=== PATIENT | male | born 1945 | race Caucasian/White ===

== ENCOUNTER → 2016-09-21 | Outpatient (CLI) | payer BC ==
[~2016-09-21] MED LIST: ASPI-232 PO; ERGO1CAP41 PO; LOSA1TAB PO; LPT40 PO; METO50TA7 PO; PHEN-905 PO; SIMV40TA2 PO
[2016-09-21 15:33] LABS: BASO % 0.4 %; BASO ABS # 0.03 K/uL (0-0.2); COMPLETE YES; EOS % 6.6 %; HEMATOCRIT 39.2 % (42-52); IG% 0.1 %; LYMPH % 14.6 %; LYMPH ABS # 1.22 K/uL (1.2-3.4); MEAN CELL VOLUME 93.1 fL (80-100); MEAN CORPUSCULAR HEMOGLOBIN 32.8 pg (25-34); MEAN CORPUSCULAR HGB CONC 35.2 g/dl (32-36); MEAN PLATELET VOLUME 10.5 fL (7.4-10.4); MONO % 9.9 %; NEUT % 68.4 %; PLATELET COUNT 181 K/uL (130-400); RED BLOOD COUNT 4.21 M/uL (4.7-6.1); WHITE BLOOD COUNT 8.36 K/uL (4.8-10.8)
[2016-09-21 15:36] LABS: MANUAL MICROSCOPIC REQUIRED? NO; REVIEW REQ? NO; URINE APPEARANCE CLEAR (CLEAR); URINE BILIRUBIN NEG (NEG); URINE COLOR YELLOW; URINE EPITHELIAL CELL AUTO 0-5 /lpf (0-5); URINE NITRITE NEG (NEG); URINE SPECIFIC GRAVITY 1.027 (1.000-1.030); UROBILINOGEN NEG (NEG); ZZUR CULT IF INDIC CLEAN CATCH NO
[2016-09-21 15:45] LABS: BLOOD UREA NITROGEN 16 mg/dl (7-18); BUN/CREATININE RATIO 11.7 (10-20); CALCIUM 9.1 mg/dl (8.5-10.1); CARBON DIOXIDE 28 mmol/L (21-32); CHLORIDE 107 mmol/L (98-107); GLUCOSE 109 mg/dl (70-99); MAGNESIUM 2.3 mg/dl (1.8-2.4); POTASSIUM 4.4 mmol/L (3.5-5.1); SODIUM 144 mmol/L (136-145)
[2016-09-21 15:47] LABS: PHOSPHORUS 2.9 mg/dl (2.5-4.9)
[2016-09-21 16:08] LABS: URINE PROTIEN/CREAT RATIO 0.1 (0-0.2); URINE TOTAL PROTEIN 13.2 mg/dl (0-11.9)
== END | disposition home or self-care (01) ==
LOC: C.LAB1850 14:14
PROVIDERS: ATTEND Internal Medicine Nephrology
DX: N18.3 Chronic kidney disease, stage 3 (moderate) (principal)

== ENCOUNTER 2017-02-14 12:45 | Inpatient (IN) | payer BC, OTHER ==
[~2017-02-14] VITALS: Ht 188 cm; Wt 88.9 kg
[~2017-02-14 12:45] MED LIST changes: -ERGO1CAP41 PO; -LPT40 PO
[2017-02-14] MEDS ORDERED: ASPIRIN 81 MG CHEW PO STA (13:13)
[2017-02-14] MEDS ORDERED: LPT40 PO (13:32)
[2017-02-14] MEDS ORDERED: ERGO1CAP41 PO (13:32)
--- NOTE | 2017-02-14 13:39 | EMERGENCY ROOM VISIT NOTE ---
History Report prepared by Yanet: Lucille Howe Under the Supervision of: Dr. Iraida Bucio M.D. First contact with patient: 12:53 Chief Complaint: DIZZY Stated Complaint: DIZZY,SWEATING,FLUTTERING- HEART ATTACK 7 YRS AGO Nursing Triage Summary: Pt states he woke up sweating and dizzy. Did not pass but is feeling 95% better. His sister wanted him to be seen. Pt has hx "silent heart attack 7 years ago". Feels like someone tapped his left chest with with a finger. History of Present Illness The patient is a 71 year old male who presents to the Emergency Room with complaints of nearly resolved dizziness that started this morning. The patient describes the dizziness as lightheadedness. He states that he is feeling 95% better. The patient states that he wakes up at 0600 and then takes a nap around 0900. He states he has been doing that for years. The patient states that he woke up not long after falling asleep to take a nap and had a feeling of euphoria. The sensation ended and he fell back asleep. When he woke up from the nap, he experienced lightheadedness, sweating, some weakness of his bilateral arms, and some nausea. He states that he was able to stand, but the lightheadedness was significantly worse with standing. He denies any pain at that time, including chest pain. The patient called his sister because she is an EMT and he wanted to get her opinion on his symptoms. He denies any facial numbness or trouble speaking when talking to her on the phone. The patient's sister encouraged him to come into the ED due to his heart history. The patient states that he had a "silent" heart attack 7 years ago. He states that he had a quintuple bypass and mitral valve repair. The patient states that he has been pretty active since the beginning of the year. He states that he runs on the treadmill and rides a stationary bike every other day and on the other days the patient rides a stationary bike and lifts weights. The patient adds that he has been restricting his diet because he is going on vacation. The patient is a former smoker. He denies any history of diabetes. Source of History: patient Onset: this morning Position: head Quality: other (dizziness) Timing: resolved (nearly) Modifying Factors (Worsening): other (standing) Modifying Factors (Relieving): other (lying flat) Associated Symptoms: + nausea, + weakness (bilateral arms), No chest pain, No numbness Note: lightheadedness, sweating, no trouble speaking Review of Systems See HPI for pertinent positives & negatives. A total of 10 systems reviewed and were otherwise negative. Past Medical & Surgical Medical Problems: (1) Kidney stones Surgical Problems: (1) H/O heart bypass surgery (2) H/O mitral valve repair Family History FH: diverticulitis Social History Smoking Status: Never Smoker Alcohol Use: none Drug Use: none Marital Status: single Occupation Status: retired Current/Historical Medications Scheduled Aspirin (Aspir-81), 1 TAB PO QPM Atorvastatin (Atorvastatin Calcium), 40 MG PO QPM Ergocalciferol (Vitamin D 56219 Unit), 1 CAP PO MONTHLY Losartan Potassium (Cozaar), 25 MG PO QAM Metoprolol Succ (Toprol Xl) (Toprol-Xl), 50 MG PO QAM Fszzavhueftmq-Lkctxktxbb-Iacmc (Nyquil Severe Cold/Flu 5-6.25-10-325 mg/15Ml), 10 ML PO HS Allergies Coded Allergies: NO KNOWN DRUG ALLERGIES (Unverified Allergy, Unknown, NO, 02/14/17) Uncoded Allergies: SUNLIGHT (Allergy, Unknown, UNKNOWN, 02/14/17) Physical Exam Vital Signs Date Time Temp Pulse Resp B/P (MAP) Pulse Ox O2 Delivery O2 Flow Rate FiO2 02/14/17 14:40 Room Air 02/14/17 14:14 65 18 144/72 96 Room Air 02/14/17 13:32 63 18 127/71 98 Room Air 02/14/17 12:59 79 02/14/17 12:49 36.5 69 17 130/85 94 Room Air Physical Exam Vital signs reviewed. General: Well-appearing elderly male, in no significant distress. HEENT: No scleral icterus, PERRLA, neck supple. Atraumatic. Cardiovascular: Regular rate and rhythm, no extra sounds. Pulmonary: Clear to auscultation bilaterally, normal work of breathing. Abdomen: Soft, nontender, nondistended, positive bowel sounds. Musculoskeletal: Atraumatic, no peripheral edema. Neurologic: Patient awake alert and oriented x 3, full strength in all 4 extremities. Cranial nerves 2 through 12 grossly intact. Skin: Warm, dry, no rash Medical Decision & Procedures ER Provider Diagnostic Interpretation: Radiology results as stated below per my review and radiologist interpretation: CHEST ONE VIEW PORTABLE FINDINGS: Postoperative changes and a mitral valve ring is noted. The heart is normal in size. There are suture material within the left hilum. The lungs are clear. No pleural effusions. No pneumothorax. IMPRESSION: No acute process. Electronically signed by: Sd Regalado M.D. 02/14/2017 1:52 PM Dictated Date/Time: 02/14/2017 1:49 Laboratory Results 02/14/17 13:00 Red Blood Count 4.58, Mean Corpuscular Volume 93.4, Mean Corpuscular Hemoglobin 31.9, Mean Corpuscular Hemoglobin Concent 34.1, Mean Platelet Volume 10.7, Neutrophils (%) (Auto) 81.1, Lymphocytes (%) (Auto) 11.6, Monocytes (%) (Auto) 6.2, Eosinophils (%) (Auto) 0.7, Basophils (%) (Auto) 0.2, Neutrophils # (Auto) 8.01, Lymphocytes # (Auto) 1.15, Monocytes # (Auto) 0.61, Eosinophils # (Auto) 0.07, Basophils # (Auto) 0.02 02/14/17 13:00 Test 02/14/17 13:00 02/14/17 13:24 White Blood Count 9.88 K/uL (4.8-10.8) Red Blood Count 4.58 M/uL (4.7-6.1) Hemoglobin 14.6 g/dL (14.0-18.0) Hematocrit 42.8 % (42-52) Mean Corpuscular Volume 93.4 fL (80-100) Mean Corpuscular Hemoglobin 31.9 pg (25-34) Mean Corpuscular Hemoglobin Concent 34.1 g/dl (32-36) Platelet Count 200 K/uL (130-400) Mean Platelet Volume 10.7 fL (7.4-10.4) Neutrophils (%) (Auto) 81.1 % Lymphocytes (%) (Auto) 11.6 % Monocytes (%) (Auto) 6.2 % Eosinophils (%) (Auto) 0.7 % Basophils (%) (Auto) 0.2 % Neutrophils # (Auto) 8.01 K/uL (1.4-6.5) Lymphocytes # (Auto) 1.15 K/uL (1.2-3.4) Monocytes # (Auto) 0.61 K/uL (0.11-0.59) Eosinophils # (Auto) 0.07 K/uL (0-0.5) Basophils # (Auto) 0.02 K/uL (0-0.2) RDW Standard Deviation 45.8 fL (36.4-46.3) RDW Coefficient of Variation 13.3 % (11.5-14.5) Immature Granulocyte % (Auto) 0.2 % Immature Granulocyte # (Auto) 0.02 K/uL (0.00-0.02) Prothrombin Time 11.0 SECONDS (9.0-12.0) Prothromb Time International Ratio 1.0 (0.9-1.1) Activated Partial Thromboplast Time 24.5 SECONDS (21.0-31.0) Partial Thromboplastin Ratio 0.9 Anion Gap 9.0 mmol/L (3-11) Est Creatinine Clear Calc Drug Dose 51.0 ml/min Estimated GFR () 53.1 Estimated GFR (Non- 45.9 BUN/Creatinine Ratio 11.4 (10-20) Calcium Level 8.9 mg/dl (8.5-10.1) Total Bilirubin 1.0 mg/dl (0.2-1) Direct Bilirubin 0.2 mg/dl (0-0.2) Aspartate Amino Transf (AST/SGOT) 22 U/L (15-37) Alanine Aminotransferase (ALT/SGPT) 27 U/L (12-78) Alkaline Phosphatase 56 U/L (45-117) Total Creatine Kinase 260 U/L (39-308) Creatine Kinase MB 2.2 ng/ml (0.5-3.6) Creatine Kinase MB Ratio 0.8 (0-3.0) Total Protein 8.0 gm/dl (6.4-8.2) Albumin 4.3 gm/dl (3.4-5.0) Bedside Troponin I 0.310 ng/ml (0-0.045) Laboratory results per my review. Medications Administered Medications (Trade) Dose Ordered Sig/Monica Route Start Time Stop Time Status Last Admin Dose Admin Aspirin (Aspirin Chew) 243 mg NOW STAT PO 02/14/17 13:13 6/18/17 13:16 DC 02/14/17 13:31 243 MG Heparin Sodium/ Dextrose (Heparin 25,000 Unit/500ml D5W) 25,000 unit STK-MED ONCE .ROUTE 02/14/17 13:59 02/14/17 14:00 DC 02/14/17 14:10 25,000 UNIT Heparin Sodium (Porcine) (Heparin Sq 5000 Unit/0.5ml) 5,000 unit STK-MED ONCE .ROUTE 02/14/17 14:00 02/14/17 14:01 DC 02/14/17 14:10 5,000 UNIT ECG Rate (beats per minute): 75 Rhythm: sinus rhythm Findings: 1st degree AV block, no acute ischemic change, no ectopy, other ( nonspecific intraventricular conduction delay) Comparison ECG Date: 05/15/2010 Change: T-waves are no longer inverted laterally ED Course 1257: Past medical records reviewed. The patient was evaluated in room B11. A complete history and physical examination was performed. 1313: Ordered Aspirin 243 mg PO IV 1348: Ordered Heparin Sodium/Dextrose 1 ea 1350: Upon reevaluation, the patient is resting comfortably. I discussed laboratory and radiographic results with him. He verbalized agreement of the treatment plan. The patient will be evaluated for further management and care. 1354: I reviewed the patient's case with Dr. Nia Dahl - [facility]. He will evaluate the patient for further management. Medical Decision Differential diagnoses includes acute coronary syndrome, pulmonary embolus, aortic dissection, musculoskeletal pain, pneumonia, pleural effusion, pneumothorax, gastritis, peptic ulcer disease. Medication Reconciliation: I attest that I have personally reviewed the patient' s current medication list. Blood Pressure Screening: Patient was found to have a slightly elevated blood pressure due to circumstances. I do not believe that the patient requires hypertension monitoring. This pt was evaluated and appeared to be in no distress. IV access was obtained and lab work was drawn. He was given aspirin to chew. EKG was obtained and reveals 1st degree AV block, intraventricular conduction delay. Laboratory work reveals a mild elevation of the cardiac enzymes at 0.31. Patient was placed on a low-dose heparin drip. Chest x-ray reveals postsurgical change. He was discussed with the hospitalist service will evaluate the patient for admission and further management. Patient is aware of the plan and agrees. Consults Time Called: [id number] Consulting Physician: Dr. Nia CURTIS Returned Call: [phone] I reviewed the patient's case with Dr. Nia CURTIS. He will evaluate the patient for further management. Impression Primary Impression: Acute coronary syndrome Scribe Attestation The scribe's documentation has been prepared under my direction and personally reviewed by me in its entirety. I confirm that the note above accurately reflects all work, treatment, procedures, and medical decision making performed by me. Departure Information Dispostion Being Evaluated By Hospitalist Referrals No Doctor, Assigned (PCP) Patient Instructions [facility]
[2017-02-14 13:44] LABS: BASO % 0.2 %; BASO ABS # 0.02 K/uL (0-0.2); COMPLETE YES; EOS % 0.7 %; HEMATOCRIT 42.8 % (42-52); IG% 0.2 %; LYMPH % 11.6 %; LYMPH ABS # 1.15 K/uL (1.2-3.4); MEAN CELL VOLUME 93.4 fL (80-100); MEAN CORPUSCULAR HEMOGLOBIN 31.9 pg (25-34); MEAN CORPUSCULAR HGB CONC 34.1 g/dl (32-36); MEAN PLATELET VOLUME 10.7 fL (7.4-10.4); MONO % 6.2 %; NEUT % 81.1 %; PLATELET COUNT 200 K/uL (130-400); RED BLOOD COUNT 4.58 M/uL (4.7-6.1); WHITE BLOOD COUNT 9.88 K/uL (4.8-10.8)
[2017-02-14 13:51] LABS: BUN/CREATININE RATIO 11.4 (10-20); CALCIUM 8.9 mg/dl (8.5-10.1); CREATININE 1.5 mg/dl (0.60-1.40); POTASSIUM 4.2 mmol/L (3.5-5.1)
--- NOTE | 2017-02-14 13:53 | DIAGNOSTIC IMAGING REPORT ---
CHEST ONE VIEW PORTABLE HISTORY: Atypical chest pain. COMPARISON: Chest CT 09/04/2011. FINDINGS: Postoperative changes and a mitral valve ring is noted. The heart is normal in size. There are suture material within the left hilum. The lungs are clear. No pleural effusions. No pneumothorax. IMPRESSION: No acute process. Electronically signed by: Sd Regalado M.D. 02/14/2017 1:52 PM Dictated Date/Time: 02/14/2017 1:49 PM
[2017-02-14 13:56] LABS: CKMB/CK RATIO 0.8 (0-3.0)
[2017-02-14] MEDS ORDERED: HEPARIN 25000 UNIT/500 ML D5W ONE (13:59)
[2017-02-14] MEDS ORDERED: HEPARIN SOD 5000 UNIT/0.5 ML CARP ONE (14:00)
[2017-02-14 14:01] LABS: PARTIAL THROMBOPLASTIN RATIO 0.9
[2017-02-14] MEDS ORDERED: MAGNESIUM HYDROXIDE SUSP 30 ML UDC PO PRN (14:15)
[2017-02-14] MEDS ORDERED: MoRPHine SULFATE 2 MG/ML CARP IV PRN (14:15)
[2017-02-14] MEDS ORDERED: NITROGLYCERIN 0.4 MG SL PER TAB CHARGE SL PRN (14:15)
[2017-02-14] MEDS ORDERED: POLYETHYLENE (MIRALAX) 17 GM PACK PO PRN (14:15)
[2017-02-14] MEDS ORDERED: ALUMINUM/MAGNESIUM/SIMETH (MAALOX MAX) 30 ML UDC PO PRN (14:15)
[2017-02-14 14:40] VITALS: Ht 188 cm; Wt 88.9 kg
--- NOTE | 2017-02-14 15:20 | DIAGNOSTIC IMAGING REPORT ---
HEAD CT NONCONTRAST CT DOSE: 614.27 mGy.cm HISTORY: dizziness TECHNIQUE: Multiaxial CT images of the head were performed without the use of intravenous contrast. Automated exposure control was utilized for this study. Comparison: None. Findings: The paranasal sinuses and mastoid air cells are clear. The calvarium and skull base are intact. The ventricles and sulci are within normal limits. There is no mass, hematoma, midline shift, or acute infarct. There is crowding of the cerebellar tonsils at the foramen magnum. 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 No hydrocephalus. Impression: No acute intracranial abnormality. 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 This can be confirmed with nonemergent follow-up brain MRI. Electronically signed by: Sd Regalado M.D. 02/14/2017 3:19 PM Dictated Date/Time: 02/14/2017 3:12 PM
[2017-02-14 15:31] VITALS: BP 133/75; PULSE 66; TEMP 36.6; O2SAT 96
[2017-02-14 15:59] VITALS: BP 123/68; PULSE 60; TEMP 36.8; O2SAT 96
[2017-02-14 16:00] VITALS: O2SAT 96
[2017-02-14] MEDS ORDERED: ASPIRIN 81 MG CHEW PO SCH (16:00)
[2017-02-14] MEDS ORDERED: NURSING VERBAL MED ORDER ONE ×2 (16:15→17:45)
[2017-02-14] MEDS: HEPARIN 25,000 UNIT/500ML D5W 500 ML IV PRN ×2 (16:36→23:44)
[2017-02-14] MEDS: SODIUM CHLORIDE 0.9% 1000ML 1,000 ML IV SCH (16:36)
[2017-02-14] MEDS: NITROGLYCERIN OINT 2% 1GM PACKET EXT SCH ×2 (16:37→22:51)
--- NOTE | 2017-02-14 17:54 | HISTORY & PHYSICAL EXAMINATION ---
DATE OF ADMISSION: 02/14/2017 CHIEF COMPLAINT: Dizziness. HISTORY OF PRESENT ILLNESS: The patient is a 71-year-old white man with past medical history of CAD status post CABG in 2009. Also had history of atrial fibrillation around that time, status post cardioversion, not on any anticoagulation since then. The patient was in his regular state of health, was going for a trip to [place] today with his sister, so he has been trying to lose weight and successfully was able to lose about 5 pounds. The patient today woke up in the morning at 6:00 a.m., had breakfast and went to sleep again for an hour. While he was sleeping, he described a very strange feeling of chest , pleasant feeling, like euphoria that comes to him once or twice a year. He had this feeling and he woke up from sleep by that feeling. Then he went back to sleep again. Then he woke up with some lightheadedness and dizziness with diaphoresis, accompanied with weakness in both upper extremities. Denies any chest pain but feels like somebody tapped gently on his chest. That might be the way he is describing palpitations. He called his sister to tell her that he might not be able to come to me today, so she advised him to come to the ED for further evaluation and management. The patient came to the ER. His symptoms of dizziness have resolved and symptoms of diaphoresis also improved. The patient stated that when he had his quintuple bypass 7 years ago and mitral valve repair, he had a silent HI at that time and his only sign was getting exertional shortness of breath. The patient's troponin in ED was borderline positive and ER physician has initiated heparin drip and called me for evaluation. REVIEW OF SYSTEMS: Denies any headache but admits to dizziness. Denies any blurring of vision. Denies any chest pain, but describes a feeling of tapping in his chest as per HPI. Denies any diarrhea, blood in the stool. Denies any burning sensation in the urine or blood. Denies any abdominal pain, nausea, vomiting. Denies any runny nose, stuffy nose, sore throat. Denies any cough. Admits to some shortness of breath accompanying the symptoms described above. Denies any fever or chills. Denies any depression or psychological illness. Denies any joint swelling or pain. Denies any rash or ulcers on the skin. Denies any lymph nodes or bruises. FAMILY HISTORY: Father from heart attack at age 64. SOCIAL HISTORY: He is a remote smoker, quit smoking in 1988. PAST MEDICAL HISTORY: 1. Kidney stones. 2. CAD, status post bypass and mitral valve repair. 3. Atrial fibrillation, status post cardioversion in 2009. 4. Chronic kidney disease stage II-III. HOME MEDICATIONS: Aspirin 81 mg daily, atorvastatin 40 mg daily, vitamin D 50,000 units daily, losartan 25 mg q.a.m., metoprolol 50 mg p.o. q.a.m. ALLERGIES: No known drug allergies. PHYSICAL EXAMINATION: VITAL SIGNS: Temperature 36.5, heart rate 65, respirations 18, blood pressure 144/72, pulse ox 96% on room air. HEENT: No jaundice, no pallor, wet mucous membranes. NECK: Supple. HEART: S1, S2 normal. No gallop, rub or murmur. LUNGS: Clear to auscultation bilaterally. Normal chest wall expansion. ABDOMEN: Soft, nontender, nondistended. NEUROLOGIC: Awake, alert, oriented to time, place, and person. Moves all extremities. Sensation intact. Cranial nerves II-XII appear to be intact. SKIN: No rash or erythema. LOWER EXTREMITIES: No swelling, edema or cyanosis. PSYCHIATRIC: Appropriate affect and process of thinking. IMAGING: Chest x-ray showed no acute process. LABORATORY DATA: White blood cell count 9.8, hemoglobin 14.6, platelet 200. Blood sugar 110, BUN 17, creatinine 1.5, sodium 143, potassium is 4.7. Bedside troponin was 0.3. EKG with sinus rhythm, first degree AV block, no acute ischemic changes but nonspecific ST-T wave changes. ASSESSMENT AND PLAN: 1. Non-ST elevation myocardial infarction versus elevated troponin underneath. Admit patient to telemetry. 2. Sublingual nitroglycerin p.r.n. symptoms or pain. 3. Restart his beta gema. 4. Aspirin. 5. One dose of Lipitor 80 mg and then from tomorrow, he can go back to 40 mg daily. 6. Obtain hemoglobin A1c. 7. Obtain lipid panel to stratify his risk. 8. Consult morning show host. 9. Serial cardiac enzymes. 10. Hypertension. Start the patient's metoprolol. Monitor blood pressure. Hold losartan for possible contrast exposure if needed. 11. Chronic kidney disease stage III, currently at baseline 1.5 creatinine. We will start patient on Mucomyst oral for anticipated contrast exposure if cardiac catheterization is required. 12. Continue IV fluid hydration. 13. Dizziness, currently resolved. 14. Obtain CT scan head prior to starting heparin. Rule out any intracranial pathology. 15. History of coronary artery disease status post CABG, management as above. 16. We will follow up next troponin set. If there is worsening in troponin, we will consult morning show host stat. Further recommendation will follow. MTDD
[2017-02-14] MEDS: ATORVASTATIN 40 MG TAB PO SCH (18:32)
[2017-02-14 19:22] VITALS: BP 111/62; PULSE 57; TEMP 37.7; O2SAT 95
[2017-02-14] MEDS: ACETAMINOPHEN 325 MG TAB PO PRN (20:51)
[2017-02-14] MEDS: METOPROLOL TARTRATE 25 MG TAB PO SCH (21:00)
[2017-02-14] MEDS: ACETYLCYSTEINE 1200 MG/6 ML SYR PO SCH (21:18)
[2017-02-14 22:32] LABS: PARTIAL THROMBOPLASTIN RATIO 1.4
[2017-02-14 23:24] VITALS: BP 113/52; PULSE 50; TEMP 36.5; O2SAT 95
[2017-02-14] MEDS ORDERED: HEPARIN IV BOLUS 7,000 UNIT in SYRINGE 0 ML IV STA (23:33)
[2017-02-15] MEDS: NITROGLYCERIN OINT 2% 1GM PACKET EXT SCH ×2 (03:49→10:23)
[2017-02-15 04:00] VITALS: BP 116/56; PULSE 45; TEMP 36.7; O2SAT 96
[2017-02-15] MEDS: SODIUM CHLORIDE 0.9% 1000ML 1,000 ML IV SCH (05:28)
[2017-02-15 05:53] LABS: BASO % 0.4 %; BASO ABS # 0.03 K/uL (0-0.2); COMPLETE YES; EOS % 4.5 %; HEMATOCRIT 36.7 % (42-52); IG% 0.1 %; LYMPH % 23.6 %; LYMPH ABS # 1.59 K/uL (1.2-3.4); MEAN CELL VOLUME 92.7 fL (80-100); MEAN CORPUSCULAR HEMOGLOBIN 31.8 pg (25-34); MEAN CORPUSCULAR HGB CONC 34.3 g/dl (32-36); MEAN PLATELET VOLUME 10.4 fL (7.4-10.4); MONO % 10.1 %; NEUT % 61.3 %; PLATELET COUNT 147 K/uL (130-400); RED BLOOD COUNT 3.96 M/uL (4.7-6.1); WHITE BLOOD COUNT 6.74 K/uL (4.8-10.8)
[2017-02-15 06:15] LABS: PARTIAL THROMBOPLASTIN RATIO 4.1
[2017-02-15 06:19] LABS: BUN/CREATININE RATIO 12.4 (10-20); CALCIUM 7.9 mg/dl (8.5-10.1); CREATININE 1.2 mg/dl (0.60-1.40); MAGNESIUM 2.3 mg/dl (1.8-2.4); POTASSIUM 3.8 mmol/L (3.5-5.1)
[2017-02-15 06:29] LABS: ALB/GLOB RATIO 1.1 (0.9-2); CHOLESTEROL/HDL RATIO 2.1
[2017-02-15] MEDS: ACETAMINOPHEN 325 MG TAB PO PRN (06:37)
[2017-02-15] MEDS: ATORVASTATIN 40 MG TAB PO SCH (08:18)
[2017-02-15 08:20] LABS: ESTIMATED AVERAGE GLUCOSE 123 mg/dl; HA1C FLAG Normal (Normal)
[2017-02-15] MEDS: METOPROLOL TARTRATE 25 MG TAB PO SCH (08:22)
[2017-02-15 08:28] VITALS: BP 106/69; PULSE 58; TEMP 36.6; O2SAT 94
[2017-02-15] MEDS ORDERED: ASPIRIN 325 MG ECTAB PO SCH (09:00)
[2017-02-15] MEDS: ACETYLCYSTEINE 1200 MG/6 ML SYR PO SCH (10:22)
[2017-02-15 11:43] VITALS: BP 117/55; PULSE 51; TEMP 36.7; O2SAT 95
--- NOTE | 2017-02-15 12:23 | CARDIOLOGY CONSULTATION ---
DATE OF CONSULTATION: 02/15/2017 REFERRING PHYSICIAN: Dr. Lis Montalvo. CHIEF COMPLAINT: Dizziness. HISTORY OF PRESENT ILLNESS: Mr. Raymond Longoria is a 71-year-old gentleman with a history of coronary artery disease and mitral valve repair, who experienced an episode of dizziness yesterday morning. The patient states that he awoke at his usual time at 6:00 a.m. in the morning and performed some activities such as packing his car for a scheduled trip to [place]. Approximately at 9:30, the patient decided to lie down for a brief nap during which time he felt a brief episode of a "head sanderson." This is a sensation that he experiences perhaps twice a year. It is a sense of almost euphoria. When awoke from sleep, he was feeling well but attempted to get up out of bed and felt quite dizzy, this was also associated with diaphoresis. The patient felt like he should lie back down, and upon awakening later that morning, he felt perfectly fine. The patient did not report symptoms of palpitations during this episode. He did not have any nausea. He had no symptoms of chest discomfort, chest pressure or breathing difficulty. Based on the nature of these symptoms, he later called his sister whom he was scheduled to visit and she recommended he seek an evaluation at the medical center. Upon arriving at [facility], serum studies suggested elevated cardiac biomarkers and the patient was, therefore, admitted for observation. It should be noted that at the time of presentation to the Emergency Room, the patient had no symptoms. On interview this morning, the patient claims to be feeling well. He states that this episode was fairly transient in nature and differed from his usual episodes of a "head sanderson" in that there was some diaphoresis and dizziness. He states that he has maintained his usual level of activity recently which involves strenuous exertion at the [facility] several times per week. This involves both aerobic and weight training. He has not had to reduce his activity recently. He has not described additional symptoms recently. He has never had symptoms of chest discomfort or chest pressure even leading up to his bypass surgery. It seems that the patient's surgery was indicated more for valvular heart disease and he was discovered to have significant coronary disease in the process of that evaluation. The patient states that his exercise tolerance leading up to his valve repair was the primary symptom. PAST MEDICAL HISTORY: 1. Mitral regurgitation, status post valve repair in 2009. 2. Coronary artery disease. The patient is status post 5-vessel bypass in 2009. 3. Left atrial appendage ligation. 4. Postoperative atrial fibrillation, no documented recurrence. 5. Mild renal insufficiency. 6. Diverticulosis. 7. Nephrolithiasis. 8. Secondary hyperparathyroidism. 9. Vocal cord paralysis. 10. Allergic rhinitis. PAST SURGICAL HISTORY: Significant for: 1. The aforementioned mitral valve repair, 5-vessel bypass, and left atrial appendage ligation in 2009. 2. Tonsillectomy. FAMILY HISTORY: Significant for coronary artery disease but not premature disease. SOCIAL HISTORY: The patient is a former smoker, currently a nonsmoker. He denies significant alcohol use. Currently lives independently. REVIEW OF SYSTEMS: A complete review of systems was performed and the pertinent positives noted in the history of present illness, the remainder being negative. He otherwise claims to be eating well, although he is watching his weight and has effected some mild weight loss. He denies any change in his bowel or bladder habits. He denies any sense of palpitation. He has not noticed any change in his exercise tolerance recently. PHYSICAL EXAMINATION: GENERAL: The patient did not appear to be in any acute distress. He is a pleasant individual who is alert and oriented. His mood and affect appear normal. He answers all questions appropriately. VITAL SIGNS: Include blood pressure of 106/69 with a pulse of 58. HEENT: Sclerae anicteric. His pupils are equal, reactive to light and accommodation. Extraocular movements are intact. NECK: Palpation of submandibular region did not reveal any significant lymphadenopathy. The carotids are palpable bilaterally. I did not appreciate any bruits on auscultation. There is no evidence of jugular venous distention. Thyroid is not enlarged. LUNGS: Auscultation of both lung carrera reveals them to be clear. There are no rales, wheezes or rhonchi. He has good respiratory effort without use of accessory muscles. CARDIAC: Reveals him to be in a regular rhythm. S1, S2 appear to be normal. I did not appreciate any murmurs on exam and the PMI is not markedly displaced on palpation. He has a well-healed midline sternal scar. ABDOMEN: Soft and nontender. EXTREMITIES: Evaluation of both wrists reveals radial pulses that are equal in intensity. There is no evidence of cyanosis or clubbing. Evaluation of his lower extremities did not reveal any significant peripheral edema. SKIN: I did not appreciate any rashes on exam today. NEURLOGIC: Reveals cranial nerves to be intact. LABORATORY STUDIES: Obtained since admission included sodium of 142, potassium of 3.8, BUN was 15, creatinine was 1.2. Serial cardiac biomarkers were 0.2, then 0.18, then 0.12. Total CK was 350. White cell count was 6.7, hemoglobin was 12.6, platelet count was 147. A head CT was obtained at the time of admission which did not reveal any intracranial abnormality with the exception of a possible Chiari I malformation. Single-view chest x-ray was also obtained which did not reveal any acute process. A 12-lead EKG was obtained at the time of admission which revealed the patient to be in a normal sinus rhythm with nonspecific intraventricular conduction delay and a first-degree AV block. On review of the patient's outpatient record, review of the EKG did not differ significantly from that obtained at the time of admission. The patient's last echocardiogram was 11/2012, that revealed normal LV systolic function with mild LVH and a normal mitral valve status post repair. ASSESSMENT AND PLAN: 1. Dizziness: During the patient's admission, he has had some evidence of bradycardia and brief sinus pauses. It is unclear whether this played a role in the patient's symptoms yesterday. Some of the symptoms sound as if they were vagally mediated with the significant diaphoresis and dizziness. He also felt that his usual routine of napping in a cool air-conditioned room was different yesterday when he napped in a separate room that was quite hot. Whether this played a role in his diaphoresis is unclear. He may have had a period of transient hypotension. Based on his telemetry findings, relative bradycardia and the episode yesterday would seem reasonable to reduce his metoprolol to 25 mg daily and monitor him for additional symptoms. It should be noted that outside of the diaphoresis experienced today, he has had similar symptoms in the past that are quite infrequent and well tolerated. 2. Elevated cardiac biomarkers: It does appear that the patient had a non-ST elevation myocardial infarction based on the trend downward of his markers. I do not believe this is likely a plaque rupture event as the patient had no symptoms to that extent. Also, no intervention was performed. These elevations may be related to a period of transient hypotension associated with significant vagal output as manifested by his symptoms. He is otherwise a healthy individual who has been exercising regularly without symptoms of angina or coronary insufficiency. I would continue him on his usual medications with the exception of the dose adjustment noted above. I think an outpatient evaluation for coronary ischemia would be reasonable. 3. Coronary artery disease: The patient is on aggressive regimen for secondary prevention. No current symptoms of coronary ischemia or insufficiency. 4. Valvular heart disease. The patient appears to have undergone a successful valve repair in 2009 without evidence on exam of mitral regurgitation. 5. Bradycardia. The patient does have bradycardia with periods of sinus arrest. I think at this point reduction in his metoprolol dose would be reasonable. Thank you. RAFAELA
[2017-02-15] MEDS ORDERED: METO50TA7 PO (13:58)
--- NOTE | 2017-02-15 14:03 | Discharge Instructions ---
Discharge Instructions Date of Service Feb 15, 2017. Admission Reason for Admission: Presyncope,Elevated troponin Discharge Discharge Diagnosis / Problem: Presyncope,elevated troponin Discharge Goals Goal(s): Improve disease control, Therapeutic intervention Activity Recommendations Activity Limitations: resume your previous activity Shower/Bathe: no limitations Driving or Machine Use: no limitations . Instructions / Follow-Up Instructions / Follow-Up You were admitted to to some lightheadedness or dizziness and had an elevation in your cardiac markers of the blood called "troponin." This was only a mild elevation and was not consistent with a heart attack. You had a low heart rate while you were here and the dose of your metoprolol was cut in half to 25mg once daily. You will need an outpatient stress test to be arranged by your Review Analyst Dr. Francis. Please call his office to arrange an appointment with him. Please follow up with your PCP as well within 1 week. Current Hospital Diet Patient's current hospital diet: AHA Diet (Heart Healthy) Discharge Diet Recommended Diet: AHA Diet (Heart Healthy) Procedures Procedures Performed: Head CT Chest xray Pending Studies Studies pending at discharge: no Laboratory Results Hemoglobin A1c Test 02/15/17 05:32 Range/Units Estimated Average Glucose 123 mg/dl Hemoglobin A1c 5.9 H 4.5-5.6 % Lipid Panel Test 02/15/17 05:32 Range/Units Triglycerides Level 59 0-150 mg/dl Cholesterol Level 75 0-200 mg/dl HDL Cholesterol 35 mg/dl Cholesterol/HDL Ratio 2.1 LDL Cholesterol, Calculated 28 mg/dl Medical Emergencies . Who to Call and When: Medical Emergencies: If at any time you feel your situation is an emergency, please call 911 immediately. . Non-Emergent Contact Non-Emergency issues call your: Primary Care Provider, Review Analyst Call Non-Emergent contact if: you have any medication questions if you have recurrence of lightheadedness. . . "Provider Documentation" section prepared by Lis Montalvo. . VTE Core Measure Inpt VTE Proph given/why not?: Unfractionated heparin SQ
[2017-02-15 14:59] VITALS: BP 117/55; PULSE 51; TEMP 36.7; O2SAT 95
[2017-02-15] MEDS ORDERED: ACETYLCYSTEINE 600 MG CAP PO SCH (21:00)
--- NOTE | 2017-02-19 14:51 | EDITING REQUIRED CODING QUERY ---
CODING QUERY Dear Dr. Montalvo, To promote full compliance with coding requirements relating to patient care, provider participation is requested in all cases of patient sitter uncertainty. Please assist us with the question(s) below: Coding Question(s): NSTEMI was mentioned on the H and P but not on the Discharge Instructions. Did the patient have? Please crystal all that apply with an "x" in the parentheses (X). ( ) STEMI ( x ) Possible NSTEMI ( ) NSTEMI ( ) NSTEMI was ruled out ( ) STEMI was ruled out ( ) Hypotention ( ) Other: Please explain ( ) Unable to determine Medical documentation: Cardiac consult Elevated cardiac biomarkers: It does appear that the patient had a non-ST elevation myocardial infarction based on the trend downward of his markers. I do not believe this is likely a plaque rupture event as the patient had no symptoms to that extent. Also, no intervention was performed. These elevations may be related to a period of transient hypotension associated with significant vagal output as manifested by his symptoms. H and P ASSESSMENT AND PLAN: 1. Non-ST elevation myocardial infarction versus elevated troponin underneath. Admit patient to telemetry. Discharge Instructions: admission Reason for Admission: Presyncope,Elevated troponin Discharge Discharge Diagnosis / Problem: Presyncope,elevated troponin Physician's Response(s): Thank you for your time. Jenna Watts [facility] Principal Diagnosis: "_that condition established after study, to be chiefly responsible for occasioning the admission of the patient to the hospital for care." Co-Existing Principal Diagnosis: "_when two or more diagnoses equally meet the criteria for principal diagnosis as determined by the circumstances of admission, diagnostic work up, and/or therapy provided, and the Alphabetic Index, Tabular List, or another coding guideline does not provide sequencing direction, any one of the diagnoses may be sequenced first." "When the physician has documented what appears to be a current diagnosis in the body of the record, but has not included the diagnosis in the final diagnostic statement, the physician should be asked whether the diagnosis should be added." (Source Coding Clinic 2 QTR90. p3-4)
--- NOTE | 2017-03-07 14:39 | Discharge Summary ---
Discharge Summary Date of Service Feb 15, 2017. Discharge Summary Admission Date: Feb 14, 2017 at 14:22 Discharge Date: Feb 15, 2017 Discharge Disposition: Home Principal Diagnosis: Presyncope,bradycardia Problems/Secondary Diagnoses: Non-ST elevation myocardial infarction versus elevated troponin from demand ischemia Hyperlipidemia Hypertension Chronic kidney disease stage III CAD status post CABG H/o Nephrolithiasis H/o Atrial fibrillation s/p DCCV Mitral regurgitation, status post valve repair in 2009 with Left atrial appendage ligation. Diverticulosis. Secondary hyperparathyroidism. Vocal cord paralysis. 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 Automated exposure control was utilized for this study. Comparison: None. Findings: The paranasal sinuses and mastoid air cells are clear. The calvarium and skull base are intact. The ventricles and sulci are within normal limits. There is no mass, hematoma, midline shift, or acute infarct. There is crowding of the cerebellar tonsils at the foramen magnum. 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 No hydrocephalus. Impression: No acute intracranial abnormality. 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 This can be confirmed with nonemergent follow-up brain MRI. Chest xray-negative Consultations: Cardiology Medication Reconciliation Changed Medications: Metoprolol Succ (Toprol Xl) (Toprol-Xl) 50 Mg Tabcr 25 MG PO QAM for 30 Days, TAB (Changed from: 50 MG) He has the 50mg tabs at home and will break in half Continued Medications: Aspirin (Aspir-81) 81 Mg Tab 1 TAB PO QPM, 3 Refills Atorvastatin (Atorvastatin Calcium) 40 Mg Tab 40 MG PO QPM, #90 Ergocalciferol (Vitamin D 90566 Unit) 50,000 Unit Cap 1 CAP PO MONTHLY, #4 Losartan Potassium (Cozaar) 25 Mg Tab 25 MG PO QAM, TAB Discontinued Medications: Jsknodvhubmel-Ycfzowxkxa-Yphxb (Nyquil Severe Cold/Flu 5-6.25-10-325 mg/15Ml) 1 Liq Liq 10 ML PO HS Referrals At Discharge Follow up Referrals: Transit Planning Director Referral - Within 1-2 Weeks with Konrad Francis MD Physician Referral - Within 1 Week with Ricotta, Grace M., DO Discharge Exam Review of Systems: Constitutional: No problem reported Eyes: No problem reported ENT: No problem reported Respiratory: No problem reported Cardiovascular: No problem reported Abdomen: No problem reported Musculoskeletal: No problem reported Genitourinary - Male: No problem reported Neurologic: No problem reported Psychiatric: No problem reported Endocrine: No problem reported Hematologic / Lymphatic: No problem reported Integumentary: No problem reported Physical Exam: General Appearance: WD/WN, no apparent distress Eyes: normal inspection, sclerae normal ENT: hearing grossly normal Neck: trachea midline Respiratory/Chest: lungs clear, normal breath sounds, no respiratory distress, no accessory muscle use Cardiovascular: regular rate, rhythm, no edema, no gallop, no murmur, normal peripheral pulses Abdomen / GI: normal bowel sounds, non tender, soft, no organomegaly, no pulsatile mass Extremities: normal inspection, no calf tenderness, no pedal edema Neurologic/Psychiatric: alert, normal mood/affect, oriented x 3 Skin: normal color, warm/dry, no rash Lymphatic: no adenopathy Hospital Course Pt is a 72 yo male with a h/o CAD, post-op A-fib, MV repair, HTN, here with transient dizziness with nausea and diaphoresis, with mildly elevated troponin and mild chest pressure. 1. Dizziness: could be related to bradycardia and some sinus pauses seen on telemetry during admission. May have also been vagally mediated with the significant diaphoresis and dizziness. All symptoms resolved after the brief episode at home and no recurrence here. -reasonable to reduce his metoprolol to 25 mg daily -safe for discharge to home 2. Elevated cardiac biomarkers: mildly elevated and stayed stable, did not rise. This is likely demand ischemia, elevations may be related to a period of transient hypotension associated with significant vagal output as manifested by his symptoms. -needs outpatient ischemic evaluation -continue current meds with exception of reduction in metoprolol as above 3. Coronary artery disease, HTN, Hyperlipidemia: The patient is on aggressive regimen for secondary prevention. No current symptoms of coronary ischemia or insufficiency. 4. Valvular heart disease. The patient appears to have undergone a successful valve repair in 2009 without evidence on exam of mitral regurgitation. 5.. Chronic kidney disease stage III, currently at baseline 1.5 creatinine. -avoid nephrotoxins, renally dose all meds Dispo-to home Total Time Spent: Greater than 30 minutes This includes examination of the patient, discharge planning, medication reconciliation, and communication with other providers. Discharge Instructions Please refer to the electronic Patient Visit Report (Discharge Instructions) for additional information. Follow-Up PCP within 1 week Cardiology within 1-2 weeks Needs outpatient ischemic evaluation Additional Copies To Konrad Francis MD; Grace Aguilera DO
== END 2017-02-15 16:00 | disposition home or self-care (01) | DRG 282 ==
LOC: C.EDB 12:47 → C.2T 14:22 → ENRESERV 14:36
PROVIDERS: ADMIT Internal Medicine; ATTEND Family Medicine
DX: I21.4 Non-ST elevation (NSTEMI) myocardial infarction (principal); R55 Syncope and collapse; R00.1 Bradycardia, unspecified; N18.3 Chronic kidney disease, stage 3 (moderate); I25.10 Atherosclerotic heart disease of native coronary artery without angina pectoris; I48.91 Unspecified atrial fibrillation; I34.0 Nonrheumatic mitral (valve) insufficiency; J38.00 Paralysis of vocal cords and larynx, unspecified; Z79.82 Long term (current) use of aspirin; Z79.899 Other long term (current) drug therapy; Z87.891 Personal history of nicotine dependence; Z95.1 Presence of aortocoronary bypass graft

== ENCOUNTER → 2017-03-05 | Outpatient (CLI) | payer BC ==
[~2017-03-05] MED LIST changes: +ERGO1CAP41 PO; +LPT40 PO; -PHEN-905 PO; +REGADENOSON 0.4 MG/5 ML SYR ONE; -SIMV40TA2 PO
--- NOTE | 2017-03-05 18:48 | Myocardial Perfusion Study ---
Myocardial Perfusion Study Rpt Myocardial Perfusion Study Rpt Date of Service 03/05/2017 Myocardial Perfusion Study Rpt Procedure: 1. Myocardial perfusion study performed in multiple views/images 2. Lexiscan pharmacologic stress ECG Indications: 1. CAD Consent: Informed written consent was obtained prior to the procedure. Ordering physician: Dr. Francis Procedural details: For the stress portion of the study, Lexiscan 0.4 mg was intravenously administered followed by a saline flush. This was followed by 31.5 mCi of technetium 99m Cardiolite, injected at 10:50 a.m. on 03/05/2017. 30 minutes following the injection, imaging of the heart was performed in multiple projections. For the rest portion of the study, 10.6 mCi technetium 99m Cardiolite was injected intravenously at 7:30 a.m. on 03/05/2017. 1 hour following the injection, imaging of the heart was performed in the same projections. Lexiscan stress ECG: Resting ECG demonstrated: Sinus bradycardia with first-degree AV block. 48 bpm. Inferolateral T-wave abnormality. Maximum heart rate: 65 bpm Resting blood pressure: 146/67 mmHg Maximum blood pressure: 146/67 mmHg Maximal, age-predicted heart rate: 44 % Significant ST changes: None Arrhythmia: None Symptoms: No chest pain reported. Findings: Rotating raw imaging demonstrated no significant lung uptake. There is no significant motion artifact. Heart size appeared enlarged. There was maykel artifact and also a focal extracardiac uptake anterior and lateral to the heart , possibly external to the patient.. Myocardial perfusion demonstrated a moderate sized area of moderately reduced uptake in the inferior wall from base to apex which was mostly reversible and rest imaging, suggesting ischemia. There is a small area of mildly reduced uptake in the distal anterior wall and apex, which appeared to be fixed in post stress and rest imaging. Ejection fraction: 48% Wall motion: Severe hypokinesis of the inferior wall. The remainder of the wall segments appear to be mildly global hypokinetic to normal. No significant transient ischemic dilation. Impression: 1. Abnormal myocardial perfusion study suggesting inferior ischemia. 2. Small fixed distal anterior/apical defect may represent attenuation artifact versus small infarct. 3. Mildly reduced LV systolic function. EF 48%. 4. No chest pain reported. 5. Severe hypokinesis of the inferior wall. 6. Nondiagnostic Lexiscan ECG. 7. Message was left for Dr. Francis, as he was unavailable by phone.
== END | disposition home or self-care (01) ==
LOC: C.NUCL 07:00
PROVIDERS: ATTEND Internal Medicine Clinical Cardiac Electrophysiology
DX: I25.10 Atherosclerotic heart disease of native coronary artery without angina pectoris (principal)

== ENCOUNTER → 2017-03-18 | Outpatient (CLI) | payer BC ==
[~2017-03-18] MED LIST changes: -REGADENOSON 0.4 MG/5 ML SYR ONE
[2017-03-18 16:14] LABS: BASO % 0.7 %; BASO ABS # 0.04 K/uL (0-0.2); COMPLETE YES; EOS % 6.5 %; HEMATOCRIT 40.7 % (42-52); LYMPH % 27.9 %; LYMPH ABS # 1.63 K/uL (1.2-3.4); MEAN CELL VOLUME 94.2 fL (80-100); MEAN CORPUSCULAR HEMOGLOBIN 32.2 pg (25-34); MEAN CORPUSCULAR HGB CONC 34.2 g/dl (32-36); MEAN PLATELET VOLUME 10.3 fL (7.4-10.4); MONO % 11.3 %; NEUT % 53.6 %; PLATELET COUNT 181 K/uL (130-400); RED BLOOD COUNT 4.32 M/uL (4.7-6.1); WHITE BLOOD COUNT 5.84 K/uL (4.8-10.8)
[2017-03-18 16:47] LABS: BLOOD UREA NITROGEN 19 mg/dl (7-18); BUN/CREATININE RATIO 13.6 (10-20); CALCIUM 8.9 mg/dl (8.5-10.1); CARBON DIOXIDE 28 mmol/L (21-32); CHLORIDE 108 mmol/L (98-107); GLUCOSE 106 mg/dl (70-99); MAGNESIUM 2.3 mg/dl (1.8-2.4); POTASSIUM 4.1 mmol/L (3.5-5.1); SODIUM 142 mmol/L (136-145)
[2017-03-18 16:48] LABS: PHOSPHORUS 3.3 mg/dl (2.5-4.9)
[2017-03-18 17:20] LABS: URINE APPEARANCE CLEAR (CLEAR); URINE COLOR DK YELLOW; URINE NITRITE NEG (NEG); URINE SPECIFIC GRAVITY 1.032 (1.000-1.030); UROBILINOGEN NEG (NEG); ZZUR CULT IF INDIC CLEAN CATCH NO
[2017-03-18 17:25] LABS: MANUAL MICROSCOPIC REQUIRED? NO; REVIEW REQ? NO
[2017-03-18 17:26] LABS: URINE BILIRUBIN NEG (NEG)
[2017-03-18 17:55] LABS: URINE TOTAL PROTEIN 11.5 mg/dl (0-11.9)
== END | disposition home or self-care (01) ==
LOC: C.LAB1850 15:28
PROVIDERS: ATTEND Internal Medicine Nephrology
DX: N18.3 Chronic kidney disease, stage 3 (moderate) (principal)

== ENCOUNTER → 2017-09-22 | Outpatient (CLI) | payer BC ==
[~2017-09-22] MED LIST changes: -ERGO1CAP41 PO; +ERGO500011 PO
[2017-09-22 15:35] LABS: BASO % 0.5 %; BASO ABS # 0.03 K/uL (0-0.2); EOS ABS # 0.44 K/uL (0-0.5); HEMATOCRIT 41.4 % (42-52); HEMOGLOBIN 14.3 g/dL (14.0-18.0); IG# 0.01 K/uL (0.00-0.02); LYMPH % 27.2 %; LYMPH ABS # 1.49 K/uL (1.2-3.4); MEAN CELL VOLUME 94.1 fL (80-100); MEAN CORPUSCULAR HEMOGLOBIN 32.5 pg (25-34); MEAN CORPUSCULAR HGB CONC 34.5 g/dl (32-36); MEAN PLATELET VOLUME 10.7 fL (7.4-10.4); MONO % 10.8 %; MONO ABS # 0.59 K/uL (0.11-0.59); NEUT % 53.3 %; NEUT ABS # 2.92 K/uL (1.4-6.5); PLATELET COUNT 204 K/uL (130-400); RED CELL DISTRIBUTION WIDTH CV 13.2 % (11.5-14.5); RED CELL DISTRIBUTION WIDTH SD 45.7 fL (36.4-46.3); WHITE BLOOD COUNT 5.48 K/uL (4.8-10.8)
[2017-09-22 15:43] LABS: BLOOD UREA NITROGEN 19 mg/dl (7-18); CALCIUM 9.5 mg/dl (8.5-10.1); CARBON DIOXIDE 28 mmol/L (21-32); CREATININE 1.51 mg/dl (0.60-1.40); GLUCOSE 112 mg/dl (70-99); POTASSIUM 4.2 mmol/L (3.5-5.1); SODIUM 138 mmol/L (136-145)
[2017-09-22 15:44] LABS: PHOSPHORUS 3.4 mg/dl (2.5-4.9)
== END | disposition home or self-care (01) ==
LOC: C.LAB1850 14:16
PROVIDERS: ATTEND Internal Medicine Nephrology
DX: N18.3 Chronic kidney disease, stage 3 (moderate) (principal)

== ENCOUNTER → 2017-12-27 | Outpatient (CLI) | payer BC ==
[~2017-12-27] MED LIST changes: -METO50TA7 PO; +METO50TA8 PO
== END | disposition home or self-care (01) ==
LOC: C.LABSPEC 10:41
PROVIDERS: ATTEND Nurse Practitioner Family
DX: R30.0 Dysuria (principal)

== ENCOUNTER → 2018-01-03 | Outpatient (CLI) | payer BC | END | disposition home or self-care (01) | LOC: C.LAB1850 10:50 | PROVIDERS: ATTEND Nurse Practitioner Family | DX: R30.0 Dysuria (principal) ==

== ENCOUNTER → 2018-04-05 | Outpatient (CLI) | payer BC | END | disposition home or self-care (01) | LOC: C.LAB1850 11:55 | PROVIDERS: ATTEND Neuromusculoskeletal Medicine & OMM | DX: N20.0 Calculus of kidney (principal); R30.0 Dysuria; N40.1 Benign prostatic hyperplasia with lower urinary tract symptoms ==

== ENCOUNTER 2021-03-24 18:14 | Inpatient (IN) ==
[2021-03-24] MEDS ORDERED: dilTIAZem HCl 5 MG/ML 5 ML VIAL IV STA ×2 (18:43→19:30)
[2021-03-24] MEDS ORDERED: THIAMINE HCL 200 MG in SODIUM CHLORIDE 0.9% 50 ML IV STA (18:43)
[2021-03-24] MEDS ORDERED: SODIUM CHLORIDE 0.9% 500 ML IV SCH (18:45)
--- NOTE | 2021-03-24 18:54 | Emergency Department Note ---
Impression & Plan Atrial fibrillation with rapid ventricular response, ARGUELLO (dyspnea on exertion) ED Provider Note NAME: MARIETTA DELGADO AGE: 76 SEX: M : 1945 ARRIVES VIA: Walk-In INFORMANT: Patient, ED PROVIDER(S): Martin Vickers DO CHIEF COMPLAINT: Palpitations HPI: The patient is a 76-year-old male who presented to the emergency department for an evaluation of palpitations. The patient states that he had a very stressful week at work last week. He states that he has been using his usual outpatient medications of as prescribed. He states he started noticing that he was having palpitations. He states at rest he has very minimal symptoms when he exerts himself he becomes very short of breath. He notices that the palpitations are worsened with exertion as well. He denies having any chest pain. He is not noticed any lower extremity swelling. He does not have any nausea vomiting. He said no fever. The patient noticed using his apple watch that he was having tachycardia. He states is been constant ever since the [place]. He went to see his family doctor today and had an EKG. He was then sent directly to the emergency department for further evaluation. He states he has a history of coronary artery bypass grafting and at that time did have an episode of palpitations. He states at that time he thinks it was atrial fibrillation but he is not sure. The patient otherwise has had no exposure to COVID-19. ROS: See above HPI for pertinent positives & negatives. A total of 10 systems reviewed and were otherwise negative. PAST MEDICAL HISTORY: See Below PAST SURGICAL HISTORY: See Below FAMILY HISTORY: See Below SOCIAL HISTORY: See Below HOME MEDICATIONS: See Below ALLERGIES: See Below VITALS: See Below PHYSICAL EXAMINATION: GENERAL: Patient is awake alert in no acute distress patient is resting comfortably and showing no signs of anxiety EYES: The conjunctivae are clear. The pupils are round and reactive. EARS, NOSE, MOUTH AND THROAT: The nose is without any evidence of any deformity. NECK: The neck is nontender and supple. RESPIRATORY: Normal respiratory effort is noted there is no evidence of wheezing rhonchi or rales CARDIOVASCULAR: Tachycardic and regular heart sounds were noted to auscultation. There is no definite murmur. GASTROINTESTINAL: The abdomen is soft. Abdomen is nontender. MUSCULOSKELETAL/EXTREMITIES: There is no evidence of gross deformity full range of motion is noted in the hips and shoulders. SKIN: There is no obvious evidence of any rash. There are no petechiae, pallor or cyanosis noted. NEUROLOGIC: Patient is awake alert and oriented x3. MEDICAL DECISION MAKING: The patient is a 76-year-old male who presented to the emergency department for an evaluation of palpitations. The patient was noticing increased heart rate over the course of the weekend. He was notified by his apple watch that he was having tachycardia. The patient went to see his primary care physician and was sent to the emergency department because of an abnormal EKG. In the emergency department he was found to have signs of A. fib with RVR. He was treated with IV fluids IV thiamine and IV Cardizem. He was reevaluated multiple times. I discussed the patient's laboratory and radiographic studies with him. Given his findings I discussed his case with the on-call [facility] hospitalist group. The patient does have a history of mitral valve replacement as well as atrial fibrillation in the past. He states he is not normally in atrial fibrillation. He does not take oral anticoagulation. The patient is to be evaluated by the hospitalist group for possible inpatient management. Is pulse had improved s ignificantly and so did his symptoms after the Cardizem. Triage Nursing notes reviewed. Prior medical records reviewed Vital Signs: reviewed and remarkable for tachycardia. Differential diagnosis: Premature contractions, electrolyte abnormality, cardiac dysrhythmia, thyroid dysfunction, pulmonary embolism, infection, gastrointestinal, as well as other pathologies. ER treatment provided: See below Diagnostics interpreted by me: ECG: EKG was obtained in the emergency department. My interpretation is atrial fibrillation at 120 bpm. There were no PVCs. High lateral ST segment abnormalities were noted. There are also low lateral ST segment abnormalities noted. This was compared to a tracing from July [id number]. Sinus rhythm has been replaced with atrial fibrillation. A second EKG was obtained in the emergency department. My interpretation is atrial flutter at 74 bpm. No PVCs were noted. This was compared to the earlier tracing. The rate has improved however the atrial flutter persist. Cardiac Monitoring: An order was placed for continuous cardiac monitoring. The monitor shows a rate of 78 bpm with atrial fibrillation rhythm. Laboratory studies: As stated above and show below. Imaging studies: See below Consultation(s): I discussed this case with Dr. Bowser who is on-call for the [facility] hospitalist group. He will evaluate the patient in the emergency department. ED COURSE: Procedures: none PDMP:reviewed and no issues Critical Care: I have personally spent greater than 45 minutes of critical care time in the direct management of this patient. This includes bedside care, interpretation of diagnostic studies, and testing, discussion with consultants, patient, and family members, and other required patient management activities. This 45 minutes is in excess of all separately billable procedures. Past Med/Surg History Medical History Acid reflux CAD (coronary artery disease) Colitis Kidney stones Myocardial Infarction Secondary hyperparathyroidism Spontaneous pneumothorax Stage III chronic kidney disease Surgical History H/O heart bypass surgery 02/2010, daley to LAD, saphenous vein graft to om 1 and om 2, saphenous vein graft to diagonal, saphenous vein graft to right coronary artery H/O mitral valve repair 02/2010 History of cholecystectomy (~2017) History of ERCP (~2017) History of tonsillectomy Family History Father Myocardial infarction Stroke Coronary heart disease Depression Mother Diverticulosis Stroke Glaucoma Other Coronary arteriosclerosis Stroke syndrome Denies family history of Ovarian cancer Prostate cancer Breast cancer Colorectal cancer Social History Smoking Status: Former smoker Second Hand Exposure: No; Hx Alcohol Use: Yes (had a beer at lunch and a cocktail at night daily) Alcohol type: beer and hard liquor Alcohol Intake Frequency: 4 or More x per/Week Alcohol Intake Frequency Comment: daily - 1 beer and 1 cocktail Hx Substance Use: Yes (uses percocet when has kidney stones) Prescribed Medications: Opiates Preferred Language: Nigerian Communication Ability: Effective Visual Impairment: No Limitations Hearing Ability: Use of Hearing Aid 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 Required: No Beliefs That Will Affect Care: None marital status: Single Current Living Situation: Alone Current Living Situation Comment: has a cat current occupational status: retired Feels Safe at Home: Yes Childhood Exposure to Second-Hand Smoke: Yes Dental Care, Regularly: Yes Physical Activity Frequency: 1-2 Times per Week Seatbelt Use: always Sunscreen Use: Yes Assistive Devices: None, Glasses, Hearing Aid - Left and Hearing Aid - Right Allergies Allergies Allergy/AdvReac Type Severity Reaction Status Date / Time No Known Drug Allergies Allergy Unknown Rash Verified 03/24/21 16:25 SUNLIGHT Allergy Unknown UNKNOWN Uncoded 03/24/21 16:25 Home Meds Home Medications Medication Instructions Recorded Confirmed aspirin 81 mg tablet,delayed 81 mg PO DAILY tab 05/19/19 03/24/21 release pantoprazole 40 mg tablet,delayed 40 mg PO DAILY 03/24/21 03/24/21 release Previous Rx's Medication Instructions Recorded metoprolol succinate 25 mg 25 mg PO DAILY #90 tab 06/12/20 tablet,extended release 24 hr atorvastatin 40 mg tablet 40 mg PO DAILY #90 tab 09/10/20 losartan 25 mg tablet 25 mg PO DAILY #90 tab 10/02/20 Results & Data (ED) Vital Signs Vital Signs - 24 hr 03/24/21 18:20 03/24/21 19:01 03/24/21 19:02 Temperature 36.8 C Temperature Source Temporal Artery Scan Oral Pulse Rate 130 H Pulse Rate [Bilateral Apical] Pulse Rate from SpO2 Sensor Pulse Rhythm Regular Pulse Strength Normal Respiratory Rate 18 Respiratory Effort / Characteristics Non-Labored Spontaneous Respiratory Depth Normal Respiratory Pattern Regular Blood Pressure 133/90 Blood Pressure [Left Arm] Blood Pressure Mean 104 Blood Pressure Mean [Left Arm] Pulse Oximetry 96 Oxygen Delivery Method Room Air Room Air Room Air Sepsis Recent Fever Within 48 Hours No Sepsis New/Unexplained Change in Mental Status No Sepsis Action Taken by Nursing No Action Required 03/24/21 19:12 03/24/21 19:40 03/24/21 19:47 Temperature Temperature Source Pulse Rate Pulse Rate [Bilateral Apical] 128 H 122 H 75 Pulse Rate from SpO2 Sensor Pulse Rhythm Pulse Strength Respiratory Rate 20 20 Respiratory Effort / Characteristics Respiratory Depth Respiratory Pattern Blood Pressure Blood Pressure [Left Arm] 113/78 108/77 Blood Pressure Mean Blood Pressure Mean [Left Arm] 89 87 Pulse Oximetry 95 98 Oxygen Delivery Method Room Air Sepsis Recent Fever Within 48 Hours Sepsis New/Unexplained Change in Mental Status Sepsis Action Taken by Nursing 03/24/21 19:53 03/24/21 20:49 03/24/21 21:26 Temperature Temperature Source Pulse Rate Pulse Rate [Bilateral Apical] 64 63 63 Pulse Rate from SpO2 Sensor Pulse Rhythm Pulse Strength Respiratory Rate 20 20 20 Respiratory Effort / Characteristics Respiratory Depth Respiratory Pattern Blood Pressure Blood Pressure [Left Arm] 108/60 113/66 112/68 Blood Pressure Mean Blood Pressure Mean [Left Arm] 76 81 82 Pulse Oximetry 96 97 96 Oxygen Delivery Method Room Air Room Air Sepsis Recent Fever Within 48 Hours Sepsis New/Unexplained Change in Mental Status Sepsis Action Taken by Nursing 03/24/21 22:09 03/24/21 22:23 03/24/21 22:46 Temperature Temperature Source Pulse Rate Pulse Rate [Bilateral Apical] 94 H 124 H 63 Pulse Rate from SpO2 Sensor Pulse Rhythm Pulse Strength Respiratory Rate 20 20 Respiratory Effort / Characteristics Respiratory Depth Respiratory Pattern Blood Pressure Blood Pressure [Left Arm] 131/74 131/74 Blood Pressure Mean Blood Pressure Mean [Left Arm] 93 93 Pulse Oximetry 96 97 Oxygen Delivery Method Room Air Room Air Sepsis Recent Fever Within 48 Hours Sepsis New/Unexplained Change in Mental Status Sepsis Action Taken by Nursing 03/24/21 23:00 03/24/21 23:30 Temperature Temperature Source Pulse Rate 64 85 Pulse Rate [Bilateral Apical] Pulse Rate from SpO2 Sensor 64 77 Pulse Rhythm Pulse Strength Respiratory Rate 23 20 Respiratory Effort / Characteristics Respiratory Depth Respiratory Pattern Blood Pressure 110/75 131/79 Blood Pressure [Left Arm] Blood Pressure Mean 86 96 Blood Pressure Mean [Left Arm] Pulse Oximetry 94 96 Oxygen Delivery Method Sepsis Recent Fever Within 48 Hours Sepsis New/Unexplained Change in Mental Status Sepsis Action Taken by Snf Medications Current Medication List: was personally reviewed by me Laboratory Data Attestation: I reviewed the patient's lab results. Result diagrams: 03/24/21 18:50 03/24/21 18:50 Lab Results 03/24/21 03/24/21 03/24/21 Range/Units 18:50 18:50 18:50 WBC 6.43 (4.8-10.8) K/uL RBC 4.29 L (4.7-6.1) M/uL Hgb 13.8 L (14.0-18.0) g/dL Hct 40.7 L (42-52) % MCV 94.9 (80-100) fL MCH 32.2 (25-34) pg MCHC 33.9 (32-36) g/dL RDW Std Deviation 47.5 H (36.4-46.3) fL RDW Coeff of Rocio 13.8 (11.5-14.5) % Plt Count 205 (130-400) K/uL MPV 10.5 H (7.4-10.4) fL Immature Gran % (Auto) 0.0 % Neut % (Auto) 61.4 % Lymph % (Auto) 26.3 % [place] % (Auto) 8.2 % Eos % (Auto) 3.6 % Baso % (Auto) 0.5 % Neut # (Auto) 3.95 (1.4-6.5) K/uL Lymph # (Auto) 1.69 (1.2-3.4) K/uL [place] # (Auto) 0.53 (0.11-0.59) K/uL Eos # (Auto) 0.23 (0-0.5) K/uL Baso # (Auto) 0.03 (0-0.2) K/uL Immature Gran # (Auto) 0.00 (0.00-0.02) K/uL PT 10.1 (9.0-12.0) Seconds INR 1.0 (0.9-1.1) APTT 24.7 (21.0-31.0) Seconds PTT Ratio 0.9 Sodium 143 (136-145) mmol/L Potassium 3.9 (3.5-5.1) mmol/L Chloride 111 H (98-107) mmol/L Carbon Dioxide 26 (21-32) mmol/L Anion Gap 6.0 (3-11) BUN 15 (7-18) mg/dl Creatinine 1.35 (0.6-1.4) mg/dl Est Cr Clr Drug Dosing 51.8 ml/min Est GFR ( Amer) 58.3 ml/min Est GFR (Non-Af Amer) 50.3 ml/min BUN/Creatinine Ratio 10.7 (10-20) Glucose 95 (70-99) mg/dl Calcium 9.3 (8.5-10.1) mg/dl Magnesium 2.2 (1.8-2.4) mg/dl Total Bilirubin 0.6 (0.2-1) mg/dl AST 37 (15-37) U/L ALT 64 (12-78) U/L Alkaline Phosphatase 70 (45-117) U/L Troponin I 0.020 (0-0.045) ng/ml Total Protein 8.0 (6.4-8.2) gm/dl Albumin 4.2 (3.4-5.0) gm/dl Globulin 3.8 (2.5-4.0) gm/dl Albumin/Globulin Ratio 1.1 (0.9-2) TSH 2.160 (0.300-4.500) uIu/ml COVID-19 Eval Order SARS-CoV-2 (PCR) (Negative) 03/24/21 03/24/21 Range/Units 19:18 19:18 WBC (4.8-10.8) K/uL RBC (4.7-6.1) M/uL Hgb (14.0-18.0) g/dL Hct (42-52) % MCV (80-100) fL MCH (25-34) pg MCHC (32-36) g/dL RDW Std Deviation (36.4-46.3) fL RDW Coeff of Rocio (11.5-14.5) % Plt Count (130-400) K/uL MPV (7.4-10.4) fL Immature Gran % (Auto) % Neut % (Auto) % Lymph % (Auto) % [place] % (Auto) % Eos % (Auto) % Baso % (Auto) % Neut # (Auto) (1.4-6.5) K/uL Lymph # (Auto) (1.2-3.4) K/uL [place] # (Auto) (0.11-0.59) K/uL Eos # (Auto) (0-0.5) K/uL Baso # (Auto) (0-0.2) K/uL Immature Gran # (Auto) (0.00-0.02) K/uL PT (9.0-12.0) Seconds INR (0.9-1.1) APTT (21.0-31.0) Seconds PTT Ratio Sodium (136-145) mmol/L Potassium (3.5-5.1) mmol/L Chloride (98-107) mmol/L Carbon Dioxide (21-32) mmol/L Anion Gap (3-11) BUN (7-18) mg/dl Creatinine (0.6-1.4) mg/dl Est Cr Clr Drug Dosing ml/min Est GFR ( Amer) ml/min Est GFR (Non-Af Amer) ml/min BUN/Creatinine Ratio (10-20) Glucose (70-99) mg/dl Calcium (8.5-10.1) mg/dl Magnesium (1.8-2.4) mg/dl Total Bilirubin (0.2-1) mg/dl AST (15-37) U/L ALT (12-78) U/L Alkaline Phosphatase (45-117) U/L Troponin I (0-0.045) ng/ml Total Protein (6.4-8.2) gm/dl Albumin (3.4-5.0) gm/dl Globulin (2.5-4.0) gm/dl Albumin/Globulin Ratio (0.9-2) TSH (0.300-4.500) uIu/ml COVID-19 Eval Order Covid19 at [facility] SARS-CoV-2 (PCR) NEGATIVE (Negative) Administered Medications Discontinued Medications Diltiazem HCl (Diltiazem Hcl 5 Mg/Ml 5 Ml Vial) 10 mg IV NOW STA Stop: 03/24/21 18:44 Last Admin: 03/24/21 18:59 Dose: 10 mg Documented by: [id number] Cosigned by: [id number] Diltiazem HCl (Diltiazem Hcl 5 Mg/Ml 5 Ml Vial) 10 mg IV NOW STA Stop: 03/24/21 19:31 Last Admin: 03/24/21 19:38 Dose: 10 mg Documented by: [id number] Cosigned by: [id number] Enoxaparin Sodium (Enoxaparin 100 Mg/1ml Syr) 90 mg SQ ONE STA Stop: 03/24/21 22:02 Last Admin: 03/24/21 22:08 Dose: 90 mg Documented by: [id number] Sodium Chloride (Nss) 500 mls @ 999 mls/hr IV .Q31M GLORIA Stop: 03/24/21 19:15 Last Infusion: 03/24/21 19:37 Dose: 0 mls/hr Documented by: [id number] Admin: 03/24/21 18:55 Dose: 999 mls/hr Documented by: [id number] Thiamine HCl 200 mg/ Sodium (Chloride) 52 mls @ 208 mls/hr IV NOW STA Stop: 03/24/21 18:57 Last Infusion: 03/24/21 19:37 Dose: 0 mls/hr Documented by: [id number] Admin: 03/24/21 19:11 Dose: 208 mls/hr Documented by: [id number] Sodium Chloride (Nss) 500 mls @ 999 mls/hr IV .Q31M ONE Stop: 03/24/21 20:14 Last Infusion: 03/24/21 20:27 Dose: 0 mls/hr Documented by: [id number] Admin: 03/24/21 19:52 Dose: 999 mls/hr Documented by: [id number] Imaging Data Radiologist's Impression: Chest X-Ray 03/24/21 18:33 XR chest 1V portable HISTORY: 76 years-old Male weakness acute weakness COMPARISON: Chest radiograph 02/14/2017 TECHNIQUE: Portable AP view of the chest FINDINGS: Cardiac silhouette is mildly enlarged. Prior median sternotomy with cardiac valvular prosthesis. No pneumothorax, pleural effusion, airspace consolidation or overt pulmonary edema. Degenerative changes of the shoulders and spine. IMPRESSION: No acute process ACT 112: Negative or not required by law. The above report was generated using voice recognition software. It may contain grammatical, syntax or spelling errors. Electronically signed by: Matty Perez M.D. 03/24/2021 7:12 PM Discharge Plan Visit Data Chief Complaint: Cardiac Assessment Stated Complaint: RAPID HEART BEAT, REFERRED BY DOCTOR ED Provider: Martin Vickers Discharge Problem: Atrial fibrillation with rapid ventricular response, ARGUELLO (dyspnea on exertion) Patient Disposition: Admitted As Inpatient Condition: Good Forms Stand Alone Forms: [facility] [place] [employer] Prescriptions Prescriptions: No Action metoprolol succinate 25 mg tablet extended release 24 hr 25 mg PO DAILY Qty: 90 RF: 3 atorvastatin 40 mg tablet 40 mg PO DAILY Qty: 90 RF: 3 losartan 25 mg tablet 25 mg PO DAILY Qty: 90 RF: 3 aspirin 81 mg tablet,delayed release (DR/EC) 81 mg PO DAILY RF: 0 pantoprazole 40 mg tablet,delayed release (DR/EC) 40 mg PO DAILY RF: 0 Referrals Referrals: Milena Garcia MD [Primary Care Provider] -
[2021-03-24 19:05] LABS: Basophils # (auto) 0.03 K/uL (0-0.2); Basophils % (auto) 0.5 %; Eosinophils # (auto) 0.23 K/uL (0-0.5); Eosinophils % (auto) 3.6 %; Hematocrit (blood only) 40.7 % (42-52); Hemoglobin 13.8 g/dL (14.0-18.0); Lymphocytes # (auto) 1.69 K/uL (1.2-3.4); Lymphocytes % (auto) 26.3 %; Mean Corpuscular Hemoglobin 32.2 pg (25-34); Mean Corpuscular Hgb Conc 33.9 g/dL (32-36); Mean Corpuscular Volume 94.9 fL (80-100); Mean Platelet Volume 10.5 fL (7.4-10.4); Monocytes # (auto) 0.53 K/uL (0.11-0.59); Monocytes % (auto) 8.2 %; Neutrophils # (auto) 3.95 K/uL (1.4-6.5); Neutrophils % (auto) 61.4 %; Platelet Count 205 K/uL (130-400); RDW Coefficient of Variation 13.8 % (11.5-14.5); RDW Standard Deviation 47.5 fL (36.4-46.3); Red Blood Count 4.29 M/uL (4.7-6.1); White Blood Count 6.43 K/uL (4.8-10.8)
--- NOTE | 2021-03-24 19:14 | XRay Report ---
XR chest 1V portable HISTORY: 76 years-old Male weakness acute weakness COMPARISON: Chest radiograph 02/14/2017 TECHNIQUE: Portable AP view of the chest FINDINGS: Cardiac silhouette is mildly enlarged. Prior median sternotomy with cardiac valvular prosthesis. No p neumothorax, pleural effusion, airspace consolidation or overt pulmonary edema. Degenerative changes of the shoulders and spine. IMPRESSION: No acute process ACT 112: Negative or not required by law. The above report was generated using voice recognition software. It may contain grammatical, syntax o r spelling errors. Electronically signed by: Matty Perez M.D. 03/24/2021 7:12 PM
[2021-03-24 19:16] LABS: Partial Thromboplastin Ratio 0.9; Partial Thromboplastin Time 24.7 Seconds (21.0-31.0); Prothrombin Time 10.1 Seconds (9.0-12.0)
[2021-03-24 19:26] LABS: Albumin Level 4.2 gm/dl (3.4-5.0); BUN Creatinine Ratio 10.7 (10-20); Calcium 9.3 mg/dl (8.5-10.1); Creatinine Clr Calc Pharmacy 51.8 ml/min; Est GFR (African American) 58.3 ml/min; Est GFR (Non-African American) 50.3 ml/min; Magnesium 2.2 mg/dl (1.8-2.4); Potassium 3.9 mmol/L (3.5-5.1)
[2021-03-24 19:37] LABS: Albumin Globulin Ratio 1.1 (0.9-2); Bilirubin,Total 0.6 mg/dl (0.2-1); Globulin 3.8 gm/dl (2.5-4.0); Thyroid Stimulating Hormone 2.16 uIu/ml (0.300-4.500); Troponin I 0.02 ng/ml (0-0.045)
[2021-03-24] MEDS ORDERED: SODIUM CHLORIDE 0.9% 500 ML IV ONE (19:44)
[2021-03-24] MEDS ORDERED: ENOXAPARIN 100 MG/1ML SYR SQ STA (22:01)
--- NOTE | 2021-03-24 22:24 | History & Physical Report ---
Date of Service March 24, 2021 Assessment & Plan (1) Afib: Plan: Afib/Aflutter- last known time in Afib 2009 - CHADVASC2 - 2, HASBLED- 2 - > 48 hours in rhythm - Rate controlled following Diltiazem - Patient up to use restroom HR back to 120s- metoprolol 5mg IV - Lovenox 90 mg Subq q12 first dose now - ECHO in morning - BNP in morning - Troponin 0.020 trend - Mag >2, K ~4.0 - Likely need increase in Metoprolol Succinate - Cardiology consulted for rhythm vs. rate control strategies and anticoagulation recs (2) S/P CABG x 3: Plan: Continue ASA Continue statin Continue BB Continue THOMAS (3) HTN (hypertension): Plan: As above well controlled goal <140 (4) CAD (coronary artery disease): Plan: As above [place] vessel - ECHO in morning (5) Acid reflux: Plan: Continue pantoprazole on acute needs (6) BPH with obstruction/lower urinary tract symptoms: Plan: No acute needs, patient denies acute symptoms History of Present Illness Primary Care Provider: Milena Garcia MD 76 YOM with past medical history of: CAD, CABG (2009), Mitral valve Repair (2010), left atrial appendage ligation (2009), abdominal pain, Colitis, GERD, Hyperparathyroidism secondary, CKD III, gallstone pancreatitis. Patient comes to the emergency department today after evaluation with his PCP for increased HR. The patient reports that on Wednesday his watch alerted that his heart rate was going fast. He noted the highest it went was 128 and lowest it went was 110. He did notice that today he had to stop and take a break secondary to dyspnea after carrying a load of laundry upstairs, but other than that he denies any other symptoms of chest pain, palpitations, lightheadedness, or shortness of breath at rest. 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 He went to his PCP today and was evaluated with an ECG that was HR in the 130s and regular, in the EMD he received 2 doses of Diltiazem 10 mg IV with decrease in HR to 120's likely atrial fibrillation and following the second dose ECG slowed to 74 BPM with afib/aflutter. Patient will be admitted started on Lovenox for anticoagulation as he has been in this rhythm possibly >48 hours, ECHO, cardiology consult for rhythm/rate management and residential anticoagulation management. Patient has a history of atrial fibrillation following his cardiac surgery in 2009, he has no other re-occurence of this. He normally has 2 beers a day. He has never had any signs of withdraw or difficulty going without a drink Allergies Allergy/AdvReac Type Severity Reaction Status Date / Time No Known Drug Allergies Allergy Unknown Rash Verified 03/24/21 16:25 SUNLIGHT Allergy Unknown UNKNOWN Uncoded 03/24/21 16:25 Home Medications Medication Instructions Recorded Confirmed Type metoprolol succinate 25 mg 25 mg PO DAILY #90 tab 06/12/20 03/24/21 Rx tablet,extended release 24 hr atorvastatin 40 mg tablet 40 mg PO DAILY #90 tab 09/10/20 03/24/21 Rx losartan 25 mg tablet 25 mg PO DAILY #90 tab 10/02/20 03/24/21 Rx pantoprazole 40 mg tablet,delayed 40 mg PO DAILY 03/24/21 03/24/21 History release apixaban 5 mg tablet (Eliquis) 5 mg PO BID #60 tab 03/26/21 Rx Past Med/Surg History Medical History Acid reflux CAD (coronary artery disease) Colitis Kidney stones Myocardial Infarction Secondary hyperparathyroidism Spontaneous pneumothorax Stage III chronic kidney disease Surgical History H/O heart bypass surgery 02/2010, daley to LAD, saphenous vein graft to om 1 and om 2, saphenous vein graft to diagonal, saphenous vein graft to right coronary artery H/O mitral valve repair 02/2010 History of cholecystectomy (~2017) History of ERCP (~2018) History of tonsillectomy Family History Father Myocardial infarction Stroke Coronary heart disease Depression Mother Diverticulosis Stroke Glaucoma Other Coronary arteriosclerosis Stroke syndrome Denies family history of Ovarian cancer Prostate cancer Breast cancer Colorectal cancer Social History Smoking Status: Former smoker Second Hand Exposure: No; Hx Alcohol Use: Yes Alcohol type: beer Alcohol Intake Frequency: 4 or More x per/Week Alcohol Intake Frequency Comment: daily - 1 beer and 1 cocktail Hx Substance Use: No Preferred Language: [place]an Communication Ability: Effective Visual Impairment: No Limitations Hearing Ability: Use of Hearing Aid Try On Baster Required: No Beliefs That Will Affect Care: None marital status: Single Current Living Situation: Alone Current Living Situation Comment: has a cat current occupational status: retired Feels Safe at Home: Yes Childhood Exposure to Second-Hand Smoke: Yes Dental Care, Regularly: Yes Physical Activity Frequency: 1-2 Times per Week Seatbelt Use: always Sunscreen Use: Yes Assistive Devices: Hearing Aid - Bilateral Review of Systems Review of Systems: REVIEW OF SYSTEMS: Constitutional: No fever, sweats or chills Eyes: No diplopia, no worsening or blurred vision ENT: normal hearing, no trouble swallowing Respiratory: No cough, sputum, dyspnea at rest or on exertion Cardiovascular: (+) chronic orthostais, No chest pain, tightness or palpitations Abdomen: No pain, nausea, vomiting, diarrhea or constipation Musculoskeletal: No joint pain, calf pain, swelling Neurologic: No weakness, numbness/tingling, or balance problems Psychiatric: No anxiety or depression Skin: No rash or itch Physical Exam Physical Exam: PHYSICAL EXAM: General: awake, alert, no apparent distress Head: Normocephalic, atraumatic ENT: PERRL, EOMI, no pharyngeal exudate, mucous membranes moist Neuro: AAO x 3, speech clear and appropriate, strength intact bilaterally 5/5, sensation intact and equal all extremities and dermatomes, no pronator drift Chest: equal rise and fall of the chest, no accessory muscle use, no heaves or thrills, Clear to auscultation, on room air, Cardiac: Irregular rate and rhythm, telemetry reviewed- regularly irregular, skin warm dry, cap refill <3 seconds, peripheral pulses +2 no JVD, no murmur, no edema GI: NABS x 4 quadrants, soft, nontender to palpation, no rebound, guarding or tenderness : Spontaneously voiding, no pain, no CVA tenderness, Extremities: Normal inspection, no peripheral edema or erythema, calfs nontender to palpation Psych: Normal mood and affect Skin: no rash or erythema Results & Data Results & Data ([facility]) Vital Signs (Past 12 Hours) Vital Signs Temp Pulse Pulse Resp BP BP Pulse Ox 03/24/21 21:26 63 20 112/68 96 03/24/21 20:49 63 20 113/66 97 03/24/21 19:53 64 20 108/60 96 03/24/21 19:47 75 03/24/21 19:40 122 H 20 108/77 98 03/24/21 19:12 128 H 20 113/78 95 03/24/21 18:20 36.8 C 130 H 18 133/90 96 Laboratory Results Abnormal lab results 03/24/21 03/24/21 Range/Units 18:50 18:50 RBC 4.29 L (4.7-6.1) M/uL Hgb 13.8 L (14.0-18.0) g/dL Hct 40.7 L (42-52) % RDW Std Deviation 47.5 H (36.4-46.3) fL MPV 10.5 H (7.4-10.4) fL Chloride 111 H (98-107) mmol/L Diagnostic Findings Chest X-Ray 03/24/21 18:33 XR chest 1V portable HISTORY: 76 years-old Male weakness acute weakness COMPARISON: Chest radiograph 02/14/2017 TECHNIQUE: Portable AP view of the chest FINDINGS: Cardiac silhouette is mildly enlarged. Prior median sternotomy with cardiac valvular prosthesis. No pneumothorax, pleural effusion, airspace consolidation or overt pulmonary edema. Degenerative changes of the shoulders and spine. IMPRESSION: No acute process ACT 112: Negative or not required by law. The above report was generated using voice recognition software. It may contain grammatical, syntax or spelling errors. Electronically signed by: Matty Perez M.D. 03/24/2021 7:12 PM Medications Administered Discontinued Medications Diltiazem HCl (Diltiazem Hcl 5 Mg/Ml 5 Ml Vial) 10 mg IV NOW STA Stop: 03/24/21 18:44 Last Admin: 03/24/21 18:59 Dose: 10 mg Documented by: [id number] Cosigned by: [id number] Diltiazem HCl (Diltiazem Hcl 5 Mg/Ml 5 Ml Vial) 10 mg IV NOW STA Stop: 03/24/21 19:31 Last Admin: 03/24/21 19:38 Dose: 10 mg Documented by: [id number] Cosigned by: [id number] Enoxaparin Sodium (Enoxaparin 100 Mg/1ml Syr) 90 mg SQ ONE STA Stop: 03/24/21 22:02 Last Admin: 03/24/21 22:08 Dose: 90 mg Documented by: [id number] Sodium Chloride (Nss) 500 mls @ 999 mls/hr IV .Q31M GLORIA Stop: 03/24/21 19:15 Last Infusion: 03/24/21 19:37 Dose: 0 mls/hr Documented by: [id number] Admin: 03/24/21 18:55 Dose: 999 mls/hr Documented by: [id number] Thiamine HCl 200 mg/ Sodium (Chloride) 52 mls @ 208 mls/hr IV NOW STA Stop: 03/24/21 18:57 Last Infusion: 03/24/21 19:37 Dose: 0 mls/hr Documented by: [id number] Admin: 03/24/21 19:11 Dose: 208 mls/hr Documented by: [id number] Sodium Chloride (Nss) 500 mls @ 999 mls/hr IV .Q31M ONE Stop: 03/24/21 20:14 Last Infusion: 03/24/21 20:27 Dose: 0 mls/hr Documented by: [id number] Admin: 03/24/21 19:52 Dose: 999 mls/hr Documented by: [id number] Home Medications aspirin 81 mg tablet,delayed release 81 mg PO DAILY tab 05/19/19 [History Confirmed 03/24/21] metoprolol succinate 25 mg tablet,extended release 24 hr 25 mg PO DAILY #90 tab 06/12/20 [Rx Confirmed 03/24/21] atorvastatin 40 mg tablet 40 mg PO DAILY #90 tab 09/10/20 [Rx Confirmed 03/24/21] losartan 25 mg tablet 25 mg PO DAILY #90 tab 10/02/20 [Rx Confirmed 03/24/21] pantoprazole 40 mg tablet,delayed release 40 mg PO DAILY 03/24/21 [History Confirmed 03/24/21] Active Medications Metoprolol Tartrate (Metoprolol Tartrate 1 Mg/Ml Vial) 10 mg IV NOW STA Stop: 03/24/21 22:28 ECG Additional Comments: Atrial fibrillation Left axis deviation Non-specific intra- ventricular conduction block Nonspecific T wave abnormality Abnormal ECG When c ompared with ECG of 26-LACEY-2021 18:26, (unconfirmed) Atrial fibrillation has replaced Junctional rhythm Vent. rate has decreased BY 54 BPM Nonspecific T wave abnormality has replaced inverted T waves in Lateral leads Code Status & VTE Plan Code Status CODE: FULL VTE: SCD's, weight based Lovenox Supervising Physician Co-Signing Physician Notes Attending addendum: I have physically seen this patient, have supervised the ISABELLA's activities, and agree with the H&P unless as otherwise noted. Assessment and Plan: Atrial fibrillation/flutter/status post CABG- The patient will be admitted to telemetry for serial cardiac enzymes, serial EKG's, cardiac rhythm monitoring and a 2-D echocardiogram with Dopplers. [id number] 2, HASBLED 2 Continue diltiazem Metoprolol 5 mg IV every 4 hours as needed heart rate greater than 120 Lovenox 90 mg subcu every 12 hours Target potassium greater than or equal to 4, magnesium greater than or equal to 2 Continue aspirin, losartan Consult cardiology Remaining orders and notations as noted PG Care Time/CCT Total # of Minutes Spent Total Time Spent with Patient: Total time spent is greater than 50% in coordination of care (as documented) at patient's floor/unit and/or counseling patient: Coding Level of Care Code 07032 Initial Inpt Care Lvl 3 Diagnoses Afib I48.91 Atrial fibrillation type: unspecified S/P CABG x 3 Z95.1 HTN (hypertension) I10 Hypertension type: primary hypertension Acid reflux K21.9 Esophagitis presence: esophagitis presence not specified CAD (coronary artery disease) I25.10 Associated angina: without angina Coronary Disease-Associated Artery/Lesion type: [place] artery [place] vs. transplanted heart: [place] heart BPH with obstruction/lower urinary tract symptoms N40.1; N13.8 (1) CAD (coronary artery disease) Associated angina: without angina Coronary Disease-Associated Artery/Lesion type: [place] artery [place] vs. transplanted heart: [place] heart Qualified Code(s): I25.10 - Atherosclerotic heart disease of [place] coronary artery without angina pectoris (2) Afib Atrial fibrillation type: unspecified Qualified Code(s): I48.91 - Unspecified atrial fibrillation (3) Acid reflux Esophagitis presence: esophagitis presence not specified Qualified Code(s): K21.9 - Gastro-esophageal reflux disease without esophagitis (4) HTN (hypertension) Hypertension type: primary hypertension Qualified Code(s): I10 - Essential (primary) hypertension
[2021-03-24] MEDS ORDERED: METOPROLOL TARTRATE 1 MG/ML VIAL IV STA (22:27)
[2021-03-25] MEDS ORDERED: LACTATED RINGER'S 1,000 ML IV ONE
[2021-03-25] MEDS ORDERED: ONDANSETRON INJ 2 MG/ML 2 ML VIAL IV PRN
[2021-03-25] MEDS: METOPROLOL TARTRATE 1 MG/ML VIAL IV PRN ×2 (00:20→10:39)
[2021-03-25] MEDS: diphenhydrAMINE Capsule 25 MG CAP PO PRN ×2 (01:09→21:52)
[2021-03-25 04:57] LABS: Appearance Urine Clear (Clear); Bilirubin Urine Negative (Negative); Blood Urine Negative (Negative); Color Urine Dark Yellow; Glucose Urine UA Negative (Negative); Ketones Urine Trace (Negative); Leukocyte Esterase Urine Negative (Negative); Nitrite Urine Negative (Negative); Protein Urine Negative (Negative); Specific Gravity Urine 1.023 (1.000-1.030); Urobilinogen Urine Negative (Negative)
--- NOTE | 2021-03-25 08:25 | Electrocardiogram Report ---
Test Reason : Blood Pressure : / mmHG Vent. Rate : 128 BPM Atrial Rate : 129 BPM P-R Int : 128 ms QRS Dur : 124 ms QT Int : 354 ms P-R-T Axes : -84 -29 108 degrees QTc Int : 516 ms Probable Sinus tachycardia Non-specific intra-ventricular conduction delay Abnormal ECG When compared with ECG of 13-JUL-2018 10:00, Vent. rate has increased BY 66 BPM Confirmed by Theo Peguero ([id number]) on 03/25/2021 8:25:22 AM Referred By: Milena Garcia Confirmed By:Theo Peguero
[2021-03-25 08:28] LABS: Basophils # (auto) 0.03 K/uL (0-0.2); Basophils % (auto) 0.6 %; Eosinophils # (auto) 0.28 K/uL (0-0.5); Eosinophils % (auto) 5.8 %; Hematocrit (blood only) 34.7 % (42-52); Hemoglobin 11.7 g/dL (14.0-18.0); Immature Granulocytes # (auto) 0.01 K/uL (0.00-0.02); Immature Granulocytes % (auto) 0.2 %; Lymphocytes # (auto) 1.51 K/uL (1.2-3.4); Lymphocytes % (auto) 31.1 %; Mean Corpuscular Hemoglobin 32.1 pg (25-34); Mean Corpuscular Hgb Conc 33.7 g/dL (32-36); Mean Corpuscular Volume 95.3 fL (80-100); Mean Platelet Volume 10.3 fL (7.4-10.4); Monocytes # (auto) 0.37 K/uL (0.11-0.59); Monocytes % (auto) 7.6 %; Neutrophils # (auto) 2.65 K/uL (1.4-6.5); Neutrophils % (auto) 54.7 %; Platelet Count 150 K/uL (130-400); RDW Coefficient of Variation 13.7 % (11.5-14.5); RDW Standard Deviation 47.8 fL (36.4-46.3); Red Blood Count 3.64 M/uL (4.7-6.1); White Blood Count 4.85 K/uL (4.8-10.8)
--- NOTE | 2021-03-25 08:39 | Electrocardiogram Report ---
Test Reason : Blood Pressure : / mmHG Vent. Rate : 074 BPM Atrial Rate : 267 BPM P-R Int : 000 ms QRS Dur : 126 ms QT Int : 422 ms P-R-T Axes : 000 -30 118 degrees QTc Int : 468 ms Poor data quality, interpretation may be adversely affected Atrial flutter Left axis deviation Non-specific intra-ventricular conduction block Nonspecific T wave abnormality Abnormal ECG When compared with ECG of 24-MAR-2021 18:26, Vent. rate has decreased BY 54 BPM Prior tracing probable atrial flutter also Confirmed by Theo Peguero ([id number]) on 03/25/2021 8:39:15 AM Referred By: Milena Garcia Confirmed By:Theo Peguero
[2021-03-25 08:53] LABS: BUN Creatinine Ratio 11.4 (10-20); Calcium 8.2 mg/dl (8.5-10.1); Creatinine Clr Calc Pharmacy 57.8 ml/min; Est GFR (African American) 66.5 ml/min; Est GFR (Non-African American) 57.4 ml/min; Potassium 4.1 mmol/L (3.5-5.1)
--- NOTE | 2021-03-25 08:58 | Electrocardiogram Report ---
Test Reason : Blood Pressure : / mmHG Vent. Rate : 062 BPM Atrial Rate : 250 BPM P-R Int : 000 ms QRS Dur : 124 ms QT Int : 460 ms P-R-T Axes : 052 -15 -55 degrees QTc Int : 466 ms Atrial flutter with 4:1 A-V conduction Non-specific intra-ventricular conduction delay Nonspecific T wave abnormality Abnormal ECG When compared with ECG of 24-MAR-2021 19:50, T wave inversion now evident in Anterolateral leads Confirmed by Theo Peguero ([id number]) on 03/25/2021 8:58:14 AM Referred By: Milena Garcia Confirmed By:Theo Peguero
[2021-03-25 08:59] LABS: Troponin I 0.032 ng/ml (0-0.045)
[2021-03-25] MEDS ORDERED: ASPIRIN 81 MG ECTAB PO SCH (09:00)
[2021-03-25] MEDS: ATORVASTATIN 40 MG TAB PO SCH (09:07)
[2021-03-25] MEDS: METOPROLOL SUCC 25MG EXT REL TAB PO SCH (09:08)
[2021-03-25] MEDS: PANTOprazole 40 MG TAB PO SCH (09:08)
[2021-03-25] MEDS: LOSARTAN POTASSIUM 25 MG TAB PO SCH (09:08)
--- NOTE | 2021-03-25 09:34 | Cardiology Consultation ---
Date of Consultation March 25, 2021 Assessment & Plan (1) CAD (coronary artery disease): He has a remote history of coronary disease in a perfusion study from a couple of years ago suggesting some ischemia. However, he is not currently having symptoms of coronary insufficiency or angina. He is a very active individual and we will continue his current secondary prevention with atorvastatin and a switch from aspirin to apixaban (2) Atrial flutter: unclear if this is related to his prior cardiac surgery. It does not appear to be a typical right atrial flutter. He has few symptoms but does have elevated heart rates in some element of exercise intolerance with significant activity. I think his likelihood of converting spontaneously is low. I do not think we will have a lot of success with rate control. I would advocate an earlier conversion back to sinus rhythm. While he did undergo a left atrial appendage ligation at the time of his cardiac surgery 11 years ago, we will perform a transesophageal echocardiogram in order to exclude atrial thrombus prior to cardioversion. He will be started on apixaban which she should continue indefinitely. Aspirin can be discontinued. I did discuss the risks and benefits of the procedure with him and alternatives this morning. Will plan on proceeding tomorrow morning. It is unclear if he will have an early recurrence of atrial flutter. He may require more aggressive therapy such as antiarrhythmic medications or even catheter based ablation. (3) H/O mitral valve repair: He has some very mild mitral stenosis on echocardiography. Some mild regurgitation as well. I do not believe this is a contraindication to use of the novel oral anticoagulants for his atrial flutter. History of Present Illness Reason for Consultation: Atrial flutter Requesting Physician: Adlison Attending Physician: Lis Montalvo MD History of Present Illness the patient is a 76-year-old gentleman with a history of coronary artery disease and valvular heart disease who had previously undergone both coronary artery bypass grafting x3 and a mitral valve repair. recently, the patient was notified by a wearable heart rate monitor that he had a high pulse. He did not appear to have associated symptoms initially but did have 1 episode of dyspnea and mild dizziness while at ascending stairs. Based on the persistently elevate d heart rate he scheduled an appointment with his primary care physician. He was felt to have a sinus tachycardia of unclear etiology and sent to the emergency room for evaluation. Additional electrocardiograms were more suggestive of an atrial flutter. The patient was admitted for management. Outside of the 1 episode of dyspnea and dizziness while at ascending stairs the patient states that he has been feeling quite well. He has maintained a good level of activity and exercises regularly without limiting dyspnea or chest discomfort. He has not been aware of any palpitations. In general, without notification and his heart rate was high he would not have noticed any specific problem. Currently feeling well. He has been ambulatory around his room and mild activity does not produce symptoms. Allergies Allergy/AdvReac Type Severity Reaction Status Date / Time No Known Drug Allergies Allergy Unknown Rash Verified 03/24/21 16:25 SUNLIGHT Allergy Unknown UNKNOWN Uncoded 03/24/21 16:25 Home Medications Medication Instructions Recorded Confirmed Type aspirin 81 mg tablet,delayed 81 mg PO DAILY tab 05/19/19 03/24/21 History release metoprolol succinate 25 mg 25 mg PO DAILY #90 tab 06/12/20 03/24/21 Rx tablet,extended release 24 hr atorvastatin 40 mg tablet 40 mg PO DAILY #90 tab 09/10/20 03/24/21 Rx losartan 25 mg tablet 25 mg PO DAILY #90 tab 10/02/20 03/24/21 Rx pantoprazole 40 mg tablet,delayed 40 mg PO DAILY 03/24/21 03/24/21 History release Patient History Medical History Acid reflux CAD (coronary artery disease) Colitis Kidney stones Myocardial Infarction Secondary hyperparathyroidism Spontaneous pneumothorax Stage III chronic kidney disease Surgical History H/O heart bypass surgery 02/2010, daley to LAD, saphenous vein graft to om 1 and om 2, saphenous vein graft to diagonal, saphenous vein graft to right coronary artery H/O mitral valve repair 02/2010 History of cholecystectomy (~2017) History of ERCP (~2017) History of tonsillectomy Family History Father Myocardial infarction Stroke Coronary heart disease Depression Mother Diverticulosis Stroke Glaucoma Other Coronary arteriosclerosis Stroke syndrome Denies family history of Ovarian cancer Prostate cancer Breast cancer Colorectal cancer Social History Smoking Status: Former smoker Smoking End Date: 1983; Second Hand Exposure: No; Hx Alcohol Use: Yes Alcohol type: beer Alcohol Intake Frequency: 4 or More x per/Week Alcohol Intake Frequency Comment: daily - 1 beer and 1 cocktail Hx Substance Use: No Preferred Language: Maltese Communication Ability: Effective Visual Impairment: No Limitations Hearing Ability: Use of Hearing Aid [employer] Required: No Beliefs That Will Affect Care: None marital status: Single Current Living Situation: Alone Current Living Situation Comment: has a cat current occupational status: retired Other Information That Helps Us Care for You: No Feels Safe at Home: Yes Safety Concerns: Feels Safe At This Time Childhood Exposure to Second-Hand Smoke: Yes Dental Care, Regularly: Yes Physical Activity Frequency: 1-2 Times per Week Seatbelt Use: always Sunscreen Use: Yes Assistive Devices: Hearing Aid - Bilateral Review of Systems Review of Systems: All systems reviewed & are unremarkable except as noted in HPI & below Physical Exam Physical Exam: The patient is alert and oriented. Mood and affect appeared normal. He answered all questions appropriately. HEENT: Pupils are equal and reactive to light and accommodation. Extraocular movements are intact. The sclerae are anicteric. Neuro: Cranial nerves intact Neck: Patient's neck is supple. He has palpable carotid pulses bilaterally without bruits on auscultation. There is no evidence of jugular venous distention. The thyroid is not enlarged. Lungs: Clear to auscultation bilaterally. He has good air movement without use of accessory muscles. No rales wheezes or rhonchi. Cardiac: Heart demonstrates an Irregular rhythm with elevated heart rate. Normal S1 and S2. No murmurs on examination. Pulses: The patient has palpable radial pulses bilaterally that are equal in intensity Extremities: There was no evidence of hypoperfusion. There is no cyanosis or clubbing. There is no edema. Skin: I did not appreciate any rashes on examination today. Results & Data ([facility]) Vital Signs (Past 12 Hours) Vital Signs Temp Pulse Pulse Pulse Resp BP BP 03/25/21 07:28 36.6 C 70 16 102/62 03/25/21 07:21 62 03/25/21 06:12 125 H 03/25/21 05:50 62 03/25/21 05:13 62 03/25/21 00:43 75 03/25/21 00:20 128 H 141/88 H 03/25/21 00:08 127 H 03/25/21 00:01 36.4 C L 128 H 20 03/24/21 23:30 85 20 131/79 03/24/21 23:00 64 23 110/75 03/24/21 22:46 63 03/24/21 22:23 124 H 20 131/74 03/24/21 22:09 94 H 20 131/74 BP Pulse Ox 03/25/21 07:28 95 03/25/21 07:21 03/25/21 06:12 03/25/21 05:50 03/25/21 05:13 03/25/21 00:43 03/25/21 00:20 03/25/21 00:08 03/25/21 00:01 141/88 H 98 03/24/21 23:30 96 03/24/21 23:00 94 03/24/21 22:46 03/24/21 22:23 97 03/24/21 22:09 96 Laboratory Results Abnormal Lab Results 03/24/21 03/24/21 03/24/21 18:50 18:50 18:50 WBC 6.43 RBC 4.29 L Hgb 13.8 L Hct 40.7 L MCV 94.9 MCH 32.2 MCHC 33.9 RDW Std Deviation 47.5 H RDW Coeff of Roc[place] 13.8 Plt Count 205 MPV 10.5 H Immature Gran % (Auto) 0.0 Neut % (Auto) 61.4 Lymph % (Auto) 26.3 [place] % (Auto) 8.2 Eos % (Auto) 3.6 Baso % (Auto) 0.5 Neut # (Auto) 3.95 Lymph # (Auto) 1.69 [place] # (Auto) 0.53 Eos # (Auto) 0.23 Baso # (Auto) 0.03 Immature Gran # (Auto) 0.00 PT 10.1 INR 1.0 APTT 24.7 PTT Ratio 0.9 Sodium 143 Potassium 3.9 Chloride 111 H Carbon Dioxide 26 Anion Gap 6.0 BUN 15 Creatinine 1.35 Est Cr Clr Drug Dosing 51.8 Est GFR ( Amer) 58.3 Est GFR (Non-Af Amer) 50.3 BUN/Creatinine Ratio 10.7 Glucose 95 Calcium 9.3 Magnesium 2.2 Total Bilirubin 0.6 AST 37 ALT 64 Alkaline Phosphatase 70 Troponin I 0.020 NT-Pro-B Natriuret Pep Total Protein 8.0 Albumin 4.2 Globulin 3.8 Albumin/Globulin Ratio 1.1 Triglycerides Cholesterol LDL Cholesterol, Calc VLDL Cholesterol, Calc HDL Cholesterol Cholesterol/HDL Ratio TSH 2.160 Urine Color Urine Appearance Urine pH Ur Specific [place] Urine Protein Urine Glucose (UA) Urine Ketones Urine Blood Urine Nitrite Urine Bilirubin Urine Urobilinogen Ur Leukocyte Esterase COVID-19 Eval Order SARS-CoV-2 (PCR) 03/24/21 03/24/21 03/25/21 19:18 19:18 04:50 WBC RBC Hgb Hct MCV MCH MCHC RDW Std Deviation RDW Coeff of [place] Plt Count MPV Immature Gran % (Auto) Neut % (Auto) Lymph % (Auto) [place] % (Auto) Eos % (Auto) Baso % (Auto) Neut # (Auto) Lymph # (Auto) [place] # (Auto) Eos # (Auto) Baso # (Auto) Immature Gran # (Auto) PT INR APTT PTT Ratio Sodium Potassium Chloride Carbon Dioxide Anion Gap BUN Creatinine Est Cr Clr Drug Dosing Est GFR ( Amer) Est GFR (Non-Af Amer) BUN/Creatinine Ratio Glucose Calcium Magnesium Total Bilirubin AST ALT Alkaline Phosphatase Troponin I NT-Pro-B Natriuret Pep Total Protein Albumin Globulin Albumin/Globulin Ratio Triglycerides Cholesterol LDL Cholesterol, Calc VLDL Cholesterol, Calc HDL Cholesterol Cholesterol/HDL Ratio TSH Urine Color Dark Yellow Urine Appearance Clear Urine pH 5.0 Ur Specific [place] 1.023 Urine Protein Negative Urine Glucose (UA) Negative Urine Ketones Trace H Urine Blood Negative Urine Nitrite Negative Urine Bilirubin Negative Urine Urobilinogen Negative Ur Leukocyte Esterase Negative COVID-19 Eval Order Covid19 at [facility] SARS-CoV-2 (PCR) NEGATIVE 03/25/21 03/25/21 08:08 08:08 WBC 4.85 RBC 3.64 L Hgb 11.7 L Hct 34.7 L MCV 95.3 MCH 32.1 MCHC 33.7 RDW Std Deviation 47.8 H RDW Coeff of [place] 13.7 Plt Count 150 MPV 10.3 Immature Gran % (Auto) 0.2 Neut % (Auto) 54.7 Lymph % (Auto) 31.1 [place] % (Auto) 7.6 Eos % (Auto) 5.8 Baso % (Auto) 0.6 Neut # (Auto) 2.65 Lymph # (Auto) 1.51 [place] # (Auto) 0.37 Eos # (Auto) 0.28 Baso # (Auto) 0.03 Immature Gran # (Auto) 0.01 PT INR APTT PTT Ratio Sodium 144 Potassium 4.1 Chloride 113 H Carbon Dioxide 28 Anion Gap 4.0 BUN 14 Creatinine 1.21 Est Cr Clr Drug Dosing 57.8 Est GFR ( Amer) 66.5 Est GFR (Non-Af Amer) 57.4 BUN/Creatinine Ratio 11.4 Glucose 82 Calcium 8.2 L Magnesium 2.0 Total Bilirubin AST ALT Alkaline Phosphatase Troponin I 0.032 NT-Pro-B Natriuret Pep 2628 H Total Protein Albumin Globulin Albumin/Globulin Ratio Triglycerides 111 Cholesterol 91 LDL Cholesterol, Calc 39 VLDL Cholesterol, Calc 22 HDL Cholesterol 30 Cholesterol/HDL Ratio 3 TSH Urine Color Urine Appearance Urine pH Ur Specific [place] Urine Protein Urine Glucose (UA) Urine Ketones Urine Blood Urine Nitrite Urine Bilirubin Urine Urobilinogen Ur Leukocyte Esterase COVID-19 Eval Order SARS-CoV-2 (PCR) Diagnostic Findings chest x-ray obtained at the time admission not reveal any acute cardiopulmonary findings. PG Care Time/CCT Total # of Minutes Spent Total Time Spent with Patient: Total time spent is greater than 50% in coordination of care (as documented) at patient's floor/unit and/or counseling patient: Coding Level of Care Code 53931 Initial Inpt Care Lvl 3 Diagnoses CAD (coronary artery disease) I25.10 Coronary Disease-Associated Artery/Lesion type: [place] artery [place] vs. transplanted heart: [place] heart Associated angina: without angina Atrial flutter I48.92 H/O mitral valve repair Z98.890 (1) CAD (coronary artery disease) Coronary Disease-Associated Artery/Lesion type: [place] artery [place] vs. transplanted heart: [place] heart Associated angina: without angina Qualified Code(s): I25.10 - Atherosclerotic heart disease of [place] coronary artery without angina pectoris
[2021-03-25] MEDS ORDERED: ENOXAPARIN 100 MG/1ML SYR SQ SCH (10:00)
--- NOTE | 2021-03-25 13:45 | XCELERA ---
[id number]
--- NOTE | 2021-03-25 14:55 | Anesthesiology Consultation ---
Date of Service March 25, 2021 History Surgery Operation Date: 03/26/21 07:15 Proposed Procedures p Transesophageal Echo w/Anesthesia - Horacio Francis MD s Cardioversion [employer] Professor w/Anesthesia - Horacio Francis MD Height/Weight Height: 6 ft 1 in Weight: 89.9 kg Allergies Allergy/AdvReac Type Severity Reaction Status Date / Time No Known Drug Allergies Allergy Unknown Rash Verified 03/24/21 16:25 SUNLIGHT Allergy Unknown UNKNOWN Uncoded 03/24/21 16:25 Medications Home Medications Medication Instructions Recorded Confirmed Last Taken aspirin 81 mg tablet,delayed 81 mg PO DAILY tab 05/19/19 03/24/21 Unknown release metoprolol succinate 25 mg 25 mg PO DAILY #90 tab 06/12/20 03/24/21 Unknown tablet,extended release 24 hr atorvastatin 40 mg tablet 40 mg PO DAILY #90 tab 09/10/20 03/24/21 Unknown losartan 25 mg tablet 25 mg PO DAILY #90 tab 10/02/20 03/24/21 Unknown pantoprazole 40 mg tablet,delayed 40 mg PO DAILY 03/24/21 03/24/21 Unknown release Active Medications Generic Name Dose Route Start Last Admin Trade Name Freq PRN Reason Stop Dose Admin Aspirin 81 mg 03/25/21 09:00 03/25/21 09:07 Aspirin 81 Mg Ectab PO 04/24/21 08:59 81 mg DAILY GLORIA Administration Atorvastatin Calcium 40 mg 03/25/21 09:00 03/25/21 09:07 Atorvastatin 40 Mg Tab PO 04/24/21 08:59 40 mg DAILY GLORIA Administration Diphenhydramine HCl 50 mg 03/25/21 00:51 03/25/21 01:09 Diphenhydramine Capsule 25 Mg Cap PO 04/24/21 00:50 50 mg HS PRN Administration Sleep Losartan Potassium 25 mg 03/25/21 09:00 03/25/21 09:08 Losartan Potassium 25 Mg Tab PO 04/24/21 08:59 25 mg DAILY GLORIA Administration Metoprolol Succinate 25 mg 03/25/21 09:00 03/25/21 09:08 Metoprolol Succ 25mg Ext Rel Tab PO 04/24/21 08:59 25 mg DAILY GLORIA Administration Metoprolol Tartrate 5 mg 03/25/21 00:00 03/25/21 10:39 Metoprolol Tartrate 1 Mg/Ml Vial IV 04/24/21 00:00 5 mg Q4 PRN Administration tachycardia HR> 110 Pantoprazole Sodium 40 mg 03/25/21 09:00 03/25/21 09:08 Pantoprazole 40 Mg Tab PO 04/24/21 08:59 40 mg DAILY GLORIA Administration Past Medical History Medical History Acid reflux CAD (coronary artery disease) Colitis Kidney stones Myocardial Infarction Secondary hyperparathyroidism Spontaneous pneumothorax Stage III chronic kidney disease Past Family History Family History Father Myocardial infarction Stroke Coronary heart disease Depression Mother Diverticulosis Stroke Glaucoma Other Coronary arteriosclerosis Stroke syndrome Denies family history of Ovarian cancer Prostate cancer Breast cancer Colorectal cancer Past Surgical History Surgical History H/O heart bypass surgery 02/2010, daley to LAD, saphenous vein graft to om 1 and om 2, saphenous vein graft to diagonal, saphenous vein graft to right coronary artery H/O mitral valve repair 02/2010 History of cholecystectomy (~2017) History of ERCP (~2017) History of tonsillectomy Social History Smoking Status: Former smoker Smoking End Date: 1983 Hx Alcohol Use: Yes Alcohol type: beer alcohol intake frequency: 0-2 drinks per day Hx Substance Use: No substance use type: does not use Physical Exam Vital Signs Last Vital Signs Temp 36.5 C 03/25/21 11:01 Pulse 62 03/25/21 11:01 Resp 18 03/25/21 11:01 BP 117/69 03/25/21 11:01 Pulse Ox 96 03/25/21 11:01 Testing Laboratory Results 03/25/21 08:08 03/25/21 08:08 PT 10.1 Seconds (9.0-12.0) 03/24/21 18:50 INR 1.0 (0.9-1.1) 03/24/21 18:50 APTT 24.7 Seconds (21.0-31.0) 03/24/21 18:50 Urine Color Dark Yellow 03/25/21 04:50 Urine Appearance Clear (Clear) 03/25/21 04:50 Urine pH 5.0 (4.5-7.5) 03/25/21 04:50 Ur Specific [place] 1.023 (1.000-1.030) 03/25/21 04:50 Urine Protein Negative (Negative) 03/25/21 04:50 Urine Glucose (UA) Negative (Negative) 03/25/21 04:50 Urine Ketones Trace (Negative) H 03/25/21 04:50 Urine Nitrite Negative (Negative) 03/25/21 04:50 Ur Leukocyte Esterase Negative (Negative) 03/25/21 04:50 Electrocardiogram Date: 03/25/21 Atrial flutter with 4:1 A-V conduction Non-specific intra-ventricular conduction delay Nonspecific T wave abnormality Abnormal ECG When compared with ECG of 24-MAR-2021 19:50, T wave inversion now evident in Anterolateral leads Confirmed by Theo Peguero ([id number]) on 03/25/2021 8:58:14 AM
[2021-03-25] MEDS: ACETAMINOPHEN 325 MG TAB PO PRN (15:19)
--- NOTE | 2021-03-25 18:26 | Hospitalist Progress Note ---
Date of Service March 25, 2021 Assessment & Plan (1) Afib: Plan: Afib/Aflutter- last known time in Afib 2009 - CHADVASC2 - 2, HASBLED- 2 - > 48 hours in rhythm upon admission - Rate controlled following Diltiazem and did require IV Lopressor on 03/25 -Appreciate cardiology consultation-start Eliquis, plan for LILIANA and cardioversion in the morning -If cardioversion unsuccessful, may need ablation -Echocardiogram with mildly reduced EF, mild AI, mild MR, mild MS Troponin with minor elevation but still within normal limits at 0.02/0.03 -Keep mag >2, K ~4.0 -Continue Eliquis indefinitely 5 mg p.o. twice daily-no history of bleeding was counseled on this (2) S/P CABG x 3: Plan: Cardiology recommends discontinuing aspirin with starting apixaban Continue statin Continue BB Continue losartan (3) HTN (hypertension): Plan: well controlled Continue losartan, metoprolol (4) CAD (coronary artery disease): Plan: As above [place] vessel - ECHO with mildly reduced EF (5) Acid reflux: Plan: Continue pantoprazole (6) BPH with obstruction/lower urinary tract symptoms: Plan: No acute needs, patient denies acute symptoms Plan: DVT prophylaxis-apixaban Disposition-continued stay, n.p.o. after midnight for LILIANA and cardioversion tomorrow and then likely discharge after that Admission and Anticipated Discharge Date Admission Date: March 24, 2021 Subjective Patient feeling well. No shortness of breath with walking the bathroom. No chest pain. No history of bleeding anywhere. He is awaiting LILIANA and cardioversion tomorrow. Telemetry with atrial flutter with rates in the 60s 100s. He did receive 1 dose of IV Lopressor today. Had a 3.1-second pause overnight. I discussed his case with the service tech/welder Review of Systems Review of Systems: All systems reviewed & are unremarkable except as noted in HPI & below Physical Exam Constitutional: WD/WN, vitals as above Eyes: + anicteric sclerae ENMT: external ear and nose normal, oropharynx normal Neck: trachea midline, no thyromegaly Respiratory: normal respiratory effort, lungs clear to auscultation Cardiovascular: Rate/Rhythm: regular rate and + irregularly irregular Heart Sounds: no murmur Chest (Breasts): Chest: normal inspection of chest Gastrointestinal (Abdomen): normal bowel sounds, soft, nontender, no hepatosplenomegaly Musculoskeletal: Extremities: extremities normal to inspection; no cyanosis and no clubbing Skin: no rashes, warm and dry Neurologic: moves all extremities and awake; no focal motor deficits Psychiatric: A+Ox3, euthymic affect Lymphatic: no lymphedema Results & Data Results & Data ([facility]) Vital Signs (Past 12 Hours) Vital Signs Temp Pulse Pulse Resp BP BP BP 03/25/21 15:19 36.7 C 67 16 117/73 03/25/21 15:16 63 03/25/21 11:01 36.5 C 62 18 117/69 03/25/21 10:55 63 113/68 03/25/21 10:39 126 H 115/75 03/25/21 07:28 36.6 C 70 16 102/62 03/25/21 07:21 62 Pulse Ox 03/25/21 15:19 95 03/25/21 15:16 03/25/21 11:01 96 03/25/21 10:55 03/25/21 10:39 03/25/21 07:28 95 03/25/21 07:21 Laboratory Results 03/25/21 03/25/21 03/25/21 Range/Units 08:08 08:08 04:50 WBC 4.85 (4.8-10.8) K/uL RBC 3.64 L (4.7-6.1) M/uL Hgb 11.7 L (14.0-18.0) g/dL Hct 34.7 L (42-52) % MCV 95.3 (80-100) fL MCH 32.1 (25-34) pg MCHC 33.7 (32-36) g/dL RDW Std Deviation 47.8 H (36.4-46.3) fL RDW Coeff of Rocio 13.7 (11.5-14.5) % Plt Count 150 (130-400) K/uL MPV 10.3 (7.4-10.4) fL Immature Gran % (Auto) 0.2 % Neut % (Auto) 54.7 % Lymph % (Auto) 31.1 % [place] % (Auto) 7.6 % Eos % (Auto) 5.8 % Baso % (Auto) 0.6 % Neut # (Auto) 2.65 (1.4-6.5) K/uL Lymph # (Auto) 1.51 (1.2-3.4) K/uL [place] # (Auto) 0.37 (0.11-0.59) K/uL Eos # (Auto) 0.28 (0-0.5) K/uL Baso # (Auto) 0.03 (0-0.2) K/uL Immature Gran # (Auto) 0.01 (0.00-0.02) K/uL PT (9.0-12.0) Seconds INR (0.9-1.1) APTT (21.0-31.0) Seconds PTT Ratio Sodium 144 (136-145) mmol/L Potassium 4.1 (3.5-5.1) mmol/L Chloride 113 H (98-107) mmol/L Carbon Dioxide 28 (21-32) mmol/L Anion Gap 4.0 (3-11) BUN 14 (7-18) mg/dl Creatinine 1.21 (0.6-1.4) mg/dl Est Cr Clr Drug Dosing 57.8 ml/min Est GFR ( Amer) 66.5 ml/min Est GFR (Non-Af Amer) 57.4 ml/min BUN/Creatinine Ratio 11.4 (10-20) Glucose 82 (70-99) mg/dl Calcium 8.2 L (8.5-10.1) mg/dl Magnesium 2.0 (1.8-2.4) mg/dl Total Bilirubin (0.2-1) mg/dl AST (15-37) U/L ALT (12-78) U/L Alkaline Phosphatase (45-117) U/L Troponin I 0.032 (0-0.045) ng/ml NT-Pro-B Natriuret Pep 2628 H (0-1800) pg/ml Total Protein (6.4-8.2) gm/dl Albumin (3.4-5.0) gm/dl Globulin (2.5-4.0) gm/dl Albumin/Globulin Ratio (0.9-2) Triglycerides 111 (0-150) mg/dl Cholesterol 91 (0-200) mg/dl LDL Cholesterol, Calc 39 mg/dl VLDL Cholesterol, Calc 22 mg/dl HDL Cholesterol 30 mg/dl Cholesterol/HDL Ratio 3 TSH (0.300-4.500) uIu/ml Urine Color Dark Yellow Urine Appearance Clear (Clear) Urine pH 5.0 (4.5-7.5) Ur Specific [place] 1.023 (1.000-1.030) Urine Protein Negative (Negative) Urine Glucose (UA) Negative (Negative) Urine Ketones Trace H (Negative) Urine Blood Negative (Negative) Urine Nitrite Negative (Negative) Urine Bilirubin Negative (Negative) Urine Urobilinogen Negative (Negative) Ur Leukocyte Esterase Negative (Negative) COVID-19 Eval Order SARS-CoV-2 (PCR) (Negative) 03/24/21 03/24/21 03/24/21 Range/Units 19:18 19:18 19:10 WBC (4.8-10.8) K/uL RBC (4.7-6.1) M/uL Hgb (14.0-18.0) g/dL Hct (42-52) % MCV (80-100) fL MCH (25-34) pg MCHC (32-36) g/dL RDW Std Deviation (36.4-46.3) fL RDW Coeff of Rocio (11.5-14.5) % Plt Count (130-400) K/uL MPV (7.4-10.4) fL Immature Gran % (Auto) % Neut % (Auto) % Lymph % (Auto) % [place] % (Auto) % Eos % (Auto) % Baso % (Auto) % Neut # (Auto) (1.4-6.5) K/uL Lymph # (Auto) (1.2-3.4) K/uL [place] # (Auto) (0.11-0.59) K/uL Eos # (Auto) (0-0.5) K/uL Baso # (Auto) (0-0.2) K/uL Immature Gran # (Auto) (0.00-0.02) K/uL PT (9.0-12.0) Seconds INR (0.9-1.1) APTT (21.0-31.0) Seconds PTT Ratio Sodium (136-145) mmol/L Potassium (3.5-5.1) mmol/L Chloride (98-107) mmol/L Carbon Dioxide (21-32) mmol/L Anion Gap (3-11) BUN (7-18) mg/dl Creatinine (0.6-1.4) mg/dl Est Cr Clr Drug Dosing ml/min Est GFR ( Amer) ml/min Est GFR (Non-Af Amer) ml/min BUN/Creatinine Ratio (10-20) Glucose (70-99) mg/dl Calcium (8.5-10.1) mg/dl Magnesium (1.8-2.4) mg/dl Total Bilirubin (0.2-1) mg/dl AST (15-37) U/L ALT (12-78) U/L Alkaline Phosphatase (45-117) U/L Troponin I (0-0.045) ng/ml NT-Pro-B Natriuret Pep (0-1800) pg/ml Total Protein (6.4-8.2) gm/dl Albumin (3.4-5.0) gm/dl Globulin (2.5-4.0) gm/dl Albumin/Globulin Ratio (0.9-2) Triglycerides (0-150) mg/dl Cholesterol (0-200) mg/dl LDL Cholesterol, Calc mg/dl VLDL Cholesterol, Calc mg/dl HDL Cholesterol mg/dl Cholesterol/HDL Ratio TSH (0.300-4.500) uIu/ml Urine Color Urine Appearance (Clear) Urine pH (4.5-7.5) Ur Specific [place] (1.000-1.030) Urine Protein (Negative) Urine Glucose (UA) (Negative) Urine Ketones (Negative) Urine Blood (Negative) Urine Nitrite (Negative) Urine Bilirubin (Negative) Urine Urobilinogen (Negative) Ur Leukocyte Esterase (Negative) COVID-19 Eval Order Covid19 at [facility] Pending SARS-CoV-2 (PCR) NEGATIVE (Negative) 03/24/21 03/24/21 03/24/21 Range/Units 18:50 18:50 18:50 WBC 6.43 (4.8-10.8) K/uL RBC 4.29 L (4.7-6.1) M/uL Hgb 13.8 L (14.0-18.0) g/dL Hct 40.7 L (42-52) % MCV 94.9 (80-100) fL MCH 32.2 (25-34) pg MCHC 33.9 (32-36) g/dL RDW Std Deviation 47.5 H (36.4-46.3) fL RDW Coeff of Rocio 13.8 (11.5-14.5) % Plt Count 205 (130-400) K/uL MPV 10.5 H (7.4-10.4) fL Immature Gran % (Auto) 0.0 % Neut % (Auto) 61.4 % Lymph % (Auto) 26.3 % [place] % (Auto) 8.2 % Eos % (Auto) 3.6 % Baso % (Auto) 0.5 % Neut # (Auto) 3.95 (1.4-6.5) K/uL Lymph # (Auto) 1.69 (1.2-3.4) K/uL [place] # (Auto) 0.53 (0.11-0.59) K/uL Eos # (Auto) 0.23 (0-0.5) K/uL Baso # (Auto) 0.03 (0-0.2) K/uL Immature Gran # (Auto) 0.00 (0.00-0.02) K/uL PT 10.1 (9.0-12.0) Seconds INR 1.0 (0.9-1.1) APTT 24.7 (21.0-31.0) Seconds PTT Ratio 0.9 Sodium 143 (136-145) mmol/L Potassium 3.9 (3.5-5.1) mmol/L Chloride 111 H (98-107) mmol/L Carbon Dioxide 26 (21-32) mmol/L Anion Gap 6.0 (3-11) BUN 15 (7-18) mg/dl Creatinine 1.35 (0.6-1.4) mg/dl Est Cr Clr Drug Dosing 51.8 ml/min Est GFR ( Amer) 58.3 ml/min Est GFR (Non-Af Amer) 50.3 ml/min BUN/Creatinine Ratio 10.7 (10-20) Glucose 95 (70-99) mg/dl Calcium 9.3 (8.5-10.1) mg/dl Magnesium 2.2 (1.8-2.4) mg/dl Total Bilirubin 0.6 (0.2-1) mg/dl AST 37 (15-37) U/L ALT 64 (12-78) U/L Alkaline Phosphatase 70 (45-117) U/L Troponin I 0.020 (0-0.045) ng/ml NT-Pro-B Natriuret Pep (0-1800) pg/ml Total Protein 8.0 (6.4-8.2) gm/dl Albumin 4.2 (3.4-5.0) gm/dl Globulin 3.8 (2.5-4.0) gm/dl Albumin/Globulin Ratio 1.1 (0.9-2) Triglycerides (0-150) mg/dl Cholesterol (0-200) mg/dl LDL Cholesterol, Calc mg/dl VLDL Cholesterol, Calc mg/dl HDL Cholesterol mg/dl Cholesterol/HDL Ratio TSH 2.160 (0.300-4.500) uIu/ml Urine Color Urine Appearance (Clear) Urine pH (4.5-7.5) Ur Specific [place] (1.000-1.030) Urine Protein (Negative) Urine Glucose (UA) (Negative) Urine Ketones (Negative) Urine Blood (Negative) Urine Nitrite (Negative) Urine Bilirubin (Negative) Urine Urobilinogen (Negative) Ur Leukocyte Esterase (Negative) COVID-19 Eval Order SARS-CoV-2 (PCR) (Negative) PG Care Time/CCT Total # of Minutes Spent Total Time Spent with Patient: Total time spent is greater than 50% in coordination of care (as documented) at patient's floor/unit and/or counseling patient: Coding Level of Care Code 08103 Subseq Hosp Care Lvl 2 Diagnoses Afib I48.91 Atrial fibrillation type: unspecified S/P CABG x 3 Z95.1 HTN (hypertension) I10 Hypertension type: primary hypertension CAD (coronary artery disease) I25.10 Coronary Disease-Associated Artery/Lesion type: [place] artery [place] vs. transplanted heart: [place] heart Associated angina: without angina Acid reflux K21.9 Esophagitis presence: esophagitis presence not specified BPH with obstruction/lower urinary tract symptoms N40.1; N13.8 (1) Afib Atrial fibrillation type: unspecified Qualified Code(s): I48.91 - Unspecified atrial fibrillation (2) HTN (hypertension) Hypertension type: primary hypertension Qualified Code(s): I10 - Essential (primary) hypertension (3) CAD (coronary artery disease) Coronary Disease-Associated Artery/Lesion type: [place] artery [place] vs. transplanted heart: [place] heart Associated angina: without angina Qualified Code(s): I25.10 - Atherosclerotic heart disease of [place] coronary artery without angina pectoris (4) Acid reflux Esophagitis presence: esophagitis presence not specified Qualified Code(s): K21.9 - Gastro-esophageal reflux disease without esophagitis
[2021-03-25] MEDS: APIXABAN 5 MG TABLET PO SCH (20:29)
[2021-03-26] MEDS: METOPROLOL TARTRATE 1 MG/ML VIAL IV PRN (04:08)
[2021-03-26] MEDS ORDERED: PROPOFOL IV EMULSION 10 MG/ML 20 ML VIAL IV ONE ×2 (06:59→07:02)
[2021-03-26] MEDS ORDERED: LIDOCAINE 2% MPF LOCAL 5 ML VIAL INFIL ONE (07:00)
--- NOTE | 2021-03-26 07:45 | Cardioversion ---
Date of Service March 26, 2021 PG Electrical Cardioversion Rp Electrical Cardioversion Report Procedure performed: Cardioversion Indication: The patient is a 76-year-old gentleman with a history of a mitral valve repair and coronary bypass surgery who presented with atrial flutter and a rapid ventricular rate. Staff adjunct faculty: Konrad Francis MD Procedure in detail: The patient was informed of the risks benefits and alternatives to the intended procedure. He understood such which proceed. He was taken to the cardiac catheterization suite holding area. A general anesthetic was administered by the Anesthesiology Service. Once appropriately anesthetized, the patient was cardioverted using 50 joules delivered in a biphasic fashion. This returned the patient to sinus rhythm. The patient tolerated procedure well, there were no immediate complications. Patient was neurologically intact subsequent to the procedure. Impression: Successful cardioversion from atrial flutter to normal sinus rhythm Coding Level of Care Code Cardioversion, elective Additional Codes Electrical Cardioversion Report ([id number])
--- NOTE | 2021-03-26 07:46 | Post Operative Brief Note ---
Cardiology Brief Post Op Date of Surgery March 26, 2021 Pre & Post Diagnosis Operation Date: 03/26/21 07:15 <No data on this case meets the specified criteria> Procedure LILIANA Smokehouse Worker Konrad Francis MD Acetylene Burner none Estimated Blood Loss 0 Findings See Below No thrombus in GAETANO (oversewn) Complications none
--- NOTE | 2021-03-26 08:29 | Discharge Summary ---
Date of Service March 26, 2021 Admission HPI Per Admitting Provider 76 YOM with past medical history of: CAD, CABG (2010), Mitral valve Repair (2010), left atrial appendage ligation (2010), abdominal pain, Colitis, GERD, Hyperparathyroidism secondary, CKD III, gallstone pancreatitis. Patient comes to the emergency department today after evaluation with his PCP for increased HR. The patient reports that on Wednesday his watch alerted that his heart rate was going fast. He noted the highest it went was 128 and lowest it went was 110. He did notice that today he had to stop and take a break secondary to dyspnea after carrying a load of laundry upstairs, but other than that he denies any other symptoms of chest pain, palpitations, lightheadedness, or shortness of breath at rest. 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 He went to his PCP today and was evaluated with an ECG that was HR in the 130s and regular, in the EMD he received 2 doses of Diltiazem 10 mg IV with decrease in HR to 120's likely atrial fibrillation and following the second dose ECG slowed to 74 BPM with afib/aflutter. Patient will be admitted started on Lovenox for anticoagulation as he has been in this rhythm possibly >48 hours, ECHO, cardiology consult for rhythm/rate management and intermediate teacher anticoagulation management. Patient has a history of atrial fibrillation following his cardiac surgery in 2009, he has no other re-occurence of this. He normally has 2 beers a day. He has never had any signs of withdraw or difficulty going without a drink Principal Diagnosis Atypical atrial flutter Discharge Exam The patient is alert and oriented. Mood and affect appeared normal. He answered all questions appropriately. HEENT: Pupils are equal and reactive to light and accommodation. Extraocular movements are intact. The sclerae are anicteric. Neuro: Cranial nerves intact Lungs: Clear to auscultation bilaterally. He has good air movement without use of accessory muscles. No rales wheezes or rhonchi. Cardiac: Heart demonstrates a regular rate and rhythm. Normal S1 and S2. No murmurs on examination. Pulses: The patient has palpable radial pulses bilaterally that are equal in intensity Extremities: There was no evidence of hypoperfusion. There is no cyanosis or clubbing. There is no edema. Skin: I did not appreciate any rashes on examination today. Discharge Data Allergies Allergy/AdvReac Type Severity Reaction Status Date / Time No Known Drug Allergies Allergy Unknown Rash Verified 03/24/21 16:25 SUNLIGHT Allergy Unknown UNKNOWN Uncoded 03/24/21 16:25 Consultations 03/24/21 20:39 ED Decision to Admit Stat 03/25/21 00:00 Consult Cardiology Routine Procedures Performed Operation Date: 03/26/21 07:15 Actual Procedures s Echo Color Flow - Horacio Francis MD p Echo Transesophageal - Horacio Francis MD Hospital Course (1) CAD (coronary artery disease): He has a remote history of coronary disease in a perfusion study from a couple of years ago suggesting some ischemia. However, he is not currently having symptoms of coronary insufficiency or angina. He is a very active individual and we will continue his current secondary prevention with atorvastatin and a switch from aspirin to apixaban (2) Atrial flutter: this appeared to be in atypical atrial flutter. Possibly related to his prior cardiac surgery. He was minimally symptomatic but did have high ventricular rates at times. On the day of discharge she underwent a transesophageal echocardiogram which did demonstrate ligation of the left atrial appendage. There was no intra-atrial thrombus. He underwent successful cardioversion to sinus rhythm. He will continue on his current dose of metoprolol succinate. He will stop aspirin and start apixaban 5 milligrams twice daily. Will monitor him on an outpatient basis for recurrence in the need for change in treatment strategy. (3) H/O mitral valve repair: He has some very mild mitral stenosis on echocardiography. Some mild regurgitation as well. I do not believe this is a contraindication to use of the novel oral anticoagulants for his atrial flutter. Total Time Total Time Spent Total Time Spent (In Minutes): 15 Total Time Includes: Examination of the Patient, Discharge Planning, Medication Reconciliation and Communication With Other Providers Discharge Plan Discharge Items Patient Disposition: Home - Self-Care Reason For Visit: AFIB Discharge Diagnosis: Atrial flutter Condition on Discharge: Good Activity: Resume your previous activity Activity Comment: Rest today then normal activity tomorrow Bathing: No limitations Driving/Machine Use: Resume 1 day after discharge Non-emergency contact: Entrance Guard Call non-emergency contact if: you have any medication questions and your symptoms worsen Follow-up/Referrals: Milena Garcia MD [Primary Care Provider] - Diet: Heart Healthy Addtl Attending Provider Instructions: none Pending Studies at Discharge: No Stand-Alone Forms: My [facility] vendome [id number], Smoking Cessation Medications and DC Order Prescriptions: New Eliquis 5 mg Tablet 5 mg PO BID Qty: 60 RF: 3 Continued metoprolol succinate 25 mg tablet extended release 24 hr 25 mg PO DAILY Qty: 90 RF: 3 atorvastatin 40 mg tablet 40 mg PO DAILY Qty: 90 RF: 3 losartan 25 mg tablet 25 mg PO DAILY Qty: 90 RF: 3 pantoprazole 40 mg tablet,delayed release (DR/EC) 40 mg PO DAILY RF: 0 Discontinued aspirin 81 mg tablet,delayed release (DR/EC) 81 mg PO DAILY RF: 0 Discharge Orders: Discharge Order (Routine); Ordered 03/26/21 Ordered By: Horacio Francis Admission Data Admit Date/Time: 03/24/21 22:01 Attending Provider: Lis Montalvo Admit Provider: Gurvinder De Anda Primary Care Provider: Milena Garcia Other Providers: Arias Murry ; Patrick Ball Coding Level of Care Code OBSERV/HOSP SAME DATE LVL 2 Diagnoses CAD (coronary artery disease) I25.10 Coronary Disease-Associated Artery/Lesion type: [place] artery [place] vs. transplanted heart: [place] heart Associated angina: without angina Atrial flutter I48.92 H/O mitral valve repair Z98.890
--- NOTE | 2021-03-26 08:31 | Electrocardiogram Report ---
Test Reason : Blood Pressure : / mmHG Vent. Rate : 103 BPM Atrial Rate : 113 BPM P-R Int : 000 ms QRS Dur : 134 ms QT Int : 398 ms P-R-T Axes : 000 -06 -32 degrees QTc Int : 521 ms Atrial fibrillation with rapid ventricular response Non-specific intra-ventricular conduction block Nonspecific T wave abnormality Anterior leads Abnormal ECG When compared with ECG of 25-MAR-2021 05:59, Atrial fibrillation has replaced Atrial flutter Vent. rate has increased BY 41 BPM Confirmed by Theo Peguero ([id number]) on 03/26/2021 8:31:36 AM Referred By: Milena Garcia Confirmed By:Theo Peguero
--- NOTE | 2021-03-26 08:32 | Electrocardiogram Report ---
Test Reason : Blood Pressure : / mmHG Vent. Rate : 073 BPM Atrial Rate : 073 BPM P-R Int : 192 ms QRS Dur : 136 ms QT Int : 424 ms P-R-T Axes : 109 -37 058 degrees QTc Int : 467 ms Normal sinus rhythm Left axis deviation Left ventricular hypertrophy with QRS widening Nonspecific T wave abnormality Anterior leads Abnormal ECG When compared with ECG of 26-MAR-2021 06:05, Sinus rhythm has replaced Atrial fibrillation Confirmed by Theo Peguero ([id number]) on 03/26/2021 8:32:06 AM Referred By: Milena Garcia Confirmed By:Theo Peguero
[2021-03-26] MEDS: PANTOprazole 40 MG TAB PO SCH (08:49)
[2021-03-26] MEDS: ATORVASTATIN 40 MG TAB PO SCH (08:50)
[2021-03-26] MEDS: LOSARTAN POTASSIUM 25 MG TAB PO SCH (08:50)
[2021-03-26] MEDS: METOPROLOL SUCC 25MG EXT REL TAB PO SCH (08:50)
[2021-03-26] MEDS: APIXABAN 5 MG TABLET PO SCH (08:50)
--- NOTE | 2021-03-26 08:57 | Anesthesiology Progress Note ---
Date of Service March 26, 2021 Anesthesia Post Procedure Vital Signs Vital Signs: Temp Pulse Pulse Resp BP BP BP 03/26/21 08:43 37.0 C 71 16 121/71 03/26/21 08:15 71 18 123/67 03/26/21 08:00 75 18 109/65 03/26/21 07:03 36.6 C 122 H 18 139/87 03/26/21 06:36 36.8 C 75 18 142/77 H 03/26/21 04:08 125 H 124/81 03/26/21 04:07 125 H 124/81 03/26/21 03:53 36.5 C 125 H 20 131/84 03/25/21 23:53 36.8 C 62 18 117/61 03/25/21 22:19 62 03/25/21 19:42 36.6 C 62 18 130/73 03/25/21 15:19 36.7 C 67 16 117/73 03/25/21 15:16 63 03/25/21 11:01 36.5 C 62 18 117/69 03/25/21 10:55 63 113/68 03/25/21 10:39 126 H 115/75 Pulse Ox 03/26/21 08:43 94 03/26/21 08:15 93 03/26/21 08:00 96 03/26/21 07:03 03/26/21 06:36 96 03/26/21 04:08 03/26/21 04:07 03/26/21 03:53 96 03/25/21 23:53 97 03/25/21 22:19 03/25/21 19:42 97 03/25/21 15:19 95 03/25/21 15:16 03/25/21 11:01 96 03/25/21 10:55 03/25/21 10:39 Transfer of Care Handoff Completed per policy Notes Mental Status: alert / awake / arousable and participated in evaluation Patient Amnestic to Procedure: Yes Nausea / Vomiting: adequately controlled Pain: adequately controlled Airway Patency, RR, SpO2: stable & adequate BP & HR: stable & adequate Hydration State: stable & adequate Anesthetic Complications: no major complications apparent and Pt Satisfied with anesthetic care
[2021-03-26] MEDS: ACETAMINOPHEN 325 MG TAB PO PRN (10:15)
--- NOTE | 2021-05-30 17:33 | XCELERA ---
[id number]
== END 2021-03-26 10:49 | disposition home or self-care (01) | DRG 310 ==
LOC: ED 18:14 → SUATTDRO 22:01 → 2W 22:01

== ENCOUNTER 2021-05-29 15:03 | Inpatient (IN) ==
[2021-05-29 17:52] LABS: Basophils # (auto) 0.03 K/uL (0-0.2); Basophils % (auto) 0.3 %; Eosinophils # (auto) 0.15 K/uL (0-0.5); Eosinophils % (auto) 1.6 %; Hematocrit (blood only) 38.8 % (42-52); Hemoglobin 13.4 g/dL (14.0-18.0); Immature Granulocytes # (auto) 0.02 K/uL (0.00-0.02); Immature Granulocytes % (auto) 0.2 %; Lymphocytes % (auto) 14.8 %; Mean Corpuscular Hemoglobin 32.4 pg (25-34); Mean Corpuscular Hgb Conc 34.5 g/dL (32-36); Mean Corpuscular Volume 93.9 fL (80-100); Mean Platelet Volume 9.7 fL (7.4-10.4); Monocytes # (auto) 0.88 K/uL (0.11-0.59); Monocytes % (auto) 9.3 %; Neutrophils # (auto) 6.95 K/uL (1.4-6.5); Neutrophils % (auto) 73.8 %; Platelet Count 266 K/uL (130-400); RDW Coefficient of Variation 13.3 % (11.5-14.5); RDW Standard Deviation 45.8 fL (36.4-46.3); Red Blood Count 4.13 M/uL (4.7-6.1); White Blood Count 9.43 K/uL (4.8-10.8)
[2021-05-29 18:07] LABS: INR 1.1 (0.9-1.1); Partial Thromboplastin Time 26.9 Seconds (21.0-31.0); Prothrombin Time 10.7 Seconds (9.0-12.0)
[2021-05-29 18:13] LABS: Alanine Aminotransferase 45 U/L (12-78); Albumin Level 3.1 gm/dl (3.4-5.0); Aspartate Aminotransferase 56 U/L (15-37); BUN Creatinine Ratio 14.7 (10-20); Blood Urea Nitrogen 18 mg/dl (7-18); Calcium 9.2 mg/dl (8.5-10.1); Carbon Dioxide 25 mmol/L (21-32); Chloride 107 mmol/L (98-107); Est GFR (African American) 64.6 ml/min; Est GFR (Non-African American) 55.7 ml/min; Glucose 102 mg/dl (70-99); Magnesium 2.3 mg/dl (1.8-2.4); Potassium 4.1 mmol/L (3.5-5.1); Sodium 138 mmol/L (136-145)
[2021-05-29 18:40] LABS: Albumin Globulin Ratio 0.6 (0.9-2); Alkaline Phosphatase 74 U/L (45-117); Bilirubin,Total 0.7 mg/dl (0.2-1); Globulin 4.8 gm/dl (2.5-4.0); Total Protein 7.9 gm/dl (6.4-8.2); Troponin I 0.169 ng/ml (0-0.045)
[2021-05-29] MEDS ORDERED: FAMOTIDINE 20MG IV PUSH 20 MG/5 ML SYR IV STA (18:47)
[2021-05-29] MEDS ORDERED: SODIUM CHLORIDE 0.9% 500 ML IV ONE (18:49)
--- NOTE | 2021-05-29 18:58 | XRay Report ---
XR chest 1V portable INDICATION: Dyspnea. TECHNIQUE: Single frontal radiograph of the chest was obtained. Comparison: Comparison is made to chest 2 views 05/26/2021 FINDINGS: Stable postsurgical changes. The cardiomediastinal silhouette is normal. Redemonstration of bilateral airspace opacities which are slightly improved from prior exam. No evidence of pleural effusion or p neumothorax. IMPRESSION: Interval slight improvement in previously noted bilateral airspace opacities compatible with history of viral pneumonia. ACT 112: Negative or not required by law. Electronically signed by: Frederic Silverman M.D. 05/29/2021 6:57 PM
--- NOTE | 2021-05-29 21:11 | History & Physical Report ---
Date of Service May 29, 2021 Assessment & Plan (1) COVID-19: Plan: Raymond Ames is a 76-year-old male with past medical history significant for hypertension, s/p CABG x3, atrial fibrillation, CKD stage III, and BPH; who presents for concerns of low oxygen saturations in the setting of known COVID- 19. COVID-19: -Initially positive for COVID-19 on 05/13, with repeat testing on 05/29 -TTE chest demonstrating widespread patchy bilateral groundglass opacities with peripheral distribution consistent with prior pneumonia -No increased oxygen requirement -Start Decadron 6 mg daily -Admit to PCU with COVID-19 precautions Elevated troponin: -Troponin on admission 0.169 -Concern for potential Covid myocarditis verse NSTEMI versus demand ischemia -EKG without acute changes -Repeat troponin 0.164 -Patient with extensive coronary artery disease history and status post three- vessel CABG -CT chest demonstrating previous sternotomy, CABG, mitral valve replacement with no cardiomegaly or pericardial effusion -Trend troponins every 8 hours overnight Hypoxia: -No demonstrated hypoxia on admission -Partially in the setting of COVID-19 verse error on pulse home pulse ox -Continue to monitor Hypertension: -Continue home regimen of losartan 25 mg daily Atrial fibrillation: -Continue home regimen of metoprolol 25 mg daily and Eliquis 5 mg twice daily Hyperlipidemia: -Continue home regimen of atorvastatin 40 mg daily Diet: Heart healthy CODE STATUS: DNR/DNI DVT prophylaxis: Continue anticoagulation with Eliquis (2) Elevated troponin: (3) S/P CABG x 3: (4) HTN (hypertension): (5) Afib: History of Present Illness Primary Care Provider: Milena Garcia MD Raymond Ames is a 76-year-old male with past medical history significant for hypertension, s/p CABG x3, atrial fibrillation, CKD stage III, BPH; who presents for concerns of low oxygen saturations in the setting of known COVID-19. Was tested for COVID-19 on 05/13 following 1 day of upper respiratory-like symptoms. These symptoms continued for several days before he felt like they have mostly resolved. It was seen by PCP earlier this week for concerns of weakness of his left arm and leg, at that time had lab work done which showed a mildly elevated white blood cell count, and an EKG at that point time that was negative, additionally had a chest x-ray which demonstrated concern for bilateral perihilar airspace opacities consistent with viral pneumonia. And at that time had no other focal neurologic deficits/findings. Over the last 24 hours she has noticed continued worsening of his weakness but he saw his PCP for as well as development of fevers, chills, sweats. Ultimately and he was checking his oxygen saturations on his pulse home pulse ox which said that he was in the mid to upper 80s, which he knew was concerning and caused him to decided come to the ER for evaluation. In the ED has maintained his oxygen saturations without supplemental oxygen. Did have blood work that demonstrated an elevated troponin. Repeat chest x-ray demonstrating interval improvement from earlier this week and bilateral airspace opacities. Denies any specific cardiac-type symptoms specifically denying chest pain, shortness of breath, palpitations, orthopnea. Allergies Allergy/AdvReac Type Severity Reaction Status Date / Time No Known Drug Allergies Allergy Unknown Rash Verified 05/29/21 20:34 SUNLIGHT Allergy Unknown UNKNOWN Uncoded 05/29/21 20:34 Home Medications Medication Instructions Recorded Confirmed Type atorvastatin 40 mg tablet 40 mg PO DAILY #90 tab 09/10/20 05/29/21 Rx losartan 25 mg tablet 25 mg PO DAILY #90 tab 10/02/20 05/29/21 Rx apixaban 5 mg tablet (Eliquis) 5 mg PO BID #60 tab 03/26/21 05/29/21 Rx metoprolol succinate 25 mg 25 mg PO DAILY #90 tab 04/30/21 05/29/21 Rx tablet,extended release 24 hr Past Med/Surg History Medical History Acid reflux CAD (coronary artery disease) Colitis COVID-19 History of cardioversion 03/26/21 Dr. Konrad Francis- 1 shock, 50 joules, biphasic Kidney stones Myocardial Infarction Secondary hyperparathyroidism Spontaneous pneumothorax Stage III chronic kidney disease Surgical History H/O heart bypass surgery 02/2010, daley to LAD, saphenous vein graft to om 1 and om 2, saphenous vein graft to diagonal, saphenous vein graft to right coronary artery H/O mitral valve repair 02/2010 History of cholecystectomy (~2018) History of ERCP (~2018) History of tonsillectomy Family History Father Myocardial infarction Stroke Coronary heart disease Depression Mother Diverticulosis Stroke Glaucoma Other Coronary arteriosclerosis Stroke syndrome Denies family history of Ovarian cancer Prostate cancer Breast cancer Colorectal cancer Social History Smoking Status: Former smoker Tobacco Type: Cigarettes Second Hand Exposure: No; Do You Dip or Chew Tobacco: No; Tobacco Cessation Education Requested by Patient: No Hx Alcohol Use: Yes Alcohol type: beer and other Alcohol Intake Frequency: 4 or More x per/Week Alcohol Intake Frequency Comment: daily - 1 beer and 1 cocktail Hx Substance Use: No Preferred Language: Honduran Communication Ability: Unable Visual Impairment: No Limitations Hearing Ability: Use of Hearing Aid Intelligence Agent Required: No Beliefs That Will Affect Care: None marital status: / Current Living Situation: Alone Current Living Situation Comment: has a cat current occupational status: retired Other Information That Helps Us Care for You: No Feels Safe at Home: Yes Safety Concerns: Feels Safe At This Time Childhood Exposure to Second-Hand Smoke: Yes Dental Care, Regularly: Yes Physical Activity Frequency: 1-2 Times per Week Seatbelt Use: always Sunscreen Use: Yes Assistive Devices: None Review of Systems Review of Systems: All systems reviewed & are unremarkable except as noted in HPI & below Physical Exam Constitutional: WD/WN, vitals as above Eyes: PERRL, conjunctivae normal, anicteric sclerae Respiratory: normal respiratory effort, lungs clear to auscultation Auscultation: no crackles, no rales, no rhonchi and no wheezes Cardiovascular: Rate/Rhythm: regular rate and regular rhythm Heart Sounds: no gallop, no murmur and no cardiac rub Vessels: normal peripheral pulses; no JVD Extremities: no edema Gastrointestinal (Abdomen): Inspection/Auscultation: normal bowel sounds; abdomen not distended Percussion/Palpation: abdomen soft; abdomen nontender and no guarding Musculoskeletal: no cyanosis or clubbing, extremities motor strength 5/5 Skin: Old well-healed anterior sternotomy surgical incision Neurologic: PERRL, EOMI, accommodation nl, no face palsy, no dysarthria CN's II-XI intact bilaterally and moves all extremities Psychiatric: Orientation: alert and oriented x 3 Results & Data Results & Data ([facility]) Vital Signs (Past 12 Hours) Vital Signs Temp Pulse Pulse Resp BP Pulse Ox 05/29/21 19:00 69 24 127/74 96 05/29/21 18:35 83 16 96 05/29/21 18:30 81 24 150/82 H 96 05/29/21 17:23 84 16 96 05/29/21 15:45 36.0 C L 90 20 123/74 94 Laboratory Results 05/29/21 05/29/21 05/29/21 Range/Units 19:10 19:10 17:39 WBC (4.8-10.8) K/uL RBC (4.7-6.1) M/uL Hgb (14.0-18.0) g/dL Hct (42-52) % MCV (80-100) fL MCH (25-34) pg MCHC (32-36) g/dL RDW Std Deviation (36.4-46.3) fL RDW Coeff of Rocio (11.5-14.5) % Plt Count (130-400) K/uL MPV (7.4-10.4) fL Immature Gran % (Auto) % Neut % (Auto) % Lymph % (Auto) % Kimble % (Auto) % Eos % (Auto) % Baso % (Auto) % Neut # (Auto) (1.4-6.5) K/uL Lymph # (Auto) (1.2-3.4) K/uL Kimble # (Auto) (0.11-0.59) K/uL Eos # (Auto) (0-0.5) K/uL Baso # (Auto) (0-0.2) K/uL Immature Gran # (Auto) (0.00-0.02) K/uL PT (9.0-12.0) Seconds INR (0.9-1.1) APTT (21.0-31.0) Seconds PTT Ratio Sodium (136-145) mmol/L Potassium (3.5-5.1) mmol/L Chloride (98-107) mmol/L Carbon Dioxide (21-32) mmol/L Anion Gap (3-11) BUN (7-18) mg/dl Creatinine (0.6-1.4) mg/dl Est Cr Clr Drug Dosing Est GFR ( Amer) ml/min Est GFR (Non-Af Amer) ml/min BUN/Creatinine Ratio (10-20) Glucose (70-99) mg/dl Calcium (8.5-10.1) mg/dl Phosphorus 3.9 (2.5-4.9) mg/dl Magnesium (1.8-2.4) mg/dl Total Bilirubin (0.2-1) mg/dl AST (15-37) U/L ALT (12-78) U/L Alkaline Phosphatase (45-117) U/L Troponin I (0-0.045) ng/ml Total Protein (6.4-8.2) gm/dl Albumin (3.4-5.0) gm/dl Globulin (2.5-4.0) gm/dl Albumin/Globulin Ratio (0.9-2) COVID-19 Eval Order Covid19 at [facility] SARS-CoV-2 (PCR) POSITIVE A* (Negative) 05/29/21 05/29/21 05/29/21 Range/Units 17:39 17:39 17:39 WBC 9.43 (4.8-10.8) K/uL RBC 4.13 L (4.7-6.1) M/uL Hgb 13.4 L (14.0-18.0) g/dL Hct 38.8 L (42-52) % MCV 93.9 (80-100) fL MCH 32.4 (25-34) pg MCHC 34.5 (32-36) g/dL RDW Std Deviation 45.8 (36.4-46.3) fL RDW Coeff of Rocio 13.3 (11.5-14.5) % Plt Count 266 (130-400) K/uL MPV 9.7 (7.4-10.4) fL Immature Gran % (Auto) 0.2 % Neut % (Auto) 73.8 % Lymph % (Auto) 14.8 % Kimble % (Auto) 9.3 % Eos % (Auto) 1.6 % Baso % (Auto) 0.3 % Neut # (Auto) 6.95 H (1.4-6.5) K/uL Lymph # (Auto) 1.40 (1.2-3.4) K/uL Kimble # (Auto) 0.88 H (0.11-0.59) K/uL Eos # (Auto) 0.15 (0-0.5) K/uL Baso # (Auto) 0.03 (0-0.2) K/uL Immature Gran # (Auto) 0.02 (0.00-0.02) K/uL PT 10.7 (9.0-12.0) Seconds INR 1.1 (0.9-1.1) APTT 26.9 (21.0-31.0) Seconds PTT Ratio 1.0 Sodium 138 (136-145) mmol/L Potassium 4.1 (3.5-5.1) mmol/L Chloride 107 (98-107) mmol/L Carbon Dioxide 25 (21-32) mmol/L Anion Gap 6.0 (3-11) BUN 18 (7-18) mg/dl Creatinine 1.24 (0.6-1.4) mg/dl Est Cr Clr Drug Dosing Not Reportable Est GFR ( Amer) 64.6 ml/min Est GFR (Non-Af Amer) 55.7 ml/min BUN/Creatinine Ratio 14.7 (10-20) Glucose 102 H (70-99) mg/dl Calcium 9.2 (8.5-10.1) mg/dl Phosphorus (2.5-4.9) mg/dl Magnesium 2.3 (1.8-2.4) mg/dl Total Bilirubin 0.7 (0.2-1) mg/dl AST 56 H (15-37) U/L ALT 45 (12-78) U/L Alkaline Phosphatase 74 (45-117) U/L Troponin I 0.169 H* (0-0.045) ng/ml Total Protein 7.9 (6.4-8.2) gm/dl Albumin 3.1 L (3.4-5.0) gm/dl Globulin 4.8 H (2.5-4.0) gm/dl Albumin/Globulin Ratio 0.6 L (0.9-2) COVID-19 Eval Order SARS-CoV-2 (PCR) (Negative) Diagnostic Findings Impressions Chest X-Ray 05/29/21 17:22 XR chest 1V portable INDICATION: Dyspnea. TECHNIQUE: Single frontal radiograph of the chest was obtained. Comparison: Comparison is made to chest 2 views 05/26/2021 FINDINGS: Stable postsurgical changes. The cardiomediastinal silhouette is normal. Redemonstration of bilateral airspace opacities which are slightly improved from prior exam. No evidence of pleural effusion or pneumothorax. IMPRESSION: Interval slight improvement in previously noted bilateral airspace opacities compatible with history of viral pneumonia. ACT 112: Negative or not required by law. Electronically signed by: Frederic Silverman M.D. 05/29/2021 6:[address] CHEST With Contrast: Comparison: CT chest 09/04/11. Previous sternotomy, CABG, and mitral valve replacement. Cardiomegaly and coronary artery atherosclerosis. No pericardial effusion. Thoracic aortic atherosclerosis without aneurysm or dissection. No pulmonary embolism. Mild mediastinal and right hilar adenopathy, likely reactive. Widespread and patchy bilateral ground-glass and partly consolidative opacities with mostly peripheral distribution, likely viral pneumonia. Cholecystectomy. No acute osseous findings. Radiologist: Ernestine Craig M.D. Medications Administered Home Medication List Medication Instructions Recorded atorvastatin 40 mg tablet 40 mg PO DAILY #90 tab 09/10/20 losartan 25 mg tablet 25 mg PO DAILY #90 tab 10/02/20 apixaban 5 mg tablet (Eliquis) 5 mg PO BID #60 tab 03/26/21 metoprolol succinate 25 mg 25 mg PO DAILY #90 tab 04/30/21 tablet,extended release 24 hr Supervising Physician Co-Signing Physician Notes Attending addendum: I have physically seen this patient, have supervised the medical residents activities, and agree with the H&P unless as otherwise noted. Assessment and Plan: COVID-19 infection- Positive test on 05/13 and today, 05/29 Decadron 6 mg IV every morning DuoNebs every 2 hours as needed Elevated troponin/hypertension/atrial fibrillation- The patient will be admitted to telemetry for serial cardiac enzymes, serial EKG's, cardiac rhythm monitoring and a 2-D echocardiogram with Dopplers. Troponin 0.169 upon admission, with differential including Covid myocarditis/pericarditis versus non-STEMI versus demand ischemia Continue losartan 25 mg daily, metoprolol succinate 25 mg daily and Eliquis 5 mg p.o. twice daily Hyperlipidemia- Continue atorvastatin 40 mg daily Check a fasting lipid panel Remaining orders and notations as noted Resident Activity Tracking Resident Involvement: Resident Care Provided Care Provided: Adult [facility] Medicine (1) Afib Atrial fibrillation type: unspecified Qualified Code(s): I48.91 - Unspecified atrial fibrillation (2) HTN (hypertension) Hypertension type: primary hypertension Qualified Code(s): I10 - Essential (primary) hypertension
[2021-05-29] MEDS ORDERED: OPTIRAY 320 100ml IV ONE (22:06)
[2021-05-29] MEDS ORDERED: ONDANSETRON INJ 2 MG/ML 2 ML VIAL IV PRN (23:50)
[2021-05-29] MEDS ORDERED: POLYETHYLENE (MIRALAX) 17 GM PACK PO PRN (23:50)
[2021-05-29] MEDS ORDERED: ACETAMINOPHEN 325 MG TAB PO PRN (23:50)
[2021-05-29] MEDS ORDERED: MAGNESIUM HYDROXIDE SUSP 30 ML UDC PO PRN (23:50)
[2021-05-29] MEDS ORDERED: MoRPHine SULFATE 2 MG/ML CARP IV PRN (23:50)
[2021-05-29] MEDS ORDERED: NITROGLYCERIN SL 0.4 MG/TAB TAB SL PRN (23:50)
[2021-05-29] MEDS ORDERED: ALUMINUM/MAGNESIUM SUSP 30 ML UDC PO PRN (23:50)
[2021-05-30] MEDS ORDERED: diphenhydrAMINE Capsule 25 MG CAP PO PRN (00:57)
--- NOTE | 2021-05-30 01:07 | Emergency Department Note ---
Impression & Plan Elevated troponin, COVID-19, Dehydration, Generalized weakness ED Provider Note NAME: MARIETTA DELGADO AGE: 76 SEX: M ARRIVES VIA: Walk-In INFORMANT: Patient, ED PROVIDER(S): Dhruv Angela MD CHIEF COMPLAINT: Weakness. PLAN: Disposition: Admit MEDICAL DECISION MAKING: The patient is a pleasant 76-year-old gentleman with a past medical history of CAD, history of CABG, ischemic cardiomyopathy with EF of 45% who presents to the emergency department for evaluation of generalized weakness that is been ongoing since his COVID-19 diagnosis on 05/14 with symptoms that began several days prior to that. The patient reports his cough congestion and fevers have resolved but his generalized weakness has persisted. He admits to having poor oral intake in terms of food and hydration. He feels as he has lost close to 20 pounds in the past couple of weeks. The presents emergency department referred by their PCP after they took his O2 saturation at home and it read 70% though they admit that they were unsure of if it had a accurate signal or not. Patient does not report any shortness of breath at all. He reports his cough has resolved. On arrival patient is fatigued appearing but no acute distress, afebrile with stable vital signs. His O2 saturation is 95% on room air. His lungs are relatively clear. He does appear clinically dry. EKG without overt acute ischemia and is similar to prior. Chest x-ray shows improvement in his COVID-19 pneumonia. WBC and platelets within normal limits. H/H similar to prior. Chemistry without metabolic acidosis. Electrolytes without significant abnormality. AST mildly elevated at 56, nonspecific. LFTs otherwise unremarkable. Initial troponin elevated at 0.169 without prior elevations. However, given unchanged EKG and the patient denies chest pain or shortness of breath suspect may be related to demand in the setting of the patient's recent COVID-19 illness and associated dehydration. Given patient's elevated troponin the patient was in agreement with plan for admission for further management. Case was discussed with Dr. Murry, [facility] hospitalist, who will evaluate the patient for admission. Triage Nursing notes reviewed and agree them. Prior medical records reviewed Vital Signs: reviewed and remarkable for no significant abnormalities Differential diagnosis: Infection, dehydration, metabolic abnormality, hypo/hyperglycemia, electrolyte disturbance, anemia, hypoxia, cardiac sources, intracerebral event, toxicologic, neurologic, as well as other pathologies. ER treatment provided: See below. Diagnostics interpreted by me: ECG: NSR, 68 bpm, no ectopy, LVH, no overt ST elevation or depression, QTC 461, QRS 134. Similar to February 2021. Cardiac Monitoring: An order for continuous cardiac monitoring was placed and demonstrated NSR, 68 bpm, no ectopy Laboratory studies: See below Imaging studies: See below Consultation(s): Case was discussed with Dr. Murry, [facility] hospitalist, who will evaluate the patient for admission. HPI: The patient is a pleasant 76-year-old gentleman with a past medical history of CAD, history of CABG, ischemic cardiomyopathy with EF of 45% who presents to the emergency department for evaluation of generalized weakness that is been ongoing since his COVID-19 diagnosis on 05/14 with symptoms that began several days prior to that. The patient reports his cough congestion and fevers have resolved but his generalized weakness has persisted. He admits to having poor oral intake in terms of food and hydration. He feels as he has lost close to 20 pounds in the past couple of weeks. The presents emergency department referred by their PCP after they took his O2 saturation at home and it read 70% though they admit that they were unsure of if it had a accurate signal or not. Patient does not report any shortness of breath at all. He reports his cough has resolved. ROS: See above HPI for pertinent positives & negatives. A total of 10 systems reviewed and were otherwise negative. PAST MEDICAL HISTORY:See Below PAST SURGICAL HISTORY:See Below FAMILY HISTORY:See Below SOCIAL HISTORY:See Below HOME MEDICATIONS:See Below ALLERGIES:See Below VITALS:See Below PHYSICAL EXAMINATION: GENERAL: Awake, alert, fatigued-appearing, in no distress HENT: Normocephalic, atraumatic. Oropharynx with dry mucous membranes and otherwise unremarkable. EYES: Normal conjunctiva. Sclera non-icteric. NECK: Supple. No nuchal rigidity. FROM. No JVD. RESPIRATORY: Clear to auscultation. CARDIAC: Regular rate, normal rhythm. Extremities warm and well perfused. Pulses equal. ABDOMEN: Soft, non-distended. No tenderness to palpation. No rebound or guarding. No masses. RECTAL: Deferred. MUSCULOSKELETAL: Chest examination reveals no tenderness. The back is symmetrical on inspection without obvious abnormality. There is no CVA tenderness to palpation. No joint edema. LOWER EXTREMITIES: Calves are equal size bilaterally and non-tender. No edema. No discoloration. NEURO: Normal sensorium. Generalized weakness with no focal sensory or motor deficits noted. SKIN: No rash or jaundice noted. ED COURSE: Critical Care: I have personally spent greater than 35 minutes of critical care time in the direct management of this patient. This includes bedside care, interpretation of diagnostic studies, and testing, discussion with consultants, patient, and family members, and other required patient management activities. This 35 minutes is in excess of all separately billable procedures. Dhruv Angela MD Past Med/Surg History Medical History Acid reflux CAD (coronary artery disease) Colitis COVID-19 History of cardioversion 03/26/21 Dr. Konrad Francis- 1 shock, 50 joules, biphasic Kidney stones Myocardial Infarction Secondary hyperparathyroidism Spontaneous pneumothorax Stage III chronic kidney disease Surgical History H/O heart bypass surgery 02/2010, daley to LAD, saphenous vein graft to om 1 and om 2, saphenous vein graft to diagonal, saphenous vein graft to right coronary artery H/O mitral valve repair 02/2010 History of cholecystectomy (~2017) History of ERCP (~2018) History of tonsillectomy Family History Father Myocardial infarction Stroke Coronary heart disease Depression Mother Diverticulosis Stroke Glaucoma Other Coronary arteriosclerosis Stroke syndrome Denies family history of Ovarian cancer Prostate cancer Breast cancer Colorectal cancer Social History Smoking Status: Former smoker Tobacco Type: Cigarettes Second Hand Exposure: No; Do You Dip or Chew Tobacco: No; Tobacco Cessation Education Requested by Patient: No Hx Alcohol Use: Yes Alcohol type: beer and other Alcohol Intake Frequency: 4 or More x per/Week Alcohol Intake Frequency Comment: daily - 1 beer and 1 cocktail Hx Substance Use: No Preferred Language: Kiswahili Communication Ability: Effective Visual Impairment: No Limitations Hearing Ability: Use of Hearing Aid Field 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: No Beliefs That Will Affect Care: None marital status: Single Current Living Situation: Alone Current Living Situation Comment: has a cat current occupational status: retired Other Information That Helps Us Care for You: No Feels Safe at Home: Yes Safety Concerns: Feels Safe At This Time Childhood Exposure to Second-Hand Smoke: Yes Dental Care, Regularly: Yes Physical Activity Frequency: 1-2 Times per Week Seatbelt Use: always Sunscreen Use: Yes Assistive Devices: Glasses and Hearing Aid - Bilateral Allergies Allergies Allergy/AdvReac Type Severity Reaction Status Date / Time No Known Drug Allergies Allergy Unknown Rash Verified 05/29/21 20:34 SUNLIGHT Allergy Unknown UNKNOWN Uncoded 05/29/21 20:34 Home Meds Previous Rx's Medication Instructions Recorded atorvastatin 40 mg tablet 40 mg PO DAILY #90 tab 09/10/20 losartan 25 mg tablet 25 mg PO DAILY #90 tab 10/02/20 apixaban 5 mg tablet (Eliquis) 5 mg PO BID #60 tab 03/26/21 metoprolol succinate 25 mg 25 mg PO DAILY #90 tab 04/30/21 tablet,extended release 24 hr Results & Data (ED) Vital Signs Vital Signs - 24 hr 05/29/21 15:45 05/29/21 17:23 05/29/21 17:43 Temperature 36.0 C L Temperature Source Temporal Artery Scan Pulse Rate 90 Pulse Rate [Right Finger] 84 Pulse Rate from SpO2 Sensor Pulse Rhythm [Right Finger] Regular Respiratory Rate 20 16 Respiratory Effort / Characteristics Non-Labored Non-Labored Spontaneous Respiratory Depth Normal Normal Blood Pressure 123/74 Blood Pressure Mean 90 Pulse Oximetry 94 96 Oxygen Delivery Method Room Air Room Air Sepsis Recent Fever Within 48 Hours No Sepsis New/Unexplained Change in Mental Status N/A Sepsis Action Taken by Nursing No Action Required 05/29/21 18:30 05/29/21 18:35 05/29/21 19:00 Temperature Temperature Source Pulse Rate 81 83 69 Pulse Rate [Right Finger] Pulse Rate from SpO2 Sensor 82 73 Pulse Rhythm [Right Finger] Respiratory Rate 24 16 24 Respiratory Effort / Characteristics Respiratory Depth Blood Pressure 150/82 H 127/74 Blood Pressure Mean 104 91 Pulse Oximetry 96 96 96 Oxygen Delivery Method Room Air Room Air Room Air Sepsis Recent Fever Within 48 Hours Sepsis New/Unexplained Change in Mental Status Sepsis Action Taken by Nursing 05/29/21 19:31 05/29/21 20:00 05/29/21 20:30 Temperature Temperature Source Pulse Rate 88 75 71 Pulse Rate [Right Finger] Pulse Rate from SpO2 Sensor 88 76 71 Pulse Rhythm [Right Finger] Respiratory Rate 25 H 22 20 Respiratory Effort / Characteristics Respiratory Depth Blood Pressure 97/42 L 136/79 131/71 Blood Pressure Mean 60 98 91 Pulse Oximetry 96 96 96 Oxygen Delivery Method Room Air Room Air Room Air Sepsis Recent Fever Within 48 Hours Sepsis New/Unexplained Change in Mental Status Sepsis Action Taken by Nursing 05/29/21 21:00 Temperature Temperature Source Pulse Rate 85 Pulse Rate [Right Finger] Pulse Rate from SpO2 Sensor 84 Pulse Rhythm [Right Finger] Respiratory Rate 17 Respiratory Effort / Characteristics Respiratory Depth Blood Pressure 148/77 H Blood Pressure Mean 100 Pulse Oximetry 95 Oxygen Delivery Method Room Air Sepsis Recent Fever Within 48 Hours Sepsis New/Unexplained Change in Mental Status Sepsis Action Taken by Nursing Laboratory Data Attestation: I reviewed the patient's lab results. Result diagrams: 05/29/21 17:39 05/29/21 17:39 Lab Results 05/29/21 05/29/21 05/29/21 Range/Units 17:39 17:39 17:39 WBC 9.43 (4.8-10.8) K/uL RBC 4.13 L (4.7-6.1) M/uL Hgb 13.4 L (14.0-18.0) g/dL Hct 38.8 L (42-52) % MCV 93.9 (80-100) fL MCH 32.4 (25-34) pg MCHC 34.5 (32-36) g/dL RDW Std Deviation 45.8 (36.4-46.3) fL RDW Coeff of Rocio 13.3 (11.5-14.5) % Plt Count 266 (130-400) K/uL MPV 9.7 (7.4-10.4) fL Immature Gran % (Auto) 0.2 % Neut % (Auto) 73.8 % Lymph % (Auto) 14.8 % Liberty % (Auto) 9.3 % Eos % (Auto) 1.6 % Baso % (Auto) 0.3 % Neut # (Auto) 6.95 H (1.4-6.5) K/uL Lymph # (Auto) 1.40 (1.2-3.4) K/uL Liberty # (Auto) 0.88 H (0.11-0.59) K/uL Eos # (Auto) 0.15 (0-0.5) K/uL Baso # (Auto) 0.03 (0-0.2) K/uL Immature Gran # (Auto) 0.02 (0.00-0.02) K/uL PT 10.7 (9.0-12.0) Seconds INR 1.1 (0.9-1.1) APTT 26.9 (21.0-31.0) Seconds PTT Ratio 1.0 Sodium 138 (136-145) mmol/L Potassium 4.1 (3.5-5.1) mmol/L Chloride 107 (98-107) mmol/L Carbon Dioxide 25 (21-32) mmol/L Anion Gap 6.0 (3-11) BUN 18 (7-18) mg/dl Creatinine 1.24 (0.6-1.4) mg/dl Est Cr Clr Drug Dosing Not Reportable Est GFR ( Amer) 64.6 ml/min Est GFR (Non-Af Amer) 55.7 ml/min BUN/Creatinine Ratio 14.7 (10-20) Glucose 102 H (70-99) mg/dl Calcium 9.2 (8.5-10.1) mg/dl Phosphorus (2.5-4.9) mg/dl Magnesium 2.3 (1.8-2.4) mg/dl Total Bilirubin 0.7 (0.2-1) mg/dl AST 56 H (15-37) U/L ALT 45 (12-78) U/L Alkaline Phosphatase 74 (45-117) U/L Troponin I 0.169 H* (0-0.045) ng/ml Total Protein 7.9 (6.4-8.2) gm/dl Albumin 3.1 L (3.4-5.0) gm/dl Globulin 4.8 H (2.5-4.0) gm/dl Albumin/Globulin Ratio 0.6 L (0.9-2) COVID-19 Eval Order SARS-CoV-2 (PCR) (Negative) 05/29/21 05/29/21 05/29/21 Range/Units 17:39 19:10 19:10 WBC (4.8-10.8) K/uL RBC (4.7-6.1) M/uL Hgb (14.0-18.0) g/dL Hct (42-52) % MCV (80-100) fL MCH (25-34) pg MCHC (32-36) g/dL RDW Std Deviation (36.4-46.3) fL RDW Coeff of Rocio (11.5-14.5) % Plt Count (130-400) K/uL MPV (7.4-10.4) fL Immature Gran % (Auto) % Neut % (Auto) % Lymph % (Auto) % Liberty % (Auto) % Eos % (Auto) % Baso % (Auto) % Neut # (Auto) (1.4-6.5) K/uL Lymph # (Auto) (1.2-3.4) K/uL Liberty # (Auto) (0.11-0.59) K/uL Eos # (Auto) (0-0.5) K/uL Baso # (Auto) (0-0.2) K/uL Immature Gran # (Auto) (0.00-0.02) K/uL PT (9.0-12.0) Seconds INR (0.9-1.1) APTT (21.0-31.0) Seconds PTT Ratio Sodium (136-145) mmol/L Potassium (3.5-5.1) mmol/L Chloride (98-107) mmol/L Carbon Dioxide (21-32) mmol/L Anion Gap (3-11) BUN (7-18) mg/dl Creatinine (0.6-1.4) mg/dl Est Cr Clr Drug Dosing Est GFR ( Amer) ml/min Est GFR (Non-Af Amer) ml/min BUN/Creatinine Ratio (10-20) Glucose (70-99) mg/dl Calcium (8.5-10.1) mg/dl Phosphorus 3.9 (2.5-4.9) mg/dl Magnesium (1.8-2.4) mg/dl Total Bilirubin (0.2-1) mg/dl AST (15-37) U/L ALT (12-78) U/L Alkaline Phosphatase (45-117) U/L Troponin I (0-0.045) ng/ml Total Protein (6.4-8.2) gm/dl Albumin (3.4-5.0) gm/dl Globulin (2.5-4.0) gm/dl Albumin/Globulin Ratio (0.9-2) COVID-19 Eval Order Covid19 at [facility] SARS-CoV-2 (PCR) POSITIVE A* (Negative) Administered Medications Discontinued Medications Famotidine (Pepcid 20mg Iv Push) 20 mg in 5 mls @ 2.5 mls/min IV NOW STA Stop: 05/29/21 18:48 Last Admin: 05/29/21 19:08 Dose: 2.5 mls/min Documented by: [id number] Sodium Chloride (Nss) 500 mls @ 999 mls/hr IV .Q31M ONE Stop: 05/29/21 19:19 Last Infusion: 05/29/21 19:22 Dose: 0 mls/hr Documented by: [id number] Admin: 05/29/21 18:51 Dose: 999 mls/hr Documented by: [id number] Ioversol (Optiray 320 100ml) 95 ml IV ONCE ONE Stop: 05/29/21 22:07 Last Admin: 05/29/21 22:07 Dose: 95 ml Documented by: [id number] Imaging Data Radiologist's Impression: Chest X-Ray 05/29/21 17:22 XR chest 1V portable INDICATION: Dyspnea. TECHNIQUE: Single frontal radiograph of the chest was obtained. Comparison: Comparison is made to chest 2 views 05/26/2021 FINDINGS: Stable postsurgical changes. The cardiomediastinal silhouette is normal. Redem onstration of bilateral airspace opacities which are slightly improved from prior exam. No evidence of pleural effusion or pneumothorax. IMPRESSION: Interval slight improvement in previously noted bilateral airspace opacities compatible with history of viral pneumonia. ACT 112: Negative or not required by law. Electronically signed by: Frederic Silverman M.D. 05/29/2021 6:57 PM Discharge Plan Visit Data Chief Complaint: Abnormal Labs/Diagnostic Testing Stated Complaint: LOW BLOOD OX LEVELS ED Provider: Dhruv Angela Discharge Problem: Elevated troponin, COVID-19, Dehydration, Generalized weakness Patient Disposition: Admitted As Inpatient Discharge Instructions Interventions: ED Discharge Assessment Last Done: 05/29/21 23:40
--- NOTE | 2021-05-30 08:06 | CT Scan Report ---
CHEST CT WITH CONTRAST CT DOSE: 485.05 mGy.cm HISTORY: elevated troponin in the setting of COVID-19 TECHNIQUE: Multiaxial CT images of the chest were performed following the intravenous administration of contrast. A dose lowering technique was utilized adhering to the principles of ALARA. COMPARISON: Chest CT 09/04/2011. FINDINGS: No pneumothorax. No pleural effusions. The central airways are patent. Mild emphysema is no andrey. Biapical pleural-parenchymal scarlike densities are not significantly changed. Scattered multifo faviola irregular airspace opacities are noted. These demonstrate a peripheral predominance and favor a v iral pneumonia. This is most pronounced within the right upper lobe. There is an indeterminate 6 mm n odule within the left lower lobe on image 256. No fractures within the visualized osseous structures. Mild mediastinal and bilateral hilar lymphadenopathy. The heart is borderline enlarged. Limited view s of the upper abdomen demonstrate a normal liver, spleen, and adrenal glands. Prior cholecystectomy. Normal esophagus. Normal caliber thoracic aorta with no evidence for dissection. The central pulmona ry arteries are patent. Post sternotomy changes and a mitral valve prosthesis are noted. IMPRESSION: 1. Scattered multifocal airspace opacities consistent with a viral pneumonia. 2. A 6 mm indeterminate pulmonary nodule within the left lower lobe. Please refer to the chart below for recommended follow-up. 3. Mild mediastinal and bilateral hilar lymphadenopathy. This may be reactive to the suspected pneumo miracle.. 4. Mild emphysema. ACT 112: Negative or not required by law. Electronically signed by: Sd Regalado M.D. 05/30/2021 8:05 AM
[2021-05-30] MEDS ORDERED: GADOBUTROL 65ML VIAL IV ONE (10:42)
[2021-05-30] MEDS: dexAMETHasone 6 MG in SYRINGE 0 ML IV SCH (10:45)
--- NOTE | 2021-05-30 10:49 | Magnetic Resonance Report ---
MR ANGIOGRAM OF THE BRAIN CLINICAL HISTORY: Left-sided weakness. COMPARISON STUDY: MRI of the brain performed concurrently on 05/30/2021.. TECHNIQUE: 3-D [id number] MR angiography of the intracranial circulation is performed. 3-D tumble views are created and assessed. IV contrast was not administered for this examination. FINDINGS: The internal carotid arteries are widely patent bilaterally, as are the anterior and middl e cerebral arteries. The vertebrobasilar system and posterior cerebral arteries are widely patent. Th e left vertebral artery is dominant. There is no aneurysm, high-grade stenosis, or focal vessel cuto ff seen throughout the intracranial circulation. IMPRESSION: Unremarkable MR angiogram of the brain. ACT 112: Negative or not required by law. Electronically signed by: Severino Montoya M.D. 05/30/2021 10:47 AM
--- NOTE | 2021-05-30 10:55 | Magnetic Resonance Report ---
Brain MRI WITH AND WITHOUT CONTRAST HISTORY: left sided weakness, drift TECHNIQUE: Multiplanar multisequence MRI of the brain was performed both before and after the intrave nous administration of contrast. COMPARISON STUDY: None. FINDINGS: Multiple scattered small foci of restricted diffusion seen within the white matter of the b ilateral cerebral hemispheres, right frontotemporal region, left occipital lobe, and the left cerebel lar hemisphere consistent with acute infarcts. This may represent embolic infarcts or possibly booth hed infarcts if the patient has had a recent episode of hypoperfusion/hypotension. There is associate d multifocal areas of cytotoxic edema seen scattered throughout the majority of the cerebral hemisphe res at the areas of infarct. The mastoid air cells are clear. The major vascular flow-voids at the sk ull base are well-maintained. The ventricles and sulci demonstrate mild age-related involutional loera ges. There is mild mucosal thickening within the right frontal sinus. The orbits are unremarkable. Po stcontrast sequences show no areas of abnormal enhancement. IMPRESSION: Multiple scattered small foci of restricted diffusion seen within the white matter of the bilateral c erebral hemispheres, right frontotemporal region, left occipital lobe, and the left cerebellar hemisp here consistent with acute infarcts. This may represent embolic infarcts or possibly watershed infarc ts if the patient has had a recent episode of hypoperfusion/hypotension. ACT 112: Negative or not required by law. Electronically signed by: Sd Regalado M.D. 05/30/2021 10:54 AM
[2021-05-30] MEDS ORDERED: PHARMACIST DISCHARGE MED REC CONSULT PRN (10:56)
--- NOTE | 2021-05-30 11:10 | Magnetic Resonance Report ---
MR angio neck wo/w con CLINICAL INDICATION: MN ^weakness left arm, left leg. TECHNIQUE: 3D time of flight MRA of the head and neck was performed without and with intravenous cont rast administration. COMPARISON: None at our institution at the time of this dictation. Findings/Impression: Motion artifact degrades images at the origins of the carotid and vertebral arteries. Flow signal con sistent with patency is shown within the common carotid, cervical segments of the internal carotid, e xternal carotid, and vertebral arteries. The left vertebral artery is dominant. No aneurysm, dissecti on, hemodynamically significant flow stenosis, nor occlusion is present. Assessment of stenosis of the internal carotid arteries is based on NASCET criteria. ACT 112: Negative or not required by law. Electronically signed by: Frederic Silverman M.D. 05/30/2021 11:09 AM
--- NOTE | 2021-05-30 11:19 | Hospitalist Progress Note ---
Date of Service May 30, 2021 Assessment & Plan (1) Embolic stroke: Plan: symptoms for 1 week, left hand weakness, clumsiness and some blurred vision MRI brain: scattered areas concerning acute stroke, right frontotemporal, left occipital, left cerebellum MRI head/neck: no significant findings will order echo with bubble study, of note, he had a LILIANA cardioversion 03/26/21, showed ligation of left atrial appendage and no intracardiac thrombus at that time continue Eliquis 5mg BID add aspirin 81mg daily continue Lipitor 40mg daily check fasting lipid profile, HbA1c consult neurology consult PT/OT/speech (2) COVID-19: Plan: COVID-19: -Initially positive for COVID-19 on 05/13, with repeat testing on 05/29 -CT chest demonstrating widespread patchy bilateral ground glass opacities with peripheral distribution consistent with prior pneumonia stop dexamethasone, he is 97% on room air, breathing well, unlikely to develop worsening pneumonia at this time (3) Elevated troponin: Plan: minimal bump cycle troponins, echo no chest pain (4) S/P CABG x 3: Plan: many years ago continue metoprolol, Lipitor no chest pain (5) HTN (hypertension): Plan: BP controlled with metoprolol, Losartan (6) Afib: Plan: Atrial fibrillation/flutter LILIANA cardioversion 03/26/[address] Francis has been on Eliquis 5mg BID metoprolol for rate control NSR on EKG and monitor at this time Plan: consult neurology, PT/OT anticipate he can go home tomorrow Admission and Anticipated Discharge Date Admission Date: May 29, 2021 Subjective patient with 1 week of weakness on left side he is right handed, noticed one week ago that he was having weakness in left hand, clumsiness, knocking things over that he tried to reach for no issues with the right hand or arm, no weakness in legs, no issues with balance he has not had issues with speaking or eating/swallowing he does admit that his vision has been blurry when trying to read, could not tell me if it was just left or right visual field no falls at home he has also had about a week of COVID symptoms with fever/chills, dry cough, loss of taste/smell and some diarrhea not eating or drinking very well the past few days reviewing the chart, he has h/o atrial flutter, he had a LILIANA cardioversion back in February 2021 the left atrial appendage had been ligated on echo, there was no evidence of c ardiac thrombus, successful cardioversion he was started on Eliquis 5mg BID and aspirin was stopped at that time he says he is compliant with the Eliquis, never misses a dose I ordered MRI brain and MRA head/neck this morning due to his symptoms MRI brain: Multiple scattered small foci of restricted diffusion seen within the white matter of the bilateral cerebral hemispheres, right frontotemporal region, left occipital lobe, and the left cerebellar hemisphere consistent with acute infarcts placed stroke order set, consulted neurology, PT/OT Review of Systems Review of Systems: All systems reviewed & are unremarkable except as noted in Subjective Physical Exam Physical Exam: General: well developed, well nourished, no acute distress, comfortable Neck: supple, trachea midline, normal thyroid Lungs: clear to auscultation bilaterally, normal respiratory effort, no accessory muscle use, no distress Heart: regular S1 and S2, no murmur, peripheral pulses normal, capillary refill normal, no edema Abdomen: soft, NT, ND, + BS, no hepatomegaly, normal to percussion Extremities: normal in appearance, no cyanosis, no petechiae, strength is 5/5 bilaterally Neuro: awake, cooperative, moves all extremities, CN II-XII intact, sensation in extremities intact, normal speech subtle nystagmus with rightward gaze 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, left arm 4/5, poor coordination left arm, no pronator drift Skin: warm, dry, no rash, normal turgor Psych: Awake, alert oriented x 3, euthymic affect Results & Data Results & Data ([facility]) Vital Signs (Past 12 Hours) Vital Signs Temp Pulse Pulse Resp BP BP BP 05/30/21 10:30 36.9 C 76 16 149/74 H 05/30/21 07:19 37.0 C 72 18 125/66 05/30/21 03:39 36.9 C 61 20 126/68 05/30/21 01:20 58 L 05/29/21 23:50 36.7 C 76 20 138/68 05/29/21 23:30 53 L 16 127/67 Pulse Ox Pulse Ox 05/30/21 10:30 96 05/30/21 07:19 93 05/30/21 03:39 94 05/30/21 01:20 05/29/21 23:50 95 95 05/29/21 23:30 96 Laboratory Results Laboratory Results - last 24 hr 05/29/21 05/29/21 05/29/21 17:39 17:39 17:39 WBC 9.43 RBC 4.13 L Hgb 13.4 L Hct 38.8 L MCV 93.9 MCH 32.4 MCHC 34.5 RDW Std Deviation 45.8 RDW Coeff of Rocio 13.3 Plt Count 266 MPV 9.7 Immature Gran % (Auto) 0.2 Neut % (Auto) 73.8 Lymph % (Auto) 14.8 [place] % (Auto) 9.3 Eos % (Auto) 1.6 Baso % (Auto) 0.3 Neut # (Auto) 6.95 H Lymph # (Auto) 1.40 [place] # (Auto) 0.88 H Eos # (Auto) 0.15 Baso # (Auto) 0.03 Immature Gran # (Auto) 0.02 PT 10.7 INR 1.1 APTT 26.9 PTT Ratio 1.0 Sodium 138 Potassium 4.1 Chloride 107 Carbon Dioxide 25 Anion Gap 6.0 BUN 18 Creatinine 1.24 Est Cr Clr Drug Dosing Not Reportable Est GFR ( Amer) 64.6 Est GFR (Non-Af Amer) 55.7 BUN/Creatinine Ratio 14.7 Glucose 102 H Calcium 9.2 Phosphorus Magnesium 2.3 Total Bilirubin 0.7 AST 56 H ALT 45 Alkaline Phosphatase 74 Troponin I 0.169 H* Total Protein 7.9 Albumin 3.1 L Globulin 4.8 H Albumin/Globulin Ratio 0.6 L COVID-19 Eval Order SARS-CoV-2 (PCR) 05/29/21 05/29/21 05/29/21 17:39 19:10 19:10 WBC RBC Hgb Hct MCV MCH MCHC RDW Std Deviation RDW Coeff of Rocio Plt Count MPV Immature Gran % (Auto) Neut % (Auto) Lymph % (Auto) [place] % (Auto) Eos % (Auto) Baso % (Auto) Neut # (Auto) Lymph # (Auto) [place] # (Auto) Eos # (Auto) Baso # (Auto) Immature Gran # (Auto) PT INR APTT PTT Ratio Sodium Potassium Chloride Carbon Dioxide Anion Gap BUN Creatinine Est Cr Clr Drug Dosing Est GFR ( Amer) Est GFR (Non-Af Amer) BUN/Creatinine Ratio Glucose Calcium Phosphorus 3.9 Magnesium Total Bilirubin AST ALT Alkaline Phosphatase Troponin I Total Protein Albumin Globulin Albumin/Globulin Ratio COVID-19 Eval Order Covid19 at [facility] SARS-CoV-2 (PCR) POSITIVE A* 05/30/21 05/30/21 00:30 07:49 WBC RBC Hgb Hct MCV MCH MCHC RDW Std Deviation RDW Coeff of Rocio Plt Count MPV Immature Gran % (Auto) Neut % (Auto) Lymph % (Auto) [place] % (Auto) Eos % (Auto) Baso % (Auto) Neut # (Auto) Lymph # (Auto) [place] # (Auto) Eos # (Auto) Baso # (Auto) Immature Gran # (Auto) PT INR APTT PTT Ratio Sodium Potassium Chloride Carbon Dioxide Anion Gap BUN Creatinine Est Cr Clr Drug Dosing Est GFR ( Amer) Est GFR (Non-Af Amer) BUN/Creatinine Ratio Glucose Calcium Phosphorus Magnesium Total Bilirubin AST ALT Alkaline Phosphatase Troponin I 0.164 H* 0.127 H* Total Protein Albumin Globulin Albumin/Globulin Ratio COVID-19 Eval Order SARS-CoV-2 (PCR) Diagnostic Findings Brain MRI WITH AND WITHOUT CONTRAST HISTORY: left sided weakness, drift TECHNIQUE: Multiplanar multisequence MRI of the brain was performed both before and after the intravenous administration of contrast. COMPARISON STUDY: None. FINDINGS: Multiple scattered small foci of restricted diffusion seen within the white matter of the bilateral cerebral hemispheres, right frontotemporal region, left occipital lobe, and the left cerebellar hemisphere consistent with acute infarcts. This may represent embolic infarcts or possibly watershed infarcts if the patient has had a recent episode of hypoperfusion/hypotension. There is associated multifocal areas of cytotoxic edema seen scattered throughout the majority of the cerebral hemispheres at the areas of infarct. The mastoid air cells are clear. The major vascular flow-voids at the skull base are well- maintained. The ventricles and sulci demonstrate mild age-related involutional changes. There is mild mucosal thickening within the right frontal sinus. The orbits are unremarkable. Postcontrast sequences show no areas of abnormal enhancement. IMPRESSION: Multiple scattered small foci of restricted diffusion seen within the white matter of the bilateral cerebral hemispheres, right frontotemporal region, left occipital lobe, and the left cerebellar hemisphere consistent with acute infarcts. This may represent embolic infarcts or possibly watershed infarcts if the patient has had a recent episode of hypoperfusion/hypotension. Medications Administered Current Inpatient Medications Acetaminophen (Acetaminophen 325 Mg Tab) 650 mg PO Q4H PRN PRN Reason: Pain or Fever Stop: 06/28/21 23:49 Al Hydrox/Mg Hydrox/Simethicone (Aluminum/Magnesium Susp 30 Ml Udc) 15 ml PO Q4H PRN PRN Reason: Dyspepsia Stop: 06/28/21 23:49 Apixaban (Apixaban 5 Mg Tablet) 5 mg PO BID GLORIA Stop: 06/29/21 08:59 Last Admin: 05/30/21 11:33 Dose: 5 mg Documented by: Aspirin (Aspirin 81 Mg Ectab) 81 mg PO QAM GLORIA Stop: 06/29/21 10:59 Last Admin: 05/30/21 11:36 Dose: 81 mg Documented by: Atorvastatin Calcium (Atorvastatin 40 Mg Tab) 40 mg PO DAILY GLORIA Stop: 06/29/21 08:59 Last Admin: 05/30/21 11:33 Dose: 40 mg Documented by: Diphenhydramine HCl (Diphenhydramine Capsule 25 Mg Cap) 25 mg PO HS PRN PRN Reason: Sleep Stop: 06/29/21 00:56 Dexamethasone 6 mg/ Syringe 1.5 mls @ 1 mls/min IV DAILY GLORIA Stop: 06/09/21 08:59 Last Admin: 05/30/21 10:45 Dose: 1 mls/min Documented by: Losartan Potassium (Losartan Potassium 25 Mg Tab) 25 mg PO DAILY GLORIA Stop: 06/29/21 08:59 Last Admin: 05/30/21 11:32 Dose: 25 mg Documented by: Magnesium Hydroxide (Magnesium Hydroxide Susp 30 Ml Udc) 30 ml PO Q12H PRN PRN Reason: Constipation Stop: 06/28/21 23:49 Metoprolol Succinate (Metoprolol Succ 25mg Ext Rel Tab) 25 mg PO DAILY GLORIA Stop: 06/29/21 08:59 Last Admin: 05/30/21 11:33 Dose: 25 mg Documented by: Miscellaneous Information (Pharmacist Discharge Med Rec Consult) 1 ea N/A UD PRN PRN Reason: Consult Stop: 06/29/21 10:55 Morphine Sulfate (Morphine Sulfate 2 Mg/Ml Carp) 2 mg IV Q30M PRN PRN Reason: Chest Pain Stop: 06/12/21 23:49 Nitroglycerin (Nitroglycerin Sl 0.4 Mg/Tab Tab) 0.4 mg SL UD PRN PRN Reason: Chest Pain Stop: 06/28/21 23:49 Ondansetron HCl (Ondansetron Inj 2 Mg/Ml 2 Ml Vial) 4 mg IV Q6H PRN PRN Reason: Nausea Stop: 06/28/21 23:49 Polyethylene Glycol (Polyethylene (Miralax) 17 Gm Pack) 17 gm PO DAILY PRN PRN Reason: Constipation Stop: 06/28/21 23:49 PG Care Time/CCT Total # of Minutes Spent Total Time Spent: 35 Total Time Spent with Patient: Total time spent is greater than 50% in coordination of care (as documented) at patient's floor/unit and/or counseling patient: Coding Level of Care Code 08986 Subseq Hosp Care Lvl 3 (25 - SIGNIFICANT, SEPARATELY IDENTIFIABLE ) Diagnoses COVID-19 U07.1 Elevated troponin R77.8 S/P CABG x 3 Z95.1 HTN (hypertension) I10 Hypertension type: primary hypertension Afib I48.91 Atrial fibrillation type: unspecified Embolic stroke I63.9 (1) Afib Atrial fibrillation type: unspecified Qualified Code(s): I48.91 - Unspecified atrial fibrillation (2) HTN (hypertension) Hypertension type: primary hypertension Qualified Code(s): I10 - Essential (primary) hypertension
[2021-05-30] MEDS: LOSARTAN POTASSIUM 25 MG TAB PO SCH (11:32)
[2021-05-30] MEDS: ATORVASTATIN 40 MG TAB PO SCH (11:33)
[2021-05-30] MEDS: METOPROLOL SUCC 25MG EXT REL TAB PO SCH (11:33)
[2021-05-30] MEDS: APIXABAN 5 MG TABLET PO SCH ×2 (11:33→22:10)
[2021-05-30] MEDS: ASPIRIN 81 MG ECTAB PO SCH (11:36)
--- NOTE | 2021-05-30 12:59 | Neurology Consultation ---
Date of Consultation May 30, 2021 Assessment & Plan (1) Embolic stroke: Embolic stroke within the bilateral cerebral hemispheres, right frontotemporal region, left occipital lobe, and left cerebellar hemisphere. Largest area of stroke burden affects the right frontotemporal region and is likely responsible for the observed left hemiparesis. I do not find evidence of an obvious visual field deficit in spite of the left occipital lobe stroke. There is a punctate acute ischemic stroke within the inferior left cerebellar hemisphere that probably does not result in any significant ipsilateral ataxia although difficult to evaluate in the context of his left hemiparesis. There is minimal acute ischemic stroke burden within the left lua radiata that does not appear to be resulting in any contralateral motor or sensory signs. Stroke risk factors for this patient include atrial fibrillation and COVID-19 infection. Patient should continue with Eliquis and atorvastatin. Low-dose aspirin has been added which is reasonable. Patient is also on dexamethasone in light of COVID-19 infection which is also indicated. Systolic blood pressure goal 140 to 160 mmHg/permissive hypertension although patient's blood pressure may run lower than this naturally and appears to be stable. PT/OT consultations. I expect his left upper extremity weakness to gradually improve with therapy. However, recovery may be incomplete and he may end up having some mild residual difficulty with motor control of the left hand. Patient should also have outpatient visual field testing completed. No further immediate recommendations. 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 His history is notable for coronary artery disease, CABG, ischemic cardiomyopathy, stage III kidney disease, and atrial fibrillation. He is prescribed Eliquis, atorvastatin, losartan, and metoprolol as an outpatient. He presented to the emergency department yesterday complaining of cough, fevers, poor p.o. intake, weight loss, and weakness, especially the left arm which began about 1 week ago. Notes clumsiness of the hand, denies significant difficulty with the leg or walking. No associated headache or vision loss. A brain MRI was completed earlier today that revealed multiple scattered small foci of restricted diffusion within the white matter of the bilateral cerebral hemispheres, right frontotemporal region, left occipital lobe, left cerebellar hemisphere, consistent with acute infarcts, probably embolic although watershed infarcts not completely excluded. MRA of the head and neck unremarkable. I did review the images as well as the radiologist's interpretation of these tests. An electrocardiogram completed today revealed a normal sinus rhythm with sinus arrhythmia, left axis deviation, left ventricular hypertrophy, 71 bpm. Patient underwent cardioversion this past February with Dr. Francis. Electrocardiogram completed on March 26, 2021 had revealed atrial fibrillation with rapid ventricular response. An echocardiogram completed March 25, 2021 had revealed borderline reduced left ventricular systolic function and borderline left atrial enlargement. This morning, the patient continues to complain of left upper extremity weakness and clumsiness. Denies associated vision loss or headache. Denies any significant weakness for the leg. No difficulty swallowing. Allergies Allergy/AdvReac Type Severity Reaction Status Date / Time No Known Drug Allergies Allergy Unknown Rash Verified 05/29/21 20:34 SUNLIGHT Allergy Unknown UNKNOWN Uncoded 05/29/21 20:34 Home Medications Medication Instructions Recorded Confirmed Type atorvastatin 40 mg tablet 40 mg PO DAILY #90 tab 09/10/20 05/29/21 Rx losartan 25 mg tablet 25 mg PO DAILY #90 tab 10/02/20 05/29/21 Rx apixaban 5 mg tablet (Eliquis) 5 mg PO BID #60 tab 03/26/21 05/29/21 Rx metoprolol succinate 25 mg 25 mg PO DAILY #90 tab 04/30/21 05/29/21 Rx tablet,extended release 24 hr Patient History Medical History Acid reflux CAD (coronary artery disease) Colitis COVID-19 History of cardioversion 03/26/21 Dr. Konrad Francis- 1 shock, 50 joules, biphasic Kidney stones Myocardial Infarction Secondary hyperparathyroidism Spontaneous pneumothorax Stage III chronic kidney disease Surgical History H/O heart bypass surgery 02/2010, daley to LAD, saphenous vein graft to om 1 and om 2, saphenous vein graft to diagonal, saphenous vein graft to right coronary artery H/O mitral valve repair 02/2010 History of cholecystectomy (~2017) History of ERCP (~2017) History of tonsillectomy Family History Father Myocardial infarction Stroke Coronary heart disease Depression Mother Diverticulosis Stroke Glaucoma Other Coronary arteriosclerosis Stroke syndrome Denies family history of Ovarian cancer Prostate cancer Breast cancer Colorectal cancer Social History Smoking Status: Former smoker Tobacco Type: Cigarettes Second Hand Exposure: No; Do You Dip or Chew Tobacco: No; Tobacco Cessation Education Requested by Patient: No Hx Alcohol Use: Yes Alcohol type: beer and other Alcohol Intake Frequency: 4 or More x per/Week Alcohol Intake Frequency Comment: daily - 1 beer and 1 cocktail Hx Substance Use: No Preferred Language: Bulgarian Communication Ability: Effective Visual Impairment: No Limitations Hearing Ability: Use of Hearing Aid Review Scheduling Coordinator Required: No Beliefs That Will Affect Care: None marital status: Single Current Living Situation: Alone Current Living Situation Comment: has a cat current occupational status: retired Other Information That Helps Us Care for You: No Feels Safe at Home: Yes Safety Concerns: Feels Safe At This Time Childhood Exposure to Second-Hand Smoke: Yes Dental Care, Regularly: Yes Physical Activity Frequency: 1-2 Times per Week Seatbelt Use: always Sunscreen Use: Yes Assistive Devices: Glasses and Hearing Aid - Bilateral Review of Systems Constitutional: no fever and no chills Eyes: no blind spots and no diplopia Ear, Nose, Mouth, Throat: no ear pain and no hearing loss Respiratory: no cough and no dyspnea Cardiovascular: no chest pain and no palpitations Gastrointestinal: no constipation and no diarrhea/loose stools Genitourinary: no urinary incontinence or no urinary urgency Musculoskeletal: no muscle weakness and no muscle atrophy Integumentary: no rash and no lesions Neurologic: as per Subjective / HPI and + localized weakness; no headache(s) and no memory loss Psychiatric: no behavioral changes, no depression, no abnormal sleep pattern and no anxiety Hematologic / Lymphatic: no easy bruising and no lymphadenopathy Exam (Neuro) Constitutional: well developed and well nourished; no acute distress Eyes: normal visual carrera by confrontation, PERRL, normal accommodation and EOM intact bilaterally; no fundoscopic abnormality, no nystagmus and no papilledema Cardiovascular: Vessels: normal carotid upstroke; no carotid bruit Neurologic: Oriented to:: Person, Place and Time Memory: Short Term Intact and Remote Intact Attention: Span Intact and Concentration Intact Language: Naming Objects and Repeating Phrases Speech Fluency: negative Dysarthria Speech Aphasia: negative Aphasia Fund of Knowledge: Current Events, Past History and Vocabulary Cranial Nerves: Normal II (Visual carrera full to confrontation, visual acuity normal), III, IV, (Pupils equal round reactive to light and accommodation, eye movements normal), V (Facial sensation intact), VII (There is no facial droop or weakness), VIII (Hearing intact), IX, X (Palate elevates to midline), XI (Shoulder shrug intact) and XII (Tongue protrudes to midline) Motor Strength: negative Normal Lower Extremities (Mild weakness for the left lower extremity noted, poor movement initiation.), Normal Upper Extremities (Moderate weakness for the left upper extremity proximally and distally, minimal literacy tutor power.) or Pronator Drift Motor Tone: Normal Lower Extremities and Normal Upper Extremities Muscle Bulk/Involuntary Movements: No Involuntary Movements; negative Muscle Atrophy Sensation: Light Touch Intact, Pain/Temperature Intact, Vibration Intact and Proprioception Intact Coordination: Normal, Finger-Nose Abnormal Laterality: Left and Heel-Weinberg Abnormal Laterality: Left; negative Limited Balance or Dysdiadochokinesia Deep Tendon Reflexes: Rt Triceps: 2+, Lt Triceps: 2+, Rt Biceps: 2+, Lt Biceps: 2+, Rt Brachioradialis: 2+, Lt Brachioradialis: 2+, Rt Patellar: 2+, Lt Patellar: 2+, Rt Ankle: 1+ and Lt Ankle: 1+ Special Tests: Babinski Present (Left) Details: Gait cannot be tested in the context of patient's current neurological/medical status. Results & Data ([facility]) Vital Signs (Past 12 Hours) Vital Signs Temp Pulse Pulse Resp BP BP Pulse Ox 05/30/21 10:30 36.9 C 76 16 149/74 H 96 05/30/21 07:19 37.0 C 72 18 125/66 93 05/30/21 03:39 36.9 C 61 20 126/68 94 05/30/21 01:20 58 L Laboratory Results WBC 9.43, hemoglobin 13.4, hematocrit 38.8, platelet count 266, sodium 138, potassium 4.1, BUN 18, creatinine 1.24, glucose 102, calcium 9.2, magnesium 2.3, AST 56, ALT 45, troponin 0 0.127, lipid panel completed this past February reviewed, triglycerides 111, cholesterol 91, LDL 39, VLDL 22, HDL 30, SARS-CoV-2 PCR positive. Coding Level of Care Code 50783 Initial Inpt Care Lvl 3 Diagnoses Embolic stroke I63.9
--- NOTE | 2021-05-30 18:23 | XCELERA ---
[id number]
--- NOTE | 2021-05-30 21:17 | Billing Data ---
Date of Service May 30, 2021 Coding Level of Care Code 52526 Initial Inpt Care Lvl 3
--- NOTE | 2021-05-30 22:15 | Electrocardiogram Report ---
Test Reason : Blood Pressure : / mmHG Vent. Rate : 068 BPM Atrial Rate : 068 BPM P-R Int : 190 ms QRS Dur : 134 ms QT Int : 434 ms P-R-T Axes : -26 -40 020 degrees QTc Int : 461 ms Normal sinus rhythm Left axis deviation Left ventricular hypertrophy with QRS widening Abnormal ECG When compared with ECG of 26-MAR-2021 07:50, No significant change was found Confirmed by Patrick Ball ([id number]) on 05/30/2021 10:15:27 PM Referred By: REFERRED SELF Confirmed By:Patrick Ball
--- NOTE | 2021-05-31 06:22 | Electrocardiogram Report ---
Test Reason : Blood Pressure : / mmHG Vent. Rate : 071 BPM Atrial Rate : 071 BPM P-R Int : 188 ms QRS Dur : 140 ms QT Int : 438 ms P-R-T Axes : -04 -37 013 degrees QTc Int : 475 ms Normal sinus rhythm with sinus arrhythmia Left axis deviation Left ventricular hypertrophy with QRS widening Cannot rule out Septal infarct , age undetermined Abnormal ECG When compared with ECG of 29-MAY-2021 17:31, Minimal criteria for Septal infarct are now Present Confirmed by Patrick Ball ([id number]) on 05/31/2021 6:21:53 AM Referred By: REFERRED SELF Confirmed By:Patrick Ball
[2021-05-31 06:53] LABS: Hematocrit (blood only) 36.1 % (42-52); Hemoglobin 12.8 g/dL (14.0-18.0); Immature Granulocytes # (auto) 0.03 K/uL (0.00-0.02); Immature Granulocytes % (auto) 0.3 %; Lymphocytes # (auto) 0.86 K/uL (1.2-3.4); Mean Corpuscular Hemoglobin 32.5 pg (25-34); Mean Corpuscular Hgb Conc 35.5 g/dL (32-36); Mean Corpuscular Volume 91.6 fL (80-100); Monocytes # (auto) 0.61 K/uL (0.11-0.59); Monocytes % (auto) 5.7 %; Neutrophils # (auto) 9.29 K/uL (1.4-6.5); Platelet Count 283 K/uL (130-400); RDW Standard Deviation 43.8 fL (36.4-46.3); Red Blood Count 3.94 M/uL (4.7-6.1); White Blood Count 10.79 K/uL (4.8-10.8)
[2021-05-31 07:18] LABS: BUN Creatinine Ratio 20.6 (10-20); Calcium 8.5 mg/dl (8.5-10.1); Creatinine Clr Calc Pharmacy 70.5 ml/min; Est GFR (African American) 81.8 ml/min; Est GFR (Non-African American) 70.6 ml/min; Potassium 4.1 mmol/L (3.5-5.1)
[2021-05-31 08:04] LABS: Estimated Average Glucose 134 mg/dl; Hemoglobin A1C 6.3 % (4.5-5.6)
[2021-05-31] MEDS: dexAMETHasone 6 MG in SYRINGE 0 ML IV SCH (09:00)
[2021-05-31] MEDS: ASPIRIN 81 MG ECTAB PO SCH (09:00)
[2021-05-31] MEDS: APIXABAN 5 MG TABLET PO SCH (09:00)
[2021-05-31] MEDS: LOSARTAN POTASSIUM 25 MG TAB PO SCH (09:00)
[2021-05-31] MEDS: ATORVASTATIN 40 MG TAB PO SCH (09:01)
[2021-05-31] MEDS: METOPROLOL SUCC 25MG EXT REL TAB PO SCH (09:01)
[2021-05-31] MEDS ORDERED: STROKE PATIENT DISCHARGE STA (10:48)
--- NOTE | 2021-05-31 11:00 | Discharge Summary ---
Date of Service May 31, 2021 Admission HPI Per Admitting Provider Raymond Ames is a 76-year-old male with past medical history significant for hypertension, s/p CABG x3, atrial fibrillation, CKD stage III, BPH; who presents for concerns of low oxygen saturations in the setting of known COVID-19. Was tested for COVID-19 on 05/13 following 1 day of upper respiratory-like symptoms. These symptoms continued for several days before he felt like they have mostly resolved. It was seen by PCP earlier this week for concerns of weakness of his left arm and leg, at that time had lab work done which showed a mildly elevated white blood cell count, and an EKG at that point time that was negative, additionally had a chest x-ray which demonstrated concern for bilateral perihilar airspace opacities consistent with viral pneumonia. And at that time had no other focal neurologic deficits/findings. Over the last 24 hours she has noticed continued worsening of his weakness but he saw his PCP for as well as development of fevers, chills, sweats. Ultimately and he was checking his ox ygen saturations on his pulse home pulse ox which said that he was in the mid to upper 80s, which he knew was concerning and caused him to decided come to the ER for evaluation. In the ED has maintained his oxygen saturations without supplemental oxygen. Did have blood work that demonstrated an elevated troponin. Repeat chest x-ray demonstrating interval improvement from earlier this week and bilateral airspace opacities. Denies any specific cardiac-type symptoms specifically denying chest pain, shortness of breath, palpitations, orthopnea. Principal Diagnosis Subacute ischemic stroke, right frontotemporal lobe Left hemiparesis due to stroke COVID 19 infection Discharge Exam General: well developed, well nourished, no acute distress, comfortable Neck: supple, trachea midline, normal thyroid Lungs: clear to auscultation bilaterally, normal respiratory effort, no accessory muscle use, no distress Heart: regular S1 and S2, no murmur, peripheral pulses normal, capillary refill normal, no edema Abdomen: soft, NT, ND, + BS, no hepatomegaly, normal to percussion Extremities: normal in appearance, no cyanosis, no petechiae, strength is 5/5 bilaterally Neuro: awake, cooperative, moves all extremities, CN II-XII intact, sensation in extremities intact, normal speech subtle nystagmus with rightward gaze 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 welder 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 gas is 4/5, left arm 4/5, poor coordination left arm, no pronator drift Skin: warm, dry, no rash, normal turgor Psych: Awake, alert oriented x 3, euthymic affect Discharge Data Allergies Allergy/AdvReac Type Severity Reaction Status Date / Time No Known Drug Allergies Allergy Unknown Rash Verified 05/29/21 20:34 SUNLIGHT Allergy Unknown UNKNOWN Uncoded 05/29/21 20:34 Consultations 05/29/21 19:59 ED Decision to Admit Stat 05/30/21 10:56 Consult Neurology Routine Ordered Studies 05/29/21 21:01 CT chest diagnostic w con Stat 05/30/21 07:31 MR angio head wo con Urgent MR angio neck wo/w con Urgent MR brain wo/w con Urgent Hospital Course (1) Embolic stroke: symptoms for 1 week, left hand weakness, clumsiness and some blurred vision MRI brain: scattered areas concerning acute stroke, right frontotemporal, left occipital, left cerebellum MRI head/neck: no significant findings will order echo with bubble study - EF is 45%, same as prior echo in February, negative bubble study continue Eliquis 5mg BID add aspirin 81mg daily continue Lipitor 40mg daily, LDL is at goal HbA1c was ordered but cannot be run on weekend, recommend PCP check one if not done recently outpatient PT/OT, could take a few months for strength and coordination to improve in left arm/hand recommend dedicated visual field testing with eye doctor (2) COVID-19: COVID-19: -Initially positive for COVID-19 on 05/13, with repeat testing on 05/29 -CT chest demonstrating widespread patchy bilateral ground glass opacities with peripheral distribution consistent with prior pneumonia stop dexamethasone, he is 97% on room air, breathing well, unlikely to develop worsening pneumonia at this time discussed that he does not need to be on quarantine with original test back on 05/13, he is 18 days out at this point explained that he would likely continue to "test" positive for a few weeks (3) Elevated troponin: minimal bump cycle troponins, echo no chest pain (4) S/P CABG x 3: many years ago continue metoprolol, Lipitor no chest pain (5) HTN (hypertension): BP controlled with metoprolol, Losartan (6) Afib: Atrial fibrillation/flutter LILIANA cardioversion 03/26/[address] Francis has been on Eliquis 5mg BID metoprolol for rate control NSR on EKG and monitor at this time discharge to home with home nursing, home therapy Total Time Total Time Spent Total Time Spent (In Minutes): 32 minutes Total Time Includes: Examination of the Patient, Discharge Planning, Medication Reconciliation and Communication With Other Providers Discharge Plan Discharge Items Patient Disposition: Home - Home Health Services Reason For Visit: COVID 19, ELEVATED TROPONIN Discharge Diagnosis: Subacute stroke, most prominent in right frontotemporal lobe COVID 19 infection, no hypoxia Condition on Discharge: Good Goals: improve strength in left hand with therapy secondary stroke prevention with medication Activity: Resume your previous activity Driving/Machine Use: wait until you see eye doctor Weightbearing: Full weightbearing Non-emergency contact: Primary Care Provider Call non-emergency contact if: you have any medication questions Follow-up/Referrals: Milena Garcia MD [Primary Care Provider] - (one week) Viki Hogue PA-C [Physician Back Hoe Operator] - (6-8 weeks) Diet: Heart Healthy Addtl Attending Provider Instructions: Medications: - ASPIRIN: 81mg daily, added for stroke prevention, safe to take with Eliquis Subacute stroke, several areas, but the right frontotemporal area is most serious causing symptoms of left sided weakness diagnosed on MRI of the brain MR angiogram of the head and neck shows no significant areas of stenosis or aneurysm echo of the heart is the same as it was in February, no major changes evaluated by Dr. Vences with neurology, only new medication is aspirin 81mg daily will arrange for home RN check and home therapy, can then go to outpatient physical therapy after this week Dr Vences recommends formal visual field testing with eye doctor, please make appointment would recommend that you not drive until you see the eye doctor COVID 19 + no signs of pneumonia, breathing well on room air you are 18 days out from initial positive test, you no longer need to be on quarantine Risk Factors for Stroke: You can reduce your chances of stroke by working with your medical provider to adopt a healthy lifestyle. Some specific ways to lower your chance of stroke are: * If you are a smoker, now is the time to stop smoking cigarettes * If you are diabetic, improve the control of your blood sugars * Avoid excessive amounts of alcohol * Control high blood pressure * Lose weight if you are overweight * Be sure to lead an active lifestyle * Eat a healthy diet low in salt, cholesterol and fat You should know about other risk factors for stroke that you are unable to control. These include: * Age 55 years or older * Male gender * Certain racial groups: , or / * Family History of Stroke, Mini stroke or Heart Attack * Sickle Cell Disease Follow Up: It is important for you to keep your follow up appointments with your medical provider. Who to Call and When: Medical Emergencies: Call 911 immediately if you experience any of the following warning signs and symptoms of Stroke: * Sudden numbness or weakness of the face, arm or leg, especially on one side of the body * Sudden confusion, trouble speaking or understanding * Sudden trouble seeing in one or both eyes * Sudden trouble walking, dizziness, loss of balance or coordination * Sudden severe headache with no cause Do not delay calling 911 if you experience any warning signs or symptoms of a stroke. Delay in seeking medical attention may affect what treatments can be given to you. . Pending Studies at Discharge: No Stand-Alone Forms: My [facility], Smoking Cessation Medications and DC Order Prescriptions: New aspirin 81 mg Tablet,Delayed Release (Dr/Ec) 81 mg PO QAM 30 Days Qty: 30 RF: 3 Continued atorvastatin 40 mg tablet 40 mg PO DAILY Qty: 90 RF: 3 losartan 25 mg tablet 25 mg PO DAILY Qty: 90 RF: 3 metoprolol succinate 25 mg tablet extended release 24 hr 25 mg PO DAILY Qty: 90 RF: 3 Eliquis 5 mg Tablet 5 mg PO BID Qty: 60 RF: 3 Discharge Orders: Discharge Order (Routine); Ordered 05/31/21 Ordered By: Frederic Shaw Admission Data Admit Date/Time: 05/29/21 21:09 Attending Provider: Frederic Shaw Admit Provider: Norberto Ruff Primary Care Provider: Milena Garcia Other Providers: Arias Murry Emile Coding Level of Care Code D/C DAY MANAGEMENT >30 MINS Diagnoses Embolic stroke I63.9 COVID-19 U07.1 Elevated troponin R77.8 S/P CABG x 3 Z95.1 HTN (hypertension) I10 Hypertension type: primary hypertension Afib I48.91 Atrial fibrillation type: unspecified
--- NOTE | 2021-05-31 11:49 | Pharmacy Report ---
Pharmacist Stroke Counseling - Date of Service May 31, 2021 - Scope: Pharmacy has been consulted to provide medication discharge counseling for this patient admitted with [ischemic stroke] [hemorrhagic stroke] [transient ischemic attack] as per the Pharmacist Discharge Counseling for Stroke Patients [facility]. - Medications on Discharge: 05/31 aspirin 81 mg added on discharge as new medication Medication Instructions Recorded atorvastatin 40 mg tablet 40 mg PO DAILY #90 tab 09/10/20 losartan 25 mg tablet 25 mg PO DAILY #90 tab 10/02/20 apixaban 5 mg tablet (Eliquis) 5 mg PO BID #60 tab 03/26/21 metoprolol succinate 25 mg 25 mg PO DAILY #90 tab 04/30/21 tablet,extended release 24 hr - Action: The above medications, specifically ones for stroke treatment/prophylaxis, have been reviewed in detail with the patient and/or patient customer counter representative(s) prior to discharge. This includes indication, common adverse reactions, drug interactions, and medication administration. Medication counseling has been employed using the teach-back method to ensure understanding. - Outcome: The patient and/or patient customer counter representative(s) have demonstrated understanding of the medications. Additional comments: Patient demonstrated understanding of aspirin being added to medication list on discharge. No other changes. Told patient to monitor for any increase of br uising/bleeding while on aspirin/eliquis combo. No other pertinent positives on interview Thank you for allowing pharmacy to be involved in the care of this patient. Please call [phone] with any additional questions
--- NOTE | 2021-06-01 19:39 | Electrocardiogram Report ---
Test Reason : Blood Pressure : / mmHG Vent. Rate : 058 BPM Atrial Rate : 058 BPM P-R Int : 200 ms QRS Dur : 144 ms QT Int : 470 ms P-R-T Axes : -29 -36 -31 degrees QTc Int : 461 ms Poor data quality, interpretation may be adversely affected Sinus bradycardia Left axis deviation Left bundle branch block Abnormal ECG When compared with ECG of 30-MAY-2021 07:25, Left bundle branch block is now Present Minimal criteria for Septal infarct are no longer Present Confirmed by Raymond Elias ([id number]) on 06/01/2021 7:39:29 PM Referred By: REFERRED SELF Confirmed By:Raymond Elias
--- NOTE | 2021-06-10 13:22 | Coding Query ---
CODING QUERY To promote full compliance with coding requirements relating to patient care, provider participation is requested in all cases of traveling engineer uncertainty. Please assist us with the question(s) below: Coding Question(s): There is documentation in the record of Embolic stroke beginning on the 05/30 Progress Note with documentation of, "symptoms for 1 week, left hand weakness, clumsiness and some blurred vision MRI brain: scattered areas concerning acute stroke, right frontotemporal, left occipital, left cerebellum", and the 05/30 Neurology Consultation documents Embolic Stroke and documents stroke risk factors include atrial fibrillation and COVID-19 infection, and the Discharge Summary documents Subacute ischemic stroke, right frontotemporal lobe. Please specify below, in your clinical opinion, regarding the stroke documentation and the risk factor of atrial fibrillation and COVID-19 infection documentation. ( x ) likely possible Acute Stroke. Please Specify further below, in your clinical opinion: ( ) possible due to atrial fibrillation and/or COVID-19 Infection (x ) possible due to atrial fibrillation and NOT COVID-19 Infection ( ) possible due to COVID-19 Infection, and NOT Atrial Fibrillation ( ) possible due to Other: Please Specify ( ) Unspecified possible cause ( x ) likely possible Chronic or Old Stroke. Please Specify further below, in your clinical opinion: ( ) possible due to atrial fibrillation and/or COVID-19 Infection ( x ) possible due to atrial fibrillation and NOT COVID-19 Infection ( ) possible due to COVID-19 Infection, and NOT Atrial Fibrillation ( ) possible due to Other: Please Specify ( ) Unspecified possible cause ( ) Other: Please Specify Physician's Response(s): Thank you Anika Conti Principal Diagnosis: "that condition established after study, to be chiefly responsible for occasioning the admission of the patient to the hospital for care." Co-Existing Principal Diagnosis: "when two or more diagnoses equally meet the criteria for principal diagnosis as determined by the circumstances of admission, diagnostic work up, and/or therapy provided, and the Alphabetic Index, Tabular List, or another coding guideline does not provide sequencing direction, any one of the diagnoses may be sequenced first." "When the physician has documented what appears to be a current diagnosis in the body of the record, but has not included the diagnosis in the final diagnostic statement, the physician should be asked whether the diagnosis should be added." (Source [facility]oding [facility] 2 QTR90. p3-4) RAFAELA
--- NOTE | 2021-06-10 13:30 | Coding Query ---
CODING QUERY To promote full compliance with coding requirements relating to patient care, provider participation is requested in all cases of face cleaner uncertainty. Please assist us with the question(s) below: Coding Question(s): Elevated Troponin is documented throughout the record, with documentation on H&P of, "Elevated troponin: -Troponin on admission 0.169 -Concern for potential Covid myocarditis verse NSTEMI versus demand ischemia", and, "with differential including Covid myocarditis/pericarditis versus non- STEMI versus demand ischemia", and Progress Notes and Discharge Summary document, "Elevated troponin: minimal bump cycle troponins, echo no chest pain". Please specify below, in your clinical opinion, regarding elevated troponin. ( ) Elevated troponin is possible Covid-19 Myocarditis ( ) Elevated troponin is possible Covid-19 pericarditis ( ) Elevated troponin is possible Non-STEMI ( ) Elevated troponin is possible demand ischemia ( ) Elevated troponin is Other: Please Specify ( x) Elevated troponin is unspecified Physician's Response(s): Thank you Anika Conti Principal Diagnosis: "that condition established after study, to be chiefly responsible for occasioning the admission of the patient to the hospital for care." Co-Existing Principal Diagnosis: "when two or more diagnoses equally meet the criteria for principal diagnosis as determined by the circumstances of admission, diagnostic work up, and/or therapy provided, and the Alphabetic Index, Tabular List, or another coding guideline does not provide sequencing direction, any one of the diagnoses may be sequenced first." "When the physician has documented what appears to be a current diagnosis in the body of the record, but has not included the diagnosis in the final diagnostic statement, the physician should be asked whether the diagnosis should be added." (Source Coding Clinic 2 QTR90. p3-4) RAFAELA
== END 2021-05-31 14:35 | disposition home health service (06) | DRG 64 ==
LOC: ED 15:03 → SUATTDRO 21:09 → 2E 21:09

== ENCOUNTER 2025-03-05 11:41 | Inpatient (IN) ==
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
[2025-03-05] MEDS: SODIUM CHLORIDE 0.9% 1,000 ML IV ONE ×2 (12:08→13:04)
[2025-03-05] MEDS: ACETAMINOPHEN 500 MG TAB PO STA (12:14)
[2025-03-05 12:26] LABS: Hematocrit (blood only) 35.6 % (42.0-52.0); Hemoglobin 11.8 g/dl (14.0-18.0); Mean Corpuscular Hemoglobin 31.4 pg (25.0-34.0); Mean Corpuscular Volume 94.7 fL (80.0-100.0); Platelet Count 186 K/uL (130-400); RDW Standard Deviation 46.9 fL (36.4-46.3); Red Blood Count 3.76 M/uL (4.70-6.10); White Blood Count 8.10 K/ul (4.8-10.8)
[2025-03-05 12:45] LABS: Alanine Aminotransferase 13.0 U/L (7-52); Alkaline Phosphatase 80.0 U/L (34-104); Anion Gap 8.0 (3-11); Bilirubin,Total 0.7 mg/dl (0.2-1.0); Blood Urea Nitrogen 17.0 mg/dl (6-23); Calcium 8.9 mg/dl (8.6-10.3); Carbon Dioxide 24.0 mmol/L (21-32); Chloride 105.0 mmol/L (98-107); Creatinine Clr Calc Pharmacy 39.2 ml/min; Glucose 92.0 mg/dl (70-99(Fasting)); Magnesium 1.6 mg/dl (1.7-2.4); Potassium 4.0 mmol/L (3.5-5.1); Sodium 137.0 mmol/L (136-145); Total Protein 6.8 gm/dl (6.0-8.3)
[2025-03-05 12:50] LABS: Immature Granulocytes # (auto) 0.02 K/uL (0.01-0.20); Immature Granulocytes % (auto) 0.2 %; Toxic Vacuolation 2+
[2025-03-05 12:56] LABS: INR 1.0 (0.9-1.1); Partial Thromboplastin Time 24 Seconds (21-31); Prothrombin Time 11.2 Seconds (9.0-12.0)
--- NOTE | 2025-03-05 12:57 | XRay Report ---
XR chest 1V portable HISTORY: 80 years-old Male Sepsis acute sepsis COMPARISON: 02/11/2025 TECHNIQUE: AP view of the chest FINDINGS: Cardiac silhouette is enlarged. Median sternotomy with cardiac valvular prosthesis. No pneumothorax, pleural effusion or overt pulmonary edema. Chronic interstitial coarsening. Mild right hemidiaphragma tic elevation. Bones appear grossly intact. IMPRESSION: 1. Cardiomegaly without acute process. 2. Chronic interstitial coarsening. ACT 112: Negative or not required by law. The above report was generated using voice recognition software. It may contain grammatical, syntax o r spelling errors. Electronically signed by: Matty Perez M.D. 03/05/2025 12:55 PM
[2025-03-05] MEDS: PIPERACILLIN/TAZOBACTAM 4.5 GM/100 ML BAG IV ONE (13:03)
[2025-03-05] MEDS: SODIUM CHLORIDE 0.9% 250 ML IV ONE (13:04)
[2025-03-05] MEDS: SODIUM CHLORIDE 0.9% 500 ML IV ONE (13:04)
[2025-03-05] MEDS: OPTIRAY 320 100ml IV ONE (13:22)
[2025-03-05] MEDS: MAGNESIUM SULFATE / D5W 1 GM/100 ML BAG IV SCH (13:43)
--- NOTE | 2025-03-05 13:55 | CT Scan Report ---
CT SCAN OF THE ABDOMEN AND PELVIS WITH IV CONTRAST CLINICAL HISTORY: Hematuria. COMPARISON STUDY: Abdominal CT dated 02/10/2025 TECHNIQUE: Following the IV administration of 93 cc of Optiray 320, CT scan of the abdomen and pelvi s is performed from the lung bases to the proximal femora. Images are reviewed in the axial, sagittal , and coronal planes. IV contrast was administered without complication. A dose lowering technique wa s utilized adhering to the principles of ALARA. The examination is degraded by motion artifact. CT DOSE: 1102.57 mGy.cm FINDINGS: Lung bases: The patient is status post midline sternotomy and mitral valve surgery. The heart is enla rged and without pericardial effusion. The coronary arteries are densely calcified. The lung bases ar e clear noting dependent atelectasis. Liver: The contrast-enhanced liver is normal in size, contour, and attenuation. There is no intrahepa tic biliary ductal dilatation. The hepatic veins and portal veins are patent. Gallbladder: Surgically absent noting clips in the gallbladder fossa. Spleen: Normal in size and attenuation. Pancreas: Moderately atrophic and grossly unremarkable. Adrenal glands: Unremarkable. Kidneys: The contrast enhanced kidneys are normal in size and without hydronephrosis. The kidneys enh ance symmetrically. Scattered subcentimeter cortical hypodensities likely represent cysts but are too small for definitive characterization. No enhancing cortical mass there is no ureteral stone. Abdominal vasculature: There is advanced atherosclerotic calcification and mild ectasia of the abdomi nal aorta. Bowel: There is mild colonic diverticulosis without CT evidence of acute diverticulitis. No bowel obs truction is seen. The appendix is well-visualized and normal. The rectum is decompressed and appears mildly thick walled. Peritoneum: There is no intraperitoneal free air or abdominal ascites. Lymphadenopathy: None. Pelvic viscera: The prostate gland is enlarged and heterogeneous. The bladder is largely decompressed around a Knox catheter and appears thick walled. Intraluminal gas is likely related to instrumentat ion. There are bilateral fat-containing groin hernias. Skeletal structures: The skeletal structures are osteopenic. There is mild to moderate lumbosacral sp ondylosis. No lytic or blastic lesions are seen. IMPRESSION: 1. The bladder is largely decompressed around a Knox catheter and appears thick walled. The prostate gland is enlarged/heterogeneous, and this may be related to chronic outlet obstruction. Correlate wi th clinical findings and urinalysis for evidence of cystitis. 2. The kidneys are normal as imaged. 3. Colonic diverticulosis without CT evidence of acute diverticulitis. 4. Cardiomegaly. 5. The rectum is decompressed and appears mildly thick walled. Correlate clinically. If warranted thi s could be further assessed with colonoscopy. 6. Additional findings as above. ACT 112: Negative or not required by law. Electronically signed by: Severino Montoya M.D. 03/05/2025 1:54 PM
[2025-03-05 14:43] LABS: Appearance Urine Turbid (Clear); Glucose Urine UA Negative (Negative)
[2025-03-05 14:46] LABS: Epithelial Cell Urine 0-2 /hpf (0-2)
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
[2025-03-05] MEDS ORDERED: ONDANSETRON INJ 2 MG/ML 2 ML VIAL IV PRN (17:19)
[2025-03-05] MEDS: SODIUM CHLORIDE 0.9% 1,000 ML IV SCH (17:34)
[2025-03-05] MEDS: PIPERACILLIN/TAZOBACTAM 4.5 GM/100 ML BAG IV SCH (17:54)
--- NOTE | 2025-03-05 18:31 | Electrocardiogram Report ---
Test Reason : Blood Pressure : */* mmHG Vent. Rate : 134 BPM Atrial Rate : 136 BPM P-R Int : 112 ms QRS Dur : 132 ms QT Int : 350 ms P-R-T Axes : * -43 103 degrees QTcB Int : 522 ms Sinus tachycardia Left axis deviation Left bundle branch block Abnormal ECG When compared with ECG of 10-Feb-2025 15:49, Vent. rate has increased by 64 bpm Confirmed by Konrad Francis ([id number]) on 03/05/2025 6:31:29 PM Referred By: REFERRED SELF Confirmed By: Konrad Francis
[2025-03-05 19:00] LABS: Hematocrit (blood only) 31.3 % (42.0-52.0); Hemoglobin 10.6 g/dl (14.0-18.0)
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
[2025-03-05] MEDS: levETIRAcetam 500 MG TAB PO SCH (21:03)
[2025-03-05] MEDS: SENNA 8.6 MG TAB PO SCH (21:04)
[2025-03-05] MEDS: DOCUSATE SODIUM 100 MG CAP PO SCH (21:04)
[2025-03-06] MEDS: CYANOCOBALAMIN (B-12) 500 MCG TABLET PO SCH (08:29)
[2025-03-06] MEDS: CHOLECALCIFEROL 125 MCG (5,000 UNITS) TAB PO SCH (08:29)
[2025-03-06] MEDS: ATORVASTATIN 40 MG TAB PO SCH (08:29)
[2025-03-06] MEDS: FERROUS SULFATE 325 MG TAB PO SCH (08:30)
[2025-03-06 08:51] LABS: A calco-baum cmplx NotReported Not Detected (NotDetected); Bact fragilis Not Reported Not Detected (NotDetected); Blood Culture Id Panel See PCR Comment (NotDetected); C auris Not Reported Not Detected (NotDetected); CTX-M Resistant Gene Not Detected (NotDetected); Calbicans Not Reported Not Detected (NotDetected); Candida glabrata Not Reported Not Detected (NotDetected); Candida krusei Not Reported Not Detected (NotDetected); Cneoformans/gatti Not Reported Not Detected (NotDetected); Cparapsilosis Not Reported Not Detected (NotDetected); Ctropicalis Not Reported Not Detected (NotDetected); E cloacae compx Not Reported Not Detected (NotDetected); Efaecalis Not Reported Not Detected (NotDetected); Efaecium Not Reported Not Detected (NotDetected); Enterobacterales Not Reported Not Detected (NotDetected); Escherichia coli Not Reported Not Detected (NotDetected); H influenzae Not Reported Not Detected (NotDetected); IMP Resistant Gene Not Detected (NotDetected); K aerogenes Not Reported Not Detected (NotDetected); KPC Resistant Gene Not Detected (NotDetected); Koxytoca Not Reported Not Detected (NotDetected); Kpneumoniae grp Not Reported Not Detected (NotDetected); Lmonocyt Not Reported Not Detected (NotDetected); N meningitidis Not Reported Not Detected (NotDetected); NDM Resistant Gene Not Detected (NotDetected); P aeruginosa Not Reported DETECTED (NotDetected); Proteus spp Not Reported Not Detected (NotDetected); Salmonella spp Not Reported Not Detected (NotDetected); Staph lugdunensis Not Reported Not Detected (NotDetected); Staph spp. Not Reported Not Detected (NotDetected); Staphaureus Not Reported Not Detected (NotDetected); Staphepi Not Reported Not Detected (NotDetected); Stenmaltophilia Not Reported Not Detected (NotDetected); Strep agal(GrpB) Not Reported Not Detected (NotDetected); Strep pneum Not Reported Not Detected (NotDetected); Strep pyog (GrpA) Not Reported Not Detected (NotDetected); Strep spp Not Reported Not Detected (NotDetected); VIM Resistant Gene Not Detected (NotDetected)
[2025-03-06 10:31] LABS: Hematocrit (blood only) 28.6 % (42.0-52.0); Hemoglobin 9.2 g/dl (14.0-18.0); Immature Granulocytes # (auto) 0.06 K/uL (0.01-0.20); Immature Granulocytes % (auto) 0.5 %; Mean Corpuscular Hemoglobin 31.1 pg (25.0-34.0); Mean Corpuscular Volume 96.6 fL (80.0-100.0); Platelet Count 147 K/uL (130-400); RDW Standard Deviation 50.0 fL (36.4-46.3); Red Blood Count 2.96 M/uL (4.70-6.10); White Blood Count 11.28 K/ul (4.8-10.8)
[2025-03-06 10:46] LABS: Anion Gap 5.0 (3-11); Blood Urea Nitrogen 16.0 mg/dl (6-23); Calcium 8.3 mg/dl (8.6-10.3); Carbon Dioxide 24.0 mmol/L (21-32); Chloride 108.0 mmol/L (98-107); Creatinine Clr Calc Pharmacy 44.9 ml/min; Glucose 126.0 mg/dl (70-99(Fasting)); Magnesium 2.1 mg/dl (1.7-2.4); Potassium 3.9 mmol/L (3.5-5.1); Sodium 137.0 mmol/L (136-145)
[2025-03-06 11:02] LABS: Cdiff Toxin B Gene (2yr or >) Negative Cdiff Gene (Neg)
[2025-03-06] MEDS: DIPHENOXYLATE/ATROPINE 2.5/0.025MG TAB PO ONE (11:35)
[2025-03-06] MEDS: PSYLLIUM HUSK 4GM PACKET PO SCH (11:36)
[2025-03-06 11:37] LABS: Adenovirus F 40/41 PCR Not Detected (NotDetected); Campylobacter PCR Not Detected (NotDetected); Enteroaggregative E.coli(EAEC) Not Detected (NotDetected); Shiga-like Toxin E.coli (STEC) Not Detected (NotDetected); Vibrio species PCR Not Detected (NotDetected)
--- NOTE | 2025-03-06 14:26 | Urology Progress Note ---
Date of Service March 06, 2025 Assessment & Plan (1) Hematuria: Plan Follow-up for gross hematuria. Patient afebrile and hemodynamically stable. Labs today show WBCs 11.28, hemoglobin 9.2, creatinine 1.5. Urine culture pending; Blood cultures preliminary gram-negative bacilli. Knox intact and draining light pink urine. Maintain Knox catheter and monitor urine output. Okay to hand irrigate as needed for clots, retention, suprapubic pain. Continue antibiotics and tailor per culture sensitivities. Continue supportive care. Urology will follow, please call with any question/concerns. Admission and Anticipated Discharge Date Admission Date: March 05, 2025 Subjective Pt seen at bedside today. Awake and resting in bed on arrival. No acute distress. Knox intact and draining light pink urine. Denies bladder pain or pressure. Review of Systems Constitutional: as per Subjective / HPI Genitourinary: + as per Subjective / HPI Physical Exam Constitutional: no acute distress Respiratory: no respiratory distress and no labored breathing Skin: No visible rashes or lesions to exposed skin areas Neurologic: awake Psychiatric: Orientation: alert and cooperative Results & Data Vital Signs (Past 12 Hours) Vital Signs Temp Pulse Pulse Resp BP Pulse Ox O2 Del Method 03/06/25 11:07 36.4 C L 67 18 112/59 L 99 Room Air 03/06/25 09:00 Room Air 03/06/25 07:43 37.4 C 67 16 113/60 95 Room Air 03/06/25 07:00 62 03/06/25 02:49 36.5 C 65 18 96/50 L 97 Room Air PG Care Time/CCT Total # of Minutes Spent Total Time Spent with Patient: Total time spent is greater than 50% in coordination of care (as documented) at patient's floor/unit and/or counseling patient: Coding Level of Care Code 08415 SUB INP/OBS CARE 2/35MIN Diagnoses Hematuria R31.9
--- NOTE | 2025-03-06 16:08 | Hospitalist Progress Note ---
Date of Service March 06, 2025 Assessment & Plan (1) Gross hematuria: Plan: Developed after his chronic indwelling Knox [facility]. Now resolved. Eliquis placed on hold on admission. Serial H&H. Urology consultation appreciated. No intervention planned at this time. (2) Catheter-associated urinary tract infection: Plan: Recent cultures grew E. coli. He is now on intravenous Zosyn, day 2. Urine cultures and blood cultures obtained and pending. (3) Gram-negative bacteremia: Plan: Await final identification and sensitivities. Continue Zosyn for now (4) Sepsis: Plan: Suspected on admission with borderline low blood pressure, elevated lactic acid level, tachycardia. Now much improved. Telemetry (5) Acute worsening of stage 3 chronic kidney disease: Plan: Creatinine 1.7 on admission with baseline 1.1. Creatinine has improved to 1.5 today, March 06. Will continue to monitor urine output. Serial labs (6) Tibial plateau fracture: Plan: Recent open reduction internal fixation of right tibial plateau fracture. Eliquis was placed on hold on admission due to gross hematuria. Supportive care (7) CAD (coronary artery disease): Plan: History of coronary artery bypass grafting. Currently stable. Continue current medical management. Telemetry (8) Diarrhea: Plan: Appears to be noninfectious. He received Lomotil earlier today, March 06 and Metamucil twice daily scheduled dosing has been started. Will follow Plan Hopeful return to [facility] within the next 2 to 3 days Admission and Anticipated Discharge Date Admission Date: March 05, 2025 Subjective Much improved mental status. He appears to be back to his baseline. Unfortunately, his blood cultures are positive for gram-negative bacilli, possibly Pseudomonas by PCR testing. He remains on Zosyn, day 2. Will await final identification and sensitivities. He has frequent diarrhea but stool BioFire is negative as is the C. difficile toxin assay. He received Lomotil today and is now on Metamucil twice daily. Creatinine improved to 1.5 with IV fluids which continue. Hopefully [facility] can [facility] to [facility] days for ongoing oral treatment and hopefully will not need continued IV antibiotics. Will await final identification and sensitivities of blood culture results. Review of Systems 2 Review of Systems: Constitutionalno fever or chills ENTno blurred vision, no double vision, no epistaxis, no sore throat Respiratoryno cough, no wheezing, no shortness of breath Cardiacno palpitations, no chest pain, no syncope Rahul nausea, vomiting, diarrhea, melena, hematochezia GUgross hematuria in Knox catheter that was recently changed. Musculoskeletalno joint pain, no muscle tenderness Skinno bruising, no rashes, no pruritus Neurono isolated weakness, no paresthesia. Generalized severe weakness Psychno depression, no anxiety Physical Exam 2 Physical Exam: General-alert and oriented. No fever. No distress HEENT-head atraumatic and normocephalic, pupils equal and reactive to light, extraocular muscles intact Neck-no lymphadenopathy or thyromegaly, trachea midline Chest-clear to auscultation. No rales, wheezing or rhonchi Cardiac-regular rate and rhythm, normal S1 and S2 Abdomen-normal bowel sounds, no hepatosplenomegaly GUFoley catheter in place without any sign of gross hematuria at this time Extremities-no cyanosis, clubbing, or edema Neuro-cranial nerves II through XII intact, motor and sensory function within normal limits, strength symmetrical, no focal deficits Psych-normal affect Results & Data Results & Data Vital Signs (Past 12 Hours) Vital Signs Temp Pulse Pulse Resp BP Pulse Ox O2 Del Method 03/06/25 15:06 37.0 C 68 16 109/52 L 95 Room Air 03/06/25 13:26 72 03/06/25 11:07 36.4 C L 67 18 112/59 L 99 Room Air 03/06/25 09:00 Room Air 03/06/25 07:43 37.4 C 67 16 113/60 95 Room Air 03/06/25 07:00 62 Laboratory Results 03/06/25 09:55 03/06/25 09:55 PG Care Time/CCT Total # of Minutes Spent Total Time Spent with Patient: Total time spent is greater than 50% in coordination of care (as documented) at patient's floor/unit and/or counseling patient: Coding Level of Care Code 89528 SUB INP/OBS CARE 3/50MIN Diagnoses Gross hematuria R31.0 Catheter-associated urinary tract infection T83.511A; N39.0 Gram-negative bacteremia R78.81 Sepsis A41.9 Acute worsening of stage 3 chronic kidney disease N18.30 Tibial plateau fracture S82.143A Coronary artery disease involving [place] coronary artery of [place] heart without angina pectoris I25.10 Coronary Disease-Associated Artery/Lesion type: [place] artery [place] vs. transplanted heart: [place] heart Associated angina: without angina Diarrhea R19.7 (7) CAD (coronary artery disease) Coronary Disease-Associated Artery/Lesion type: [place] artery [place] vs. transplanted heart: [place] heart Associated angina: without angina Qualified Code(s): I25.10 - Atherosclerotic heart disease of [place] coronary artery without angina pectoris
[2025-03-06] MEDS: ACETAMINOPHEN 325 MG TAB PO PRN (16:31)
[2025-03-07] MEDS: MELATONIN 3 MG TAB PO PRN (02:27)
[2025-03-07 06:09] LABS: Hematocrit (blood only) 29.6 % (42.0-52.0); Hemoglobin 9.7 g/dl (14.0-18.0); Immature Granulocytes # (auto) 0.02 K/uL (0.01-0.20); Immature Granulocytes % (auto) 0.2 %; Mean Corpuscular Hemoglobin 31.7 pg (25.0-34.0); Mean Corpuscular Volume 96.7 fL (80.0-100.0); Platelet Count 144 K/uL (130-400); RDW Standard Deviation 50.3 fL (36.4-46.3); Red Blood Count 3.06 M/uL (4.70-6.10); White Blood Count 8.23 K/ul (4.8-10.8)
[2025-03-07 06:25] LABS: Anion Gap 5.0 (3-11); Blood Urea Nitrogen 13.0 mg/dl (6-23); Calcium 8.2 mg/dl (8.6-10.3); Carbon Dioxide 24.0 mmol/L (21-32); Chloride 111.0 mmol/L (98-107); Creatinine Clr Calc Pharmacy 49.2 ml/min; Glucose 122.0 mg/dl (70-99(Fasting)); Potassium 4.4 mmol/L (3.5-5.1); Sodium 140.0 mmol/L (136-145)
[2025-03-07] MEDS: ASPIRIN 81 MG ECTAB PO SCH (10:42)
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
--- NOTE | 2025-03-07 13:28 | Hospitalist Progress Note ---
Date of Service March 07, 2025 Assessment & Plan (1) Gross hematuria: Plan: Developed after his chronic indwelling Knox catheter was changed at [facility]. Now only old blood is seen which will eventually resolve. Eliquis was stopped on admission. Hemoglobin is stable. Urology consultation appreciated. No intervention planned at this time. They will follow-up as an outpatient (2) Catheter-associated urinary tract infection: Plan: Pseudomonas isolated. Continue Zosyn, day 3. Switch to oral antibiotic at discharge. Blood cultures positive on admission and repeated today, March 07. (3) Gram-negative bacteremia: Plan: Pseudomonas isolated. Repeat blood cultures again today, March 07. Continue Zosyn (4) Sepsis: Plan: Suspected on admission with borderline low blood pressure, elevated lactic acid level, tachycardia. Now resolved. Telemetry (5) Acute worsening of stage 3 chronic kidney disease: Plan: Creatinine 1.7 on admission with baseline 1.1. Creatinine continues to improve, now down to 1.3. Serial labs (6) Tibial plateau fracture: Plan: Recent open reduction internal fixation of right tibial plateau fracture. Eliquis was discontinued on admission due to gross hematuria. Supportive care (7) CAD (coronary artery disease): Plan: History of coronary artery bypass grafting. Currently stable. Continue current medical management. Telemetry (8) Diarrhea: Plan: Appears to be noninfectious. He received Lomotil on March 06 and Metamucil twice daily scheduled dosing has been started. Will follow Plan Hopeful return to [facility] tomorrow, March 08, on an oral antibiotic if the second set of blood cultures remain negative Admission and Anticipated Discharge Date Admission Date: March 05, 2025 Subjective Alert and oriented. Blood culture gram-negative bacteria has been identified as Pseudomonas. He remains on intravenous Zosyn, day 3. Repeat blood cultures ordered for today, March 07. Hemoglobin is stable at 9.7. Creatinine improved to 1.3. Eliquis has been discontinued. Gross hematuria is subsiding. Hopefully he can return to [facility] tomorrow, March 08, on an oral antibiotic if his repeat blood cultures are negative. Urology has seen the patient and will follow-up as an outpatient. Review of Systems 2 Review of Systems: Constitutionalno fever or chills ENTno blurred vision, no double vision, no epistaxis, no sore throat Respiratoryno cough, no wheezing, no shortness of breath Cardiacno palpitations, no chest pain, no syncope Rahul nausea, vomiting, diarrhea, melena, hematochezia GUgross hematuria is resolving in Knox catheter ( recently changed) Musculoskeletalno joint pain, no muscle tenderness Skinno bruising, no rashes, no pruritus Neurono isolated weakness, no paresthesia. Generalized severe weakness Psychno depression, no anxiety Physical Exam 2 Physical Exam: General-alert and oriented. No fever. No distress HEENT-head atraumatic and normocephalic, pupils equal and reactive to light, extraocular muscles intact Neck-no lymphadenopathy or thyromegaly, trachea midline Chest-clear to auscultation. No rales, wheezing or rhonchi Cardiac-regular rate and rhythm, normal S1 and S2 Abdomen-normal bowel sounds, no hepatosplenomegaly GUFoley catheter in place. Some old blood noted. Extremities-no cyanosis, clubbing, or edema Neuro-cranial nerves II through XII intact, motor and sensory function within normal limits, strength symmetrical, no focal deficits Psych-normal affect Results & Data Results & Data Vital Signs (Past 12 Hours) Vital Signs Temp Pulse Pulse Resp BP Pulse Ox O2 Del Method 03/07/25 11:40 36.7 C 72 18 152/69 H 94 Room Air 03/07/25 08:02 Room Air 03/07/25 07:45 36.5 C 70 18 137/70 95 Room Air 03/07/25 07:05 75 03/07/25 02:58 36.3 C L 66 16 136/65 95 Room Air Laboratory Results 03/07/25 05:50 03/07/25 05:50 PG Care Time/CCT Total # of Minutes Spent Total Time Spent with Patient: Total time spent is greater than 50% in coordination of care (as documented) at patient's floor/unit and/or counseling patient: Coding Level of Care Code 45239 SUB INP/OBS CARE 2/35MIN Diagnoses Gross hematuria R31.0 Catheter-associated urinary tract infection T83.511A; N39.0 Gram-negative bacteremia R78.81 Sepsis A41.9 Acute worsening of stage 3 chronic kidney disease N18.30 Tibial plateau fracture S82.143A Coronary artery disease involving [place] coronary artery of [place] heart without angina pectoris I25.10 Coronary Disease-Associated Artery/Lesion type: [place] artery [place] vs. transplanted heart: [place] heart Associated angina: without angina Diarrhea R19.7 (7) CAD (coronary artery disease) Coronary Disease-Associated Artery/Lesion type: [place] artery [place] vs. transplanted heart: [place] heart Associated angina: without angina Qualified Code(s): I25.10 - Atherosclerotic heart disease of [place] coronary artery without angina pectoris
[2025-03-08 02:16] VITALS: RESP 18
[2025-03-08 08:06] LABS: Hematocrit (blood only) 30.1 % (42.0-52.0); Hemoglobin 10.1 g/dl (14.0-18.0); Immature Granulocytes # (auto) 0.01 K/uL (0.01-0.20); Immature Granulocytes % (auto) 0.1 %; Mean Corpuscular Hemoglobin 31.7 pg (25.0-34.0); Mean Corpuscular Volume 94.4 fL (80.0-100.0); Platelet Count 160 K/uL (130-400); RDW Standard Deviation 46.7 fL (36.4-46.3); Red Blood Count 3.19 M/uL (4.70-6.10); White Blood Count 6.78 K/ul (4.8-10.8)
[2025-03-08 08:20] LABS: Anion Gap 5.0 (3-11); Blood Urea Nitrogen 8.0 mg/dl (6-23); Calcium 8.4 mg/dl (8.6-10.3); Carbon Dioxide 24.0 mmol/L (21-32); Chloride 109.0 mmol/L (98-107); Creatinine Clr Calc Pharmacy 58.6 ml/min; Glucose 117.0 mg/dl (70-99(Fasting)); Potassium 3.8 mmol/L (3.5-5.1); Sodium 138.0 mmol/L (136-145)
--- NOTE | 2025-03-08 09:52 | Urology Progress Note ---
Date of Service March 08, 2025 Assessment & Plan (1) Hematuria: Plan 80yo male with a history of trauma with fracture and fixation at outlying facility who had been undergoing rehab. Had complication of postoperative retention and gross hematuria. Had repeat episode of gross hematuria with recent catheter exchange during rehabilitation and also concern for possible infection. Patient afebrile and hemodynamically stable at present. Labs today show WBCs 6.78, hemoglobin stable 10.1, creatinine improved to 1.15. Urine culture prelim no growth; Blood cultures preliminary pseudomonas, repeat pending. Knox draining appropriately. Hematuria has cleared. Maintain Knox catheter and monitor urine output. Okay to hand irrigate as needed for clots, retention, suprapubic pain. Patient requests to maintain the catheter upon return to rehab to allow further time for healing/recovery. We can arrange a void trial in our office or can be performed at his rehab facility. Continue antibiotics and tailor per culture sensitivities. Continue supportive care. Will arrange follow-up with our service. Urology will sign off, please contact us with any further questions/concerns or changes in patient status. Admission and Anticipated Discharge Date Admission Date: March 05, 2025 Subjective Pt seen at bedside today. Awake and resting in bed on arrival. No acute distress. Knox intact and draining yellow urine. No c/o pain. No fevers. Review of Systems Constitutional: as per Subjective / HPI Genitourinary: + as per Subjective / HPI Physical Exam Constitutional: no acute distress Respiratory: no respiratory distress and no labored breathing Skin: No visible rashes or lesions to exposed skin areas Neurologic: awake Psychiatric: Orientation: alert and cooperative Genitourinary: Knox intact Results & Data Vital Signs (Past 12 Hours) Vital Signs Temp Pulse Pulse Resp BP Pulse Ox O2 Del Method 03/08/25 08:06 36.7 C 65 18 135/63 94 Room Air 03/08/25 02:16 36.5 C 68 18 129/69 95 Room Air 03/07/25 22:42 36.6 C 67 16 136/67 92 Room Air 03/07/25 22:22 65 PG Care Time/CCT Total # of Minutes Spent Total Time Spent with Patient: Total time spent is greater than 50% in coordination of care (as documented) at patient's floor/unit and/or counseling patient: Coding Level of Care Code 46571 SUB INP/OBS CARE 2/35MIN Diagnoses Hematuria R31.9
[2025-03-08] MEDS ORDERED: CEFEPIME 2 GM VIAL IV SCH (10:30)
[2025-03-08] MEDS: CEFEPIME 2000MG 2,000 MG/20 ML SYR IV SCH (11:14)
--- NOTE | 2025-03-08 13:44 | Hospitalist Progress Note ---
Date of Service March 08, 2025 Assessment & Plan (1) Gross hematuria: Plan: Developed after his chronic indwelling Knox catheter was changed at [facility]. Now only old blood is seen which will eventually resolve. Eliquis was stopped on admission. Hemoglobin is stable. Urology consultation appreciated. No intervention planned at this time. They will follow-up as an outpatient (2) Catheter-associated urinary tract infection: Plan: Pseudomonas isolated. Zosyn has been switched over to cefepime. Antibiotic day 4. He has given consent for midline IV placement for continued IV antibiotic therapy once discharged back to [facility] hopefully tomorrowMarch 09. Blood cultures positive on admission and repeated on March 07 remain negative to date. (3) Gram-negative bacteremia: Plan: Pseudomonas isolated. Repeat blood cultures drawn on March 07 remain negative to date. Zosyn has been switched to cefepime. (4) Sepsis: Plan: Suspected on admission with borderline low blood pressure, elevated lactic acid level, tachycardia. Now resolved. Telemetry (5) Acute worsening of stage 3 chronic kidney disease: Plan: Creatinine 1.7 on admission. Now normalized. Serial labs (6) Tibial plateau fracture: Plan: Recent open reduction internal fixation of right tibial plateau fracture. Eliquis was discontinued on admission due to gross hematuria and aspirin started in its place. Supportive care (7) CAD (coronary artery disease): Plan: History of coronary artery bypass grafting. Currently stable. Continue current medical management. Telemetry (8) Diarrhea: Plan: Appears to be noninfectious. He received Lomotil on March 06 and Metamucil twice daily scheduled dosing has been started. Improved. Will follow Plan Hopeful return to [facility] tomorrow, March 09, to complete a 14-day course of IV antibiotic. Admission and Anticipated Discharge Date Admission Date: March 05, 2025 Subjective Alert and oriented. No distress. Unfortunately the Pseudomonas is not sensitive to any oral antibiotics. Zosyn has been switched over to cefepime. He has given consent for midline placement so he can continue IV antibiotic when he returns to [facility] hopefully tomorrowMarch 09 Review of Systems 2 Review of Systems: Constitutionalno fever or chills ENTno blurred vision, no double vision, no epistaxis, no sore throat Respiratoryno cough, no wheezing, no shortness of breath Cardiacno palpitations, no chest pain, no syncope Rahul nausea, vomiting, diarrhea, melena, hematochezia GUgross hematuria is resolving in Knox catheter ( recently changed) Musculoskeletalno joint pain, no muscle tenderness Skinno bruising, no rashes, no pruritus Neurono isolated weakness, no paresthesia. Generalized severe weakness Psychno depression, no anxiety Physical Exam 2 Physical Exam: General-alert and oriented. No fever. No distress HEENT-head atraumatic and normocephalic, pupils equal and reactive to light, extraocular muscles intact Neck-no lymphadenopathy or thyromegaly, trachea midline Chest-clear to auscultation. No rales, wheezing or rhonchi Cardiac-regular rate and rhythm, normal S1 and S2 Abdomen-normal bowel sounds, no hepatosplenomegaly GUFoley catheter in place. Some old blood noted. Extremities-no cyanosis, clubbing, or edema Neuro-cranial nerves II through XII intact, motor and sensory function within normal limits, strength symmetrical, no focal deficits Psych-normal affect Results & Data Results & Data Vital Signs (Past 12 Hours) Vital Signs Temp Pulse Pulse Resp BP Pulse Ox O2 Del Method 03/08/25 11:28 Room Air 03/08/25 08:06 36.7 C 65 18 135/63 94 Room Air 03/08/25 05:59 59 L 03/08/25 02:16 36.5 C 68 18 129/69 95 Room Air Laboratory Results 03/08/25 07:45 03/08/25 07:45 PG Care Time/CCT Total # of Minutes Spent Total Time Spent with Patient: Total time spent is greater than 50% in coordination of care (as documented) at patient's floor/unit and/or counseling patient: Coding Level of Care Code 07834 SUB INP/OBS CARE 3/50MIN Diagnoses Gross hematuria R31.0 Catheter-associated urinary tract infection T83.511A; N39.0 Gram-negative bacteremia R78.81 Sepsis A41.9 Acute worsening of stage 3 chronic kidney disease N18.30 Tibial plateau fracture S82.143A Coronary artery disease involving [place] coronary artery of [place] heart without angina pectoris I25.10 Coronary Disease-Associated Artery/Lesion type: [place] artery [place] vs. transplanted heart: [place] heart Associated angina: without angina Diarrhea R19.7 (7) CAD (coronary artery disease) Coronary Disease-Associated Artery/Lesion type: [place] artery [place] vs. transplanted heart: [place] heart Associated angina: without angina Qualified Code(s): I25.10 - Atherosclerotic heart disease of [place] coronary artery without angina pectoris
[2025-03-09 03:18] VITALS: O2SAT 94
[2025-03-09 08:23] VITALS: BP 152/74; TEMP 97.5
--- NOTE | 2025-03-09 11:08 | Discharge Summary ---
Discharge Summary Date of Service March 09, 2025 Principal Dx & Hospital Course #1 = Principal Diagnosis (1) Gross hematuria: Developed after his chronic indwelling Knox catheter was changed at [facility]. Now only old blood is seen which will eventually resolve. Eliquis was stopped on admission. Hemoglobin is stable. Urology consultation appreciated. No intervention planned at this time. They will follow-up as an outpatient (2) Catheter-associated urinary tract infection: Pseudomonas isolated. Zosyn has been switched over to cefepime. Antibiotic day 5. Midline IV catheter has been placed on the right arm. Blood cultures positive on admission and repeated on March 07 which remain negative to date. (3) Gram-negative bacteremia: Pseudomonas isolated. Repeat blood cultures drawn on March 07 remain negative to date. Zosyn has been switched to cefepime. (4) Sepsis: Suspected on admission with borderline low blood pressure, elevated lactic acid level, tachycardia. Now resolved. Telemetry (5) Acute worsening of stage 3 chronic kidney disease: Creatinine 1.7 on admission. Now normalized. Serial labs (6) Tibial plateau fracture: Recent open reduction internal fixation of right tibial plateau fracture. Eliquis was discontinued on admission due to gross hematuria and aspirin started in its place. Supportive care (7) CAD (coronary artery disease): History of coronary artery bypass grafting. Currently stable. Continue current medical management. Telemetry (8) Diarrhea: Appears to be noninfectious. He received Lomotil on March 06 and Metamucil twice daily scheduled dosing was also administered while hospitalized in the acute care setting. Now resolved Plan Return to [facility] today, March 09. He will complete a 14-day course of IV antibiotic. Admission HPI Per Admitting Provider 80-year-old white male from [facility] who recently underwent open reduction internal fixation of a right tibial plateau fracture. 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 He recently had the Knox catheter changed at [facility] then developed gross hematuria. He is on Eliquis which has been stopped. He recently had E. coli related CAUTI. He is now on Zosyn. Urology consultation has been requested and is pending. He has acute on chronic kidney disease stage III on admission with creatinine 1.7 and baseline 1.1. Discharge Exam General-alert and oriented. No fever. No distress HEENT-head atraumatic and normocephalic, pupils equal and reactive to light, extraocular muscles intact Neck-no lymphadenopathy or thyromegaly, trachea midline Chest-clear to auscultation. No rales, wheezing or rhonchi Cardiac-regular rate and rhythm, normal S1 and S2 Abdomen-normal bowel sounds, no hepatosplenomegaly GUFoley catheter in place. Some old blood noted. Extremities-no cyanosis, clubbing, or edema Neuro-cranial nerves II through XII intact, motor and sensory function within normal limits, strength symmetrical, no focal deficits Psych-normal affect Discharge Plan Discharge Items Patient Disposition: Transfer Assisted Fac Reason For Visit: GROSS HEMATURIA,PPOSSIBLE CAUTI,POSS SEPSIS Discharge Diagnosis: Pseudomonas bacteremia, Pseudomonas CAUTI, sepsis, gross hematuria, acute on chronic kidney disease stage III Condition on Discharge: Good Activity: Resume your previous activity Non-emergency contact: Primary Care Provider Call non-emergency contact if: you have any medication questions Follow-up/Referrals: Fernando Salmeron III, MD [Primary Care Provider] - Diet: Regular and Heart Healthy Addtl Attending Provider Instructions: Continue cefepime intravenous antibiotic for 10 more days. Eliquis has been discontinued and replaced by aspirin therapy. All other medications remain the same. Pending Studies at Discharge: No Stand-Alone Forms: My [facility] Skilled Items Patient informed of condition?: Yes DNR: No Discharge Level of Care: Skilled Communicable Disease: No Discharge Prognosis: Stable Lines: Mid-Line Urinary Catheter: Yes Medications and DC Order Prescriptions: New aspirin 81 mg Tablet,Delayed Release (Dr/Ec) 81 mg PO QAM Qty: 30 0RF cefepime 2 gram recon soln 2 g IV Q12H Continued aspirin 81 mg Tablet,Delayed Release (Dr/Ec) 81 mg PO QAM 30 Days Qty: 30 3RF acetaminophen [Tylenol] 325 mg Tablet 650 mg PO Q6H PRN (Reason: .PAIN 1-4) levetiracetam 500 mg Tablet 500 mg PO AMHS magnesium hydroxide [Milk of Magnesia] 400 mg/5 mL Suspension 2,400 mg PO DAILY PRN (Reason: Constipation) Rx Instructions: If no BM for 3 days bisacodyl [Dulcolax (bisacodyl)] 10 mg Suppository 10 mg KS DAILY PRN (Reason: Constipation) Rx Instructions: Give on day 3 on the -11 shift if no BM after MOM Fleet Enema 19-7 gram/118 mL Enema 118 ml KS DAILY PRN (Reason: Constipation) Rx Instructions: Give on 7-3 shift on day 4 if no BM after Dulcolax ferrous sulfate 325 mg (65 mg iron) Tablet,Delayed Release (Dr/Ec) 325 mg PO QAM oxycodone 5 mg Tablet 5 mg PO Q6H PRN (Reason: .PAIN RATED 5-10) cholecalciferol (vitamin D3) 250 mcg (10,000 unit) Tablet 250 mcg PO WK Rx Instructions: docusate sodium 100 mg Capsule 100 mg PO BID Qty: 30 0RF sennosides [Senokot] 8.6 mg Tablet 17.2 mg PO HS Qty: 10 0RF cyanocobalamin (vitamin B-12) 1,000 mcg capsule 1,000 mcg PO DAILY Qty: 30 0RF polyethylene glycol 3350 [Miralax] 17 gram/dose Powder 17 g PO QAM finasteride 5 mg Tablet 5 mg PO QAM atorvastatin 40 mg tablet 40 mg PO HS sulfamethoxazole-trimethoprim [Bactrim DS] 800-160 mg tablet 1 tab PO AMHS acetaminophen [Tylenol] 325 mg Tablet 650 mg PO Q6 PRN (Reason: temp > 100) tamsulosin 0.4 mg Capsule 0.4 mg PO HS Discontinued Eliquis 2.5 mg Tablet 2.5 mg PO AMHS Discharge Orders: Discharge Order (Routine); Ordered 03/09/25 Ordered By: Myron Hung Admission Data Admit Date/Time: 03/05/25 14:44 Attending Provider: Myron Hung Admit Provider: Myron Hung Primary Care Provider: Fernando Salmeron III Other Providers: Myron Hung; Konrad Sargent; Buffy Hawkins; Cuco Reynolds; Lenore Ham; Matthew Chisholm; Lesly Whitten; Don Molina; Roni Metz; Servando Roper; Alfonso Cordon; [facility] Hospital Stay Data Consultations 03/05/25 14:16 ED Decision to Admit Stat 03/05/25 17:19 Consult Urology Routine Diagnostic Imagining Performed 03/05/25 11:59 CT abd pelvis IV con only Stat Pending Results Patient Have Any Pending Studies at Discharge: No Discharge Instructions Given to Patient (Per Discharging Provider) Continue cefepime intravenous antibiotic for 10 more days. Eliquis has been discontinued and replaced by aspirin therapy. All other medications remain the same. Total Time Total Time Spent Total Time Spent (In Minutes): 50-minute Coding Level of Care Code 53157 INP/OBS DISCH >30 MIN Diagnoses Gross hematuria R31.0 Catheter-associated urinary tract infection T83.511A; N39.0 Gram-negative bacteremia R78.81 Sepsis A41.9 Acute worsening of stage 3 chronic kidney disease N18.30 Tibial plateau fracture S82.143A Coronary artery disease involving [place] coronary artery of [place] heart without angina pectoris I25.10 Coronary Disease-Associated Artery/Lesion type: [place] artery [place] vs. transplanted heart: [place] heart Associated angina: without angina Diarrhea R19.7
[2025-03-09 14:06] VITALS: PULSE 65
== END 2025-03-09 16:15 | DRG 698 ==
LOC: SUATTDRO → ED 11:41 → 2N 14:44